=== PATIENT | female | born 1945 | race Caucasian/White ===

== ENCOUNTER 2020-02-01 09:26 | Outpatient (CLI) | payer OTHER, SELFPAY ==
--- NOTE | 2020-02-01 | ECG_ITS ---
Measurements Intervals [place] Rate: 72 P: 78 AL: 180 QRS: 29 QRSD: 100 T: 84 QT: 391 QTc: 429 Interpretive Statements SINUS RHYTHM DELAYED PRECORDIAL R/S TRANSITION BORDERLINE ST-T WAVE ABNORMALITY- LATERAL LEADS BORDERLINE ECG Electronically Signed On 02-01-2020 10:31:30 CDT by Rj Harvey D.O.
== END 2020-02-01 09:27 | disposition home or self-care (01) ==
PROVIDERS: PCP Internal Medicine
DX: I48.91 Unspecified atrial fibrillation (principal); R94.31 Abnormal electrocardiogram [ECG] [EKG]
CPT/HCPCS: 93005

== ENCOUNTER 2020-02-09 09:36 | Outpatient (CLI) | payer OTHER, SELFPAY ==
--- NOTE | 2020-02-09 | ECG_ITS ---
Measurements Intervals [place] Rate: 67 P: 90 AL: 175 QRS: 55 QRSD: 96 T: 81 QT: 396 QTc: 418 Interpretive Statements SINUS RHYTHM ATRIAL PREMATURE COMPLEX DELAYED PRECORDIAL R/S TRANSITION BORDERLINE ECG Electronically Signed On 02-09-2020 10:02:15 CDT by Rj Harvey D.O.
== END 2020-02-09 09:37 | disposition home or self-care (01) ==
PROVIDERS: PCP Internal Medicine
DX: I48.91 Unspecified atrial fibrillation (principal); R94.31 Abnormal electrocardiogram [ECG] [EKG]
CPT/HCPCS: 93005

== ENCOUNTER 2020-02-11 13:53 | Outpatient (CLI) | payer OTHER, SELFPAY ==
--- NOTE | 2020-02-11 | ECHO_ITS ---
Patient Info Name: Fallon Agarwal Age: 74 years : 1945 Gender: Female Ht: 68 in Wt: 180 lbs BSA: 2.00 m2 HR: 76 bpm BP: 138 / 76 mmHg Heart Rhythm: Sinus Rhythm Technical Quality: Good Exam Date: 02/11/2020 2:18 PM Exam Location: [facility] Patient Status: Outpatient Admit Date: 02/11/2020 Staff Ordering Physician: PHYSICIAN NOT ON STAFF, NONSTAFF Repairer Sash And Door: Roberta Tian RDCS Attending Provider: PHYSICIAN NOT ON STAFF, NONSTAFF Exam Type: CA echo doppler color flow Study Info Indications - afib Complete two-dimensional, color flow and Doppler transthoracic echocardiogram is performed. Summary 1. Normal global left ventricular function and size with an ejection fraction of 60-65%, grade 1 diastolic dysfunction, mild concentric left ventricular hypertrophy. 2. Left atrial chamber dimension is moderately enlarged. 3. There is no significant valve disease. 4. No pulmonary hypertension, estimated pulmonary arterial systolic pressure is 33 mmHg. 5. Normal sinus rhythm with PVCs. Left Ventricle Left ventricular chamber dimension is normal. Left ventricular systolic function is normal, estimated at 60-65%. There is mildly increased left ventricular wall thickness. Left ventricular septal wall motion is normal. The left ventricular diastolic function is grade I diastolic dysfunction. Right Ventricle Right ventricular chamber dimension is normal. Right ventricular systolic function is normal. Left Atria Left atrial chamber dimension is moderately enlarged. Right Atria Right atrial chamber dimension is normal. Aortic Valve The aortic valve is trileaflet. There is no aortic valve sclerosis. There is no aortic valve stenosis. There is trace aortic valve regurgitation. Pulmonic Valve The pulmonic valve is normal. There is no pulmonic valve stenosis. There is no pulmonic regurgitation. Mitral Valve The mitral valve has normal leaflets. There is no mitral valve stenosis. There is trace mitral valve regurgitation. Tricuspid Valve The tricuspid valve leaflets are normal. There is no significant tricuspid valve stenosis. There is no significant valve disease. No pulmonary hypertension, estimated pulmonary arterial systolic pressure is 33 mmHg. Pericardium/Pleural The pericardium appears normal. There is no pericardial effusion. Inferior Vena Cava Normal inferior vena cava with >50% collapse upon inspiration consistent with Empty right atrial pressure, 10 mmHg. Aorta The aortic root size at the sinus of Valsalva is normal. The prox ascending aorta size is normal. Left Ventricular Outflow Tract Name Value Normal LVOT 2D LVOT Diameter 2.0 cm LVOT Doppler LVOT Peak Gradient 7 mmHg LVOT Mean Gradient 4 mmHg LVOT VTI 21 cm LVOT VTI/AV VTI Ratio 0.7 LVOT Stroke Volume 64 ml LVOT CO 16.7 l/min LVOT CI 8.4 l/min/m2 Pulmonic Valv
== END 2020-02-11 13:54 | disposition home or self-care (01) ==
LOC: ANHCARD 13:54
PROVIDERS: PCP Internal Medicine
DX: I48.91 Unspecified atrial fibrillation (principal)
CPT/HCPCS: 93306

== ENCOUNTER 2020-03-01 15:00 | Outpatient (CLI) | payer OTHER, SELFPAY ==
--- NOTE | ~2020-03-01 | MM_ITS ---
EXAMINATION: MM screening [facility] HISTORY: Screening TECHNIQUE: Craniocaudal and mediolateral oblique 3-D tomosynthesis images were obtained and synthetic 2-D images were generated. CAD analysis was submitted and interpreted. COMPARISON: Comparison to multiple prior studies sequentially, with oldest reviewed study dated 12/22. BREAST PARENCHYMAL COMPOSITION: There are scattered areas of fibroglandular density. FINDINGS: There is no evidence of suspicious mass, calcification, or architectural distortion to sugg est malignancy in either breast. There has been no suspicious interval change. IMPRESSION: 1. No mammographic evidence of malignancy. 2. Recommend routine screening mammography in one year. BI-RADS Category 1: Negative Reviewed, dictated and finalized at location A.
== END 2020-03-01 15:01 | disposition home or self-care (01) ==
LOC: ANHIMG 15:01
PROVIDERS: PCP Internal Medicine; Visit Provider Nurse Practitioner
DX: Z12.31 Encounter for screening mammogram for malignant neoplasm of breast (principal)
CPT/HCPCS: 77063; 77067

== ENCOUNTER 2020-07-05 12:50 | Outpatient (NON) | payer OTHER, SELFPAY ==
[2020-07-05 23:32] LABS: SARS-CoV-2 RNA PCR Negative
== END 2020-07-05 12:51 ==
LOC: ANHCOVIDDT 12:51
PROVIDERS: PCP Internal Medicine; Visit Provider Nurse Practitioner
DX: J06.9 Acute upper respiratory infection, unspecified (principal); Z20.828 Contact with and (suspected) exposure to other viral communicable diseases
CPT/HCPCS: 87635; C9803; U0003

== ENCOUNTER 2020-07-25 13:40 | Outpatient (CLI) | payer OTHER, SELFPAY ==
--- NOTE | ~2020-07-25 | CT_ITS ---
EXAMINATION: CT sinus wo con DATE: 07/25/2020 14:01 INDICATION: Chronic sinusitis. Congestion. TECHNIQUE: Computed tomography (CT) of the paranasal sinuses was performed without contrast. Iterativ e reconstruction technique was employed. Exam dose: 293.24 mGy-cm total exam DLP. COMPARISON: 10/09/2012 CT sinuses FINDINGS: There is mild leftward bowing of the upper portion of the nasal septum and mild rightward b owing of the lower portion of the septum. Moderate prominence of the nasal turbinates. Mild intralamellar cell of right middle nasal turbinate. There is soft tissue thickening at the right maxillary ostium and infundibulum. The left infundibulum and maxillary ostium are patent. There is mild new comparison thickening of the maxillary sinuses, greater on the right. There is mode rate soft tissue thickening of both frontal sinuses. The ethmoid air cells and sphenoid sinuses are clear bilaterally. The mastoid air cells are normally developed and aerated bilaterally. Middle and inner ear apparatus appear unremarkable bilaterally. IMPRESSION: Partial opacification of right ostiomeatal unit Mild intralamellar cell of right middle nasal turbinate Moderate soft tissue thickening of the frontal sinuses and mildly compresses thickening of the maxill cecelia sinuses Reviewed, dictated and finalized at Location A. Reviewed, dictated and finalized at location A. COMMUNICATIONS MANAGER IMPRESSION: Partial opacification of right ostiomeatal unit Mild intralamellar cell of right middle nasal turbinate Moderate soft tissue thickening of the frontal sinuses and mildly compresses th ickening of the maxillary sinuses
== END 2020-07-25 13:41 | disposition home or self-care (01) ==
PROVIDERS: PCP Internal Medicine; Visit Provider Otolaryngology
DX: J32.9 Chronic sinusitis, unspecified (principal)
CPT/HCPCS: 70486

== ENCOUNTER → 2020-10-25 10:56 | Outpatient (REF) | payer OTHER, SELFPAY | LOC: ANHLAB 10:56 | PROVIDERS: PCP Internal Medicine; Visit Provider Nurse Practitioner | DX: R22.0 Localized swelling, mass and lump, head (principal) | CPT/HCPCS: 88304 ==

== ENCOUNTER 2021-01-26 13:58 | Emergency (ER) | payer OTHER, SELFPAY ==
--- NOTE | ~2021-01-26 | XR_ITS ---
EXAMINATION: XR foot RT min 3V DATE: 01/26/2021 14:35 INDICATION: Right foot pain TECHNIQUE: Dorsoplantar, lateral, and 2 oblique views of the right foot were obtained. COMPARISON: None. FINDINGS: Bone alignment is normal. There is no fracture. 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 There is plantar soft tissue swelling of the foot. No radiopaque foreign body is identified. IMPRESSION: 1. Soft tissue swelling without acute osseous abnormality. Reviewed, dictated and finalized at location B.
--- NOTE | 2021-01-26 14:19 | ED.LOWEXIN ---
HPI - Extremity Injury (Lower) General Chief Complaint: Extremity Injury, Lower Stated Complaint: rt foot injury Time Seen by Provider: 01/26/21 14:19 Source: patient Mode of arrival: ambulatory Limitations: no limitations History of Present Illness HPI Narrative: Fallon Agarwal is a 75 yo female with a PMH of HTN, afib, hypothyroid, [facility] on [place] that caused twisting of foot/ankle 1 week ago. Has iced foot and tried to pad calcaneus and still has pain with walking Related Data Home Medications Medication Instructions Recorded Confirmed flecainide 50 mg tablet 50 mg PO Q12H 03/10/20 01/26/21 Allergies Allergy/AdvReac Type Severity Reaction Status Date / Time fluticasone AdvReac Severe laryngitis Verified 01/26/21 14:19 [From Jeannette Fraser] salmeterol AdvReac Severe laryngitis Verified 01/26/21 14:19 [From Jeannette Fraser] Review of Systems Review of Systems: Narrative: CONSTITUTIONAL: Denies fever, chills, sweats. EYES: Denies visual changes, redness, discharge. ENT: Denies rhinorrhea, congestion, sore throat, otalgia. CARDIOVASCULAR: Denies chest pain, palpitations, edema. RESPIRATORY: Denies dyspnea, wheezing, cough GASTROINTESTINAL: Denies abdominal pain, nausea, vomiting, diarrhea. GENITOURINARY: Denies dysuria, hematuria, abnormal discharge SKIN: Denies rash or itching. NEUROLOGIC: Denies numbness, or focal weakness. PSYCHIATRIC: Denies anxiety or depression. R foot pain and swelling around heel and inside foor PMFSH Past Medical History Medical History (Updated 01/26/21 @ 14:55 by Lori Ferrer CNP) Bradycardia Chronic sinusitis Foot sprain Otitis media with effusion Seborrheic keratoses Tenosynovitis of thumb Upper respiratory infection Xerosis of skin Family History Family History Father Family history of respiratory disorder Family history of malignant neoplasm of urinary bladder Patient's father is Grandparent Carcinoma of colon Mother Patient's mother is Social History Social History Smoking packs per day: 1 Smoking cigarettes per day: 20.0 Years smoked: 20 Smoking pack-years: 20.00 Smoking status: Former smoker Tobacco type: cigarettes Second hand tobacco smoke exposure: No Smoking end date: 07/29/78 Alcohol intake: never Substance use: never Substance use type: does not use Comments At time of signature, I agree with nursing past medical, surgical, social and family history. There is no relevant family history pertinent to the presenting complaint. Exam Narrative: Exam Narrative: GENERAL: This is a well-nourished, well-developed patient, in mild distress. HEAD: normocephalic, atraumatic. EYES: Sclera clear/white. Vision is grossly intact. EARS: External ears normal, . Hearing grossly intact. NOSE: External nose normal without nasal discharge, nares without redness, no rhinorrhea. THROAT: Mucous membranes moist, NECK: Neck supple, CARDIOVASCULAR: Regular rate and rhythm without murmurs, gallops, or rubs. RESPIRATORY: Clear to auscultation. Breath sounds equal bilaterally. No wheezes, rales, or rhonchi. GASTROINTESTINAL: Abdomen soft, SKIN: warm, intact with no suspicious lesions or rash, good texture and turgor. NEURO: awake, alert, and oriented to person, place and time. There were no obvious focal neurologic abnormalities. Steady gait EXTREMITIES: Normal range of motion. On right she is able to wiggle toes has 2+ pedal pulse but has some soft tissue swelling on the lateral calcaneal area and pain in the medial midfoot BACK: Nontender without deformity Course Course Emergency Course: Patient came to [facility] to assess right foot after fall on a tree coming last week X-ray shows soft tissue swelling without acute osseous abnormality Placed in [place]omon wrap, instru
[2021-01-26 14:22] VITALS: BP 128/80; PULSE 81; RESP 16; TEMP 37.2; O2SAT 99
== END 2021-01-26 15:00 | disposition home or self-care (01) ==
PROVIDERS: Emergency Provider Nurse Practitioner; PCP Internal Medicine
DX: S93.691A Other sprain of right foot, initial encounter (principal); X50.9XXA Other and unspecified overexertion or strenuous movements or postures, initial encounter; I10 Essential (primary) hypertension; I48.91 Unspecified atrial fibrillation; E03.9 Hypothyroidism, unspecified
CPT/HCPCS: 73630; 99213; G0463

== ENCOUNTER 2021-01-27 14:01 | Outpatient (CLI) | payer OTHER, SELFPAY ==
--- NOTE | 2021-01-27 | ECHO_ITS ---
Patient Info Name: Fallon Agarwal Age: 75 years : 1945 Gender: Female Ht: 68 in Wt: 180 lbs BSA: 2.00 m2 HR: 67 bpm BP: 150 / 94 mmHg Technical Quality: Good Exam Date: 01/27/2021 2:51 PM Exam Location: [facility] Patient Status: Outpatient Admit Date: 01/27/2021 Staff Ordering Physician: BRIGITTE FELTON MD Senior Infrastructure Engineer: Carmen Ferrell RDCS Attending Provider: BRIGITTE FELTON MD Referring Physician: PURNIMA ARIZA; Exam Type: CA echo doppler color flow Study Info Indications I48.0 - Paroxysmal atrial fibrillation Complete two-dimensional, color flow and Doppler transthoracic echocardiogram is performed. Summary 1. Complete two-dimensional, color flow and Doppler transthoracic echocardiogram is performed. 2. Left ventricular chamber dimension is normal. 3. Left ventricular systolic function is normal, estimated at 60-65%. 4. The left ventricular diastolic function is grade II diastolic dysfunction. 5. E/e' 10 is mildly elevated. 6. Global longitudinal strain is normal at -21.9%. 7. Left atrial chamber dimension is mildly enlarged. 8. Right atrial chamber dimension is mildly enlarged. 9. There is mild mitral valve regurgitation. 10. There is mild tricuspid valve regurgitation. 11. No pulmonary hypertension, estimated pulmonary arterial systolic pressure is 24 mmHg. Left Ventricle E/e' 10 is mildly elevated. Global longitudinal strain is normal at -21.9%. Left ventricular chamber dimension is normal. Left ventricular systolic function is normal, estimated at 60-65%. The left ventricular diastolic function is grade II diastolic dysfunction. Right Ventricle Right ventricular systolic function is normal at 2.6 cm. Right ventricular chamber dimension is normal. Left Atria Left atrial chamber dimension is mildly enlarged. Right Atria Right atrial chamber dimension is mildly enlarged. Aortic Valve The aortic valve is trileaflet. There is no aortic valve stenosis. There is no aortic valve regurgitation. Pulmonic Valve There is no pulmonic regurgitation. Mitral Valve There is no mitral valve stenosis. There is mild mitral valve regurgitation. Tricuspid Valve There is mild tricuspid valve regurgitation. No pulmonary hypertension, estimated pulmonary arterial systolic pressure is 24 mmHg. Pericardium/Pleural There is no pericardial effusion. Inferior Vena Cava Normal inferior vena cava with >50% collapse upon inspiration consistent with normal right atrial pressure, 5 mmHg. Aorta The aortic root size at the sinus of Valsalva is normal. Left Ventricular Outflow Tract Name Value Normal LVOT 2D LVOT Diameter 1.9 cm LVOT Doppler LVOT Peak Gradient 4 mmHg LVOT Mean Gradient 2 mmHg LVOT VTI 20 cm LVOT VTI/AV VTI Ratio 1.2 LVOT Stroke Volume 59 ml LVOT CO 3.9 l/min LVOT CI 2.0 l/min/m2 Pulmonic Valve
== END 2021-01-27 14:02 | disposition home or self-care (01) ==
PROVIDERS: PCP Internal Medicine
DX: I48.91 Unspecified atrial fibrillation (principal)
CPT/HCPCS: 93306

== ENCOUNTER 2021-03-01 10:01 | Outpatient (CLI) | payer OTHER, SELFPAY ==
--- NOTE | ~2021-03-01 | DEXA_ITS ---
Bone Density Report Name: Fallon Agarwal Age: 75 Sex: Female Ethnicity: White Date of : 1945 Indication: osteopenia; height loss; inflammatory bowel disease; asthma or emphysema; hysterectomy; postmenopausal Referring Provider: Dariel Minor Study: Bone densitometry was performed. Exam Date: March 01, 2021 Accession number: [id number] Bone Density: Region BMD T-score Z-score Classification AP Spine (L1, L2, L3) 0.960 -0.5 2.0 Normal Femoral Neck (Left) 0.681 -1.5 0.7 Osteopenia Total Hip (Left) 0.750 -1.6 0.4 Osteopenia Total Hip Bilateral Avg 0.720 -1.8 0.2 Osteopenia Femoral Neck (Right) 0.716 -1.2 1.0 Osteopenia Total Hip (Right) 0.689 -2.1 -0.1 Osteopenia World Health Organization criteria for BMD impression classify patients as: Normal (T-score at or above -1.0), Osteopenia (T-score between -1.0 and -2.5), or Osteoporosis (T-score at or below -2.5). 10-year Fracture Risk(1): Major Osteoporotic Fracture 13% Hip Fracture 2.8% Reported Risk Factors: [place] (), Neck BMD=0.681, BMI=27.8 (1) FRAX(R) Version 3.08. Fracture probability calculated for an untreated patient. Fracture probability may be lower if the patient has received treatment. Previous Exams: Region Exam Age BMD T-score BMD Change BMD Change Date g/cm2 vs Baseline vs Previous AP Spine(L1, L2, L3) 03/01/2021 75 0.960 -0.5 -0.066(-6.4%)# -0.007(-0.7%) 01/23/2019 73 0.967 -0.5 -0.059(-5.7%)# 0.028(3.0%)* 01/10/2017 71 0.939 -0.7 -0.087(-8.5%)# -0.087(-8.5%)# 12/14/2011 66 1.026 0.1 Total Hip(Left) 03/01/2021 75 0.750 -1.6 -0.045(-5.7%)# -0.020(-2.6%) 01/23/2019 73 0.771 -1.4 -0.025(-3.1%)# 0.009(1.2%) 01/10/2017 71 0.762 -1.5 -0.034(-4.3%)# -0.034(-4.3%)# 12/14/2011 66 0.796 -1.2 Total Hip(Right) 03/01/2021 75 0.689 -2.1 -0.112(-14.0%) -0.037(-5.2%)* 01/23/2019 73 0.727 -1.8 -0.075(-9.3%)# -0.031(-4.1%)* 01/10/2017 71 0.758 -1.5 -0.043(-5.4%)# -0.043(-5.4%)# 12/14/2011 66 0.801 -1.2 *Denotes significance at 95% confidence level, LSC for AP Spine = 0.022 g/cm2, LSC for Total Hip = 0.027 g/cm2 Clinical Information Provided by Patient: Has used the following medications: Vitamin D Has the following medical conditions: Asthma or Emphysema, Inflammatory bowel diseases, Hysterectomy Patient maximum height was 69 Menopause Age: 38 Does not regularly consume dairy products Onset of menses at age 11 Number of children 2
== END 2021-03-01 10:02 | disposition home or self-care (01) ==
LOC: ANHIMG 10:03
PROVIDERS: PCP Internal Medicine; Visit Provider Internal Medicine
DX: M81.0 Age-related osteoporosis without current pathological fracture (principal); M85.852 Other specified disorders of bone density and structure, left thigh; M85.851 Other specified disorders of bone density and structure, right thigh
CPT/HCPCS: 77080

== ENCOUNTER 2021-03-07 10:46 | Outpatient (CLI) | payer OTHER, SELFPAY ==
--- NOTE | ~2021-03-07 | MM_ITS ---
EXAMINATION: MM screening [facility] HISTORY: Screening TECHNIQUE: Craniocaudal and mediolateral oblique 3-D tomosynthesis images were obtained and synthetic 2-D images were generated. CAD analysis was submitted and interpreted. COMPARISON: Comparison to multiple prior studies sequentially, with oldest reviewed study dated 08/2014. BREAST PARENCHYMAL COMPOSITION: There are scattered areas of fibroglandular density. FINDINGS: There is no evidence of suspicious mass, calcification, or architectural distortion to sugg est malignancy in either breast. There has been no suspicious interval change. IMPRESSION: 1. No mammographic evidence of malignancy. 2. Recommend routine screening mammography in one year. BI-RADS Category 1: Negative Reviewed, dictated and finalized at location A.
== END 2021-03-07 10:47 | disposition home or self-care (01) ==
PROVIDERS: PCP Internal Medicine; Visit Provider Nurse Practitioner
DX: Z12.31 Encounter for screening mammogram for malignant neoplasm of breast (principal)
CPT/HCPCS: 77063; 77067

== ENCOUNTER → 2021-03-08 09:33 | Outpatient (CLI) | payer OTHER, SELFPAY ==
--- NOTE | ~2021-03-08 | XR_ITS ---
EXAMINATION: XR chest 2V DATE: 03/08/2021 09:45 INDICATION: Cough. TECHNIQUE: Frontal and lateral views of the chest were obtained. COMPARISON: Chest 2 views 01/02/2017 FINDINGS: The chest demonstrates clear lungs without pneumonia, pleural effusion, or pneumothorax. Th e heart size is normal. IMPRESSION: 1. No acute cardiopulmonary disease. Reviewed, dictated and finalized at location A.
== END ==
PROVIDERS: PCP Internal Medicine; Visit Provider Nurse Practitioner
DX: R05 Cough (principal)
CPT/HCPCS: 71046

== ENCOUNTER 2021-04-19 09:19 | Outpatient (CLI) | payer OTHER, SELFPAY ==
--- NOTE | 2021-04-19 16:09 | WPDPFTINT ---
PFT Procedure Performed PFT Procedure Performed Plethysmography (Lung Vol) Diffusing Cap (DLCO) Flow Vol Loop Spirometry w/o Bronchodil PFT Interpretation This is a pulmonary function test with spirometry, plethysmography and diffusing capacity. The test was performed and results interpreted in accordance with the 2019 and 2005 ATS/ERS Task Force guidelines respectively using the Global Lung Function Initiative-2012 reference equations. Patient demonstrated good effort and cooperation. Reproducibility criteria were met. The quality of the spirometry maneuver was Grade A. Findings: Spirometry: The contour the inspiratory and expiratory flow tracing are normal. The FVC is 3.32 L, 114% predicted. The FEV1 is 2.40 L, 109% predicted. The FVC V1: FVC ratio 72%. Plethysmography: The total lung capacity is 4.92 L, 90% predicted. The functional residual capacity is 2.38 L, 75% predicted. The residual volume is 1.60 L, 65% predicted. Diffusing capacity: The absolute diffusion capacity is 14.3, 68% predicted. The diffusing capacity corrected for alveolar volume is 2.81, 69% predicted. Impression: The spirometry is normal without evidence of an obstructive abnormality. The Total lung capacity is normal with a decreased residual volume. This is an abnormal but nonspecific lung volume pattern. The absolute diffusing capacity is mildly decreased and normalizes when corrected for alveolar volume. There are no prior studies for comparison
== END 2021-04-19 09:20 | disposition home or self-care (01) ==
PROVIDERS: PCP Internal Medicine; Visit Provider Nurse Practitioner
DX: R53.83 Other fatigue (principal)
CPT/HCPCS: 94375; 94726; 94729

== ENCOUNTER → 2022-01-08 13:39 | Outpatient (CLI) | payer OTHER, SELFPAY ==
--- NOTE | ~2022-01-08 | US_ITS ---
EXAMINATION: US thyroid DATE: 01/08/2022 13:58 INDICATION: Nontoxic single thyroid nodule. TECHNIQUE: Multiple ultrasound images of the thyroid were obtained. COMPARISON: Ultrasound 07/03/2016, 07/12/16 FINDINGS: The right thyroid lobe measures 4.5 x 1.4 x 1.2 cm. The left thyroid lobe measures 3.1 x 1.9 x 0.9 c m. The thyroid demonstrates heterogeneous echogenicity. Vascularity is normal. The left thyroid lobe , there is an 8 mm solid, hypoechoic, wider than tall nodule with smooth margin without echogenic foc i (TI-RADS TR4). In the right thyroid lobe, there is a 1.8 cm solid, hypoechoic, wider than tall nodu le with ill-defined margin without echogenic foci (TR4), stable from 07/12/2016 when biopsy was benig n. In the right thyroid lobe, there is a 1.5 cm predominantly solid, isoechoic, wider than tall nodul e with ill-defined margin without echogenic foci (TR3), stable from 07/02/16. IMPRESSION: 1. Multinodular goiter, likely not clinically significant. No follow-up is needed. Reviewed, dictated and finalized at location B. IMPRESSION: 1. Multinodular goiter, likely not clinically significant. No follow-up is need ed.
== END ==
PROVIDERS: PCP Internal Medicine; Visit Provider Nurse Practitioner
DX: E04.2 Nontoxic multinodular goiter (principal)
CPT/HCPCS: 76536

== ENCOUNTER 2022-03-09 09:54 | Outpatient (CLI) | payer OTHER, SELFPAY ==
--- NOTE | ~2022-03-09 | MM_ITS ---
EXAMINATION: MM screening [facility] HISTORY: Screening mammogram TECHNIQUE: Craniocaudal and mediolateral oblique 3-D tomosynthesis images were obtained and synthetic 2-D images were generated. CAD analysis was submitted and interpreted. COMPARISON: 03/07/2021, 03/01/2020, 01/15/2019 BREAST PARENCHYMAL COMPOSITION: The breasts are almost entirely fatty. FINDINGS: There is no suspicious mass, calcification, or architectural distortion to suggest malignan cy in either breast. There has been no suspicious interval change. IMPRESSION: 1. No mammographic evidence of malignancy. 2. Recommend routine screening mammography in one year. BI-RADS Category 1: Negative Reviewed, dictated and finalized at location A.
== END 2022-03-09 09:55 | disposition home or self-care (01) ==
PROVIDERS: PCP Internal Medicine; Visit Provider Nurse Practitioner
DX: Z12.31 Encounter for screening mammogram for malignant neoplasm of breast (principal)
CPT/HCPCS: 77063; 77067

== ENCOUNTER 2022-03-14 13:16 | Outpatient (RCR) | payer OTHER, SELFPAY ==
[2022-03-14] MEDS: diphenhydrAMINE HCl CAP 25 MG CAPSULE PO (14:44)
[2022-03-14] MEDS: ACETAMINOPHEN 325 MG TABLET 650 MG PO (14:44)
[2022-03-14] MEDS: FAMOTIDINE 20 MG TABLET PO (14:45)
[2022-03-14 14:54] VITALS: BP 102/67; PULSE 77; RESP 18; TEMP 36.8; O2SAT 95
[2022-03-14] MEDS: BEBTELOVIMAB 175 MG/2 ML VIAL IV PUSH (15:03)
[2022-03-14 15:53] VITALS: BP 136/86; PULSE 78; RESP 18; O2SAT 96
== END 2022-03-14 16:00 ==
LOC: AMCINF 13:16
PROVIDERS: PCP Internal Medicine; Referring Provider Internal Medicine; Visit Provider Internal Medicine Hematology & Oncology
DX: U07.1 COVID-19 (principal); I12.9 Hypertensive chronic kidney disease with stage 1 through stage 4 chronic kidney disease, or unspecified chronic kidney disease; I25.10 Atherosclerotic heart disease of native coronary artery without angina pectoris; N18.9 Chronic kidney disease, unspecified
CPT/HCPCS: A9270; M0222; Q0222

== ENCOUNTER → 2022-05-18 10:25 | Outpatient (CLI) | payer OTHER, SELFPAY ==
--- NOTE | ~2022-05-18 | CT_ITS ---
EXAMINATION: CT sinus wo con DATE: 05/18/2022 10:40 INDICATION: Sinusitis TECHNIQUE: Computed tomography (CT) of the paranasal sinuses was performed without intravenous contra st. The dose-length product was 282.66 mGy-cm. Automated exposure control and iterative reconstructio n technique were employed. COMPARISON: CT dated 07/25/2020 FINDINGS: There is moderate mucosal thickening of the maxillary, ethmoid, sphenoid and frontal sinuse s. There is mucoperiosteal reaction of the maxillary sinuses. Mastoids are pneumatized. Mastoids are pneumatized. IMPRESSION: 1. Progression of moderate chronic pansinusitis. Reviewed, dictated and finalized at location A.
== END ==
PROVIDERS: PCP Internal Medicine; Visit Provider Otolaryngology
DX: J32.9 Chronic sinusitis, unspecified (principal)
CPT/HCPCS: 70486

== ENCOUNTER 2022-06-06 13:13 | Emergency (ER) | payer OTHER, SELFPAY ==
[2022-06-06 13:25] VITALS: BP 131/62; PULSE 80; RESP 16; TEMP 37.2; O2SAT 98
--- NOTE | 2022-06-06 13:28 | ED.GENADULT ---
HPI - General Adult General Chief complaint: Wound/Laceration Stated complaint: INFECTED THUMB Time Seen by Provider: 06/06/22 13:28 Source: patient Mode of arrival: ambulatory Limitations: no limitations History of Present Illness HPI narrative: 77-year-old female presents with redness, swelling and pain to right thumb. States symptoms started yesterday. Is concerned for infection. Does have acrylic nails. Was able to remove the nail [place] to see nail bed. History of nail fungal infection but states symptoms are not similar. All systems reviewed and negative except as noted above. Related Data Home Medications Medication Instructions Recorded Confirmed flecainide 50 mg tablet 50 mg PO Q12H 03/10/20 06/06/22 calcium carbonate 500 mg/5 mL 250 mg PO BID 12/19/21 06/06/22 calcium (1,250 mg/5 mL) oral suspension cholecalciferol (vitamin D3) 25 25 mcg PO DAILY 12/19/21 06/06/22 mcg (1,000 unit) capsule Allergies Allergy/AdvReac Type Severity Reaction Status Date / Time salmeterol AdvReac Severe laryngitis Verified 06/06/22 13:24 [From Jeannette Fraser] Review of Systems Review of Systems: CONSTITUTIONAL: Denies fever, chills, or sweats. EYES: Denies visual changes, redness, or discharge. ENT: Denies rhinorrhea, congestion, sore throat, or otalgia. CARDIOVASCULAR: Denies chest pain, palpitations, or edema. RESPIRATORY: Denies cough or dyspnea. GASTROINTESTINAL: Denies abdominal pain, nausea, vomiting, or diarrhea. GENITOURINARY: Denies dysuria or hematuria. SKIN: Denies rash or itching. Reports redness, swelling, tenderness to right thumb at cuticle. MUSCULOSKELETAL: Denies back pain, joint pain, or myalgia. NEUROLOGIC: Denies headache, numbness, or weakness. PSYCHIATRIC: Denies anxiety or depression. All other systems reviewed are negative, except as documented in HPI. [facility] Past Medical History Medical History Asthma Bradycardia Chronic sinusitis COVID-19 Crohn disease Foot sprain Otitis media with effusion Seborrheic keratoses Tenosynovitis of thumb Thyroid disease Upper respiratory infection Xerosis of skin Surgical History Surgical History S/P hysterectomy Family History Family History Father Family history of respiratory disorder Family history of malignant neoplasm of urinary bladder Patient's father is Bladder cancer Grandparent Carcinoma of colon Cerebrovascular accident Bladder cancer Mother Patient's mother is Hypertension Cerebrovascular accident Social History Social History Smoking packs per day: 1 Smoking cigarettes per day: 20.0 Years smoked: 20 Smoking pack-years: 20.00 Smoking status: Former smoker Tobacco type: cigarettes Second hand tobacco smoke exposure: No Smoking end date: 07/29/78 Alcohol intake: current Alcohol use details: occasional wine Substance use: never Substance use type: does not use Comments At time of signature, agree with nursing past medical, surgical, social and family history. There is no relevant family history pertinent to the presenting complaint. Exam Narrative: GENERAL: This is a well-nourished, well-developed patient, in no apparent distress. HEAD: normocephalic, atraumatic. EYES: PERRL. Sclera clear/white. Vision is grossly intact. EARS: External ears normal NOSE: External nose normal NECK: Neck supple, non-tender without lymphadenopathy, masses or thyromegaly. CARDIOVASCULAR: Regular rate and rhythm without murmurs, gallops, or rubs. RESPIRATORY: Clear to auscultation. Breath sounds equal bilaterally. No wheezes, rales, or rhonchi. SKIN: warm, Dry, intact with no suspicious lesions or rash, good texture and turgor. mild erythema to cuticle of
== END 2022-06-06 13:38 | disposition home or self-care (01) ==
PROVIDERS: Emergency Provider Nurse Practitioner Family; PCP Internal Medicine
DX: L03.011 Cellulitis of right finger (principal); Z87.891 Personal history of nicotine dependence; J45.909 Unspecified asthma, uncomplicated; Z86.16 Personal history of COVID-19; K50.90 Crohn's disease, unspecified, without complications; E07.9 Disorder of thyroid, unspecified
CPT/HCPCS: 99213; G0463

== ENCOUNTER 2022-08-09 10:24 | Emergency (ER) | payer OTHER, SELFPAY ==
--- NOTE | ~2022-08-09 | XR_ITS ---
EXAMINATION: XR shoulder LT min 2V DATE: 08/09/2022 10:50 INDICATION: Left shoulder pain. TECHNIQUE: 4 views of left shoulder were obtained. COMPARISON: None. FINDINGS: Bone alignment is normal. No fracture. There is mild osteoarthritis of glenohumeral joint a nd severe osteoarthritis of acromioclavicular joint. IMPRESSION: 1. Polyarticular osteoarthritis. Reviewed, dictated and finalized at location A. E INSTALLER
--- NOTE | 2022-08-09 10:29 | ED.UPPEXIN ---
HPI - Extremity Injury (Upper) General Chief Complaint: Extremity Injury, Upper Stated Complaint: lt shoulder injury Time Seen by Provider: 08/09/22 11:08 Source: patient and RN notes reviewed Mode of arrival: ambulatory Limitations: no limitations History of Present Illness HPI narrative: 77-year-old female presents with concern for left shoulder pain. Reports before she was pulling a barrel of limbs across her yd with her left arm, with subsequent left arm and shoulder pain. She reports the pain is in the joint and radiates down the arm. Reports the pain worsens with certain positions such as reaching behind her back to put her bra on. She reports it is tender to touch. She reports she cannot lie on it at nighttime. Reports she sleeps in a recliner sometimes because of the pain. She denies chest pain, shortness of breath, nausea, diaphoresis. Pain is reproducible MD complaint: injury to: left and shoulder Related Data Home Medications Medication Instructions Recorded Confirmed flecainide 50 mg tablet 50 mg PO Q12H 03/10/20 06/06/22 calcium carbonate 500 mg/5 mL 250 mg PO BID 12/19/21 06/06/22 calcium (1,250 mg/5 mL) oral suspension cholecalciferol (vitamin D3) 25 25 mcg PO DAILY 12/19/21 06/06/22 mcg (1,000 unit) capsule Allergies Allergy/AdvReac Type Severity Reaction Status Date / Time salmeterol AdvReac Severe laryngitis Verified 06/06/22 13:24 [From Jeannette Fraser] Review of Systems Review of Systems: CONSTITUTIONAL: Denies malaise, chills, sweats, or fever. SKIN: Denies rash or itching, open skin, laceration, abrasion, redness, warmth, swelling. MUSCULOSKELETAL: Reports left shoulder pain NEUROLOGIC: Denies numbness, weakness All systems reviewed & are unremarkable except as noted in HPI and below PMFSH Past Medical History Medical History Asthma Bradycardia Chronic sinusitis COVID-19 Crohn disease Foot sprain Otitis media with effusion Seborrheic keratoses Tenosynovitis of thumb Thyroid disease Upper respiratory infection Xerosis of skin Surgical History Surgical History S/P hysterectomy Family History Family History Father Family history of respiratory disorder Family history of malignant neoplasm of urinary bladder Patient's father is Bladder cancer Grandparent Carcinoma of colon Cerebrovascular accident Bladder cancer Mother Patient's mother is Hypertension Cerebrovascular accident Social History Social History Smoking packs per day: 1 Smoking cigarettes per day: 20.0 Years smoked: 20 Smoking pack-years: 20.00 Smoking status: Former smoker Tobacco type: cigarettes Second hand tobacco smoke exposure: No Smoking end date: 07/29/78 Alcohol intake: current Alcohol use details: occasional wine Substance use: never Substance use type: does not use Comments At time of signature, agree with nursing past medical, surgical, social and family history. There is no relevant family history pertinent to the presenting complaint Exam Narrative: GENERAL: Well-appearing, well-nourished, and in no acute distress. HEAD: Normocephalic, atraumatic. EYES: PERRLA, conjunctivae clear NECK: Supple. CHEST: Speaks in full sentences. No respiratory distress. HEART: Regular rate and rhythm. Normal and equal peripheral pulses. EXTREMITIES: Left upper extremity has grossly normal strength and sensation, range of motion limited due to pain. No edema or ecchymosis. 5/5 strength with shoulder abduction, adduction. Normal sensation with sensitivity to light touch and pain. Shoulder joint tenderness. No open wounds, no skin tenting, no devitalized tissue or atrophy, no trophic changes, no obvious deformit
[2022-08-09 10:43] VITALS: BP 141/89; PULSE 80; RESP 16; TEMP 36.9; O2SAT 100
== END 2022-08-09 11:23 | disposition home or self-care (01) ==
PROVIDERS: Emergency Provider Nurse Practitioner; PCP Internal Medicine
DX: M25.512 Pain in left shoulder (principal); T14.90XA Injury, unspecified, initial encounter; X50.0XXA Overexertion from strenuous movement or load, initial encounter; J45.909 Unspecified asthma, uncomplicated; K50.90 Crohn's disease, unspecified, without complications; E07.9 Disorder of thyroid, unspecified; Z87.891 Personal history of nicotine dependence
CPT/HCPCS: 73030; 99213; G0463

== ENCOUNTER 2023-02-25 10:39 | Outpatient (CLI) | payer OTHER, SELFPAY ==
[2023-02-25 19:24] LABS: Basophils Absolute Auto 0.1 K/mm3 (0.0-0.1); Basophils Percent Auto 0.8 % (0.2-1.2); Eosinophils Absolute Auto 0.2 K/mm3 (0-0.3); Eosinophils Percent Auto 1.9 % (0-4.4); Hematocrit 42.6 % (37.0-47.0); Hemoglobin 13.3 g/dL (12.0-15.0); Immature Granulocyte Absolute 0.05 K/mm3 (0.00-0.031); Immature Granulocyte Percent A 0.6 % (0-0.5); Lymphocytes Absolute Auto 1.77 K/mm3 (0.9-3.2); Lymphocytes Percent Auto 21.3 % (18.3-44.2); Mean Corpuscular HGB Conc 31.2 g/dl (32-36); Mean Corpuscular Hemoglobin 27.4 pg (26-34); Mean Corpuscular Volume 87.8 fl (80-100); Mean Platelet Volume 9.4 fl (7.4-10.4); Monocytes Absolute Auto 0.7 K/mm3 (0.1-0.6); Monocytes Percent Auto 8.9 % (2.6-8.5); Neutrophils Absolute Auto 5.5 K/mm3 (1.3-6.7); Neutrophils Percent Auto 66.5 % (45.5-73.1); Platelet Count Result 336 k/mm3 (150-375); Red Blood Count 4.85 M/mm3 (4.2-5.4); Red Cell Distribution Width 14.6 % (11.5-14.5); White Blood Count 8.3 K/mm3 (4.5-10.0)
[2023-02-25 19:28] LABS: Alanine Aminotransferase 18 U/L (6-35); Alkaline Phosphatase 67 U/L (38-126); Anion Gap 5 mmol/L (8-16); Aspartate Amino Transferase 38 U/L (14-36); Bilirubin,Total 0.5 mg/dL (0.2-1.3); Blood Urea Nitrogen 24 mg/dL (7-17); Calcium 9.7 mg/dL (8.4-10.2); Carbon Dioxide 28 mmol/L (22-30); Chloride 102 mmol/L (98-107); Estimated Glomerular Filt Rate 53; Glucose 77 mg/dL (65-110); Potassium 4.3 mmol/L (3.4-5.0); Sodium 135 mmol/L (137-145)
== END 2023-02-25 10:40 | disposition home or self-care (01) ==
LOC: ANHGOSHLAB 10:40
PROVIDERS: PCP Internal Medicine; Visit Provider Clinical Nurse Specialist
DX: N18.30 Chronic kidney disease, stage 3 unspecified (principal); E03.9 Hypothyroidism, unspecified; E78.5 Hyperlipidemia, unspecified
CPT/HCPCS: 36415; 80053; 84443; 85025

== ENCOUNTER → 2023-05-24 10:54 | Outpatient (CLI) | payer OTHER, SELFPAY ==
--- NOTE | ~2023-05-24 | DEXA_ITS ---
Bone Density Report Name: ARGENIS KOEHLER Age: 78 Sex: Female Ethnicity: White Date of : 1945 Indication: postmenopausal; screening for osteoporosis; height loss; history of glucocorticoids; asthma or emphysema; hysterectomy; Referring Provider: Sherie Colón Study: Bone densitometry was performed. Exam Date: May 24, 2023 Accession number: [id number] Bone Density: Region BMD T-score Z-score Classification AP Spine (L1-L4) 0.956 -0.8 1.9 Normal Femoral Neck (Left) 0.687 -1.5 0.8 Osteopenia Total Hip (Left) 0.680 -2.2 -0.1 Osteopenia Femoral Neck (Right) 0.699 -1.4 1.0 Osteopenia Total Hip (Right) 0.643 -2.5 -0.4 Osteoporosis Total Hip Mean 0.662 -2.4 -0.3 Osteopenia World Health Organization criteria for BMD impression classify patients as: Normal (T-score at or above -1.0), Osteopenia (T-score between -1.0 and -2.5), or Osteoporosis (T-score at or below -2.5). 10-year Fracture Risk: FRAX not reported because: Some T-score for Spine Total or Hip Total or Femoral Neck at or below -2.5 Clinical Information Provided by Patient: Has taken Glucocorticoids Has used the following medications: Vitamin D Has the following medical conditions: Asthma or Emphysema, Hysterectomy Patient maximum height was 69 Menopause Age: 37 Onset of menses at age 13 Number of children 2 Impression: The patient has osteoporosis, based on the Right Total Hip T-score. The patient has risk factors, including: history of glucocorticoid therapy. Discussion: INCREASED RISK OF FRACTURE. BONE DENSITY IS UNDESIRABLY LOW AT ONE OR MORE SKELETAL SITES, CONSISTENT WITH POSTMENOPAUSAL OSTEOPOROSIS. This patient's lowest T-score meets the World Health Organization's (WHO) criteria for osteoporosis at one or more sites (T-score -2.5 or below). In untreated patients, the risk of osteoporotic fracture increases approximately two-fold for each 1.0 SD decrease in T-score. Low bone density is not the only risk factor for fracture; also consider factors such as patient's age, frailty or poor health, risk of falling, risk of injury, previous osteoporotic fracture, family history of osteoporosis, cigarette smoking, low body weight, etc. Not everyone with low bone mineral density has osteoporosis; osteomalacia and other metabolic bone disorders should also be considered. Patients who have osteoporosis should be evaluated for specific diseases and conditions (secondary causes) that may cause or contribute to bone loss. The [place] Association of Clinical Endocrinologists (AACE) and National Osteoporosis Foundation (NOF) recommend pharmacologic intervention for all postmenopausal women whose T-score is in this range. The patient should follow a healthful lifestyle (good nutrition with adequate calcium and vitamin D, and appropriate weight-bearing ex
== END ==
PROVIDERS: PCP Nurse Practitioner; Visit Provider Nurse Practitioner
DX: M81.0 Age-related osteoporosis without current pathological fracture (principal); Z78.0 Asymptomatic menopausal state
CPT/HCPCS: 77080

== ENCOUNTER → 2023-06-06 14:02 | Outpatient (CLI) | payer OTHER, SELFPAY ==
--- NOTE | ~2023-06-06 | XR_ITS ---
EXAMINATION: XR hip RT min 2V DATE: 06/06/2023 14:24 INDICATION: Right hip pain TECHNIQUE: Two views of right hip were obtained. COMPARISON: 06/28/2016 FINDINGS: Bone alignment is normal. There is no fracture. There is mild osteoarthritis of the hip. Th e soft tissues are unremarkable. IMPRESSION: 1. No acute osseous abnormality. Reviewed, dictated and finalized at location L. RY SUPERVISOR
--- NOTE | ~2023-06-06 | XR_ITS ---
EXAMINATION: XR shoulder LT min 2V INDICATION: Left shoulder pain TECHNIQUE: Four views of the left shoulder are submitted. COMPARISON: 08/09/2022 FINDINGS: Normal alignment. No fracture. There is severe osteoarthritis of the acromioclavicular join t. There is moderate osteoarthritis of the glenohumeral joint. Soft tissues are unremarkable. IMPRESSION: 1. Osteoarthritis without acute osseous abnormality. Reviewed, dictated and finalized at location L. RD WASTE HANDLER
== END ==
PROVIDERS: PCP Internal Medicine; Visit Provider Clinical Nurse Specialist
DX: M25.551 Pain in right hip (principal); M19.012 Primary osteoarthritis, left shoulder
CPT/HCPCS: 73030; 73502

== ENCOUNTER 2023-06-21 11:19 | Outpatient (CLI) | payer OTHER, SELFPAY ==
[2023-06-21 18:26] LABS: Anion Gap 9 mmol/L (8-16); Blood Urea Nitrogen 22 mg/dL (7-17); Calcium 9.7 mg/dL (8.4-10.2); Carbon Dioxide 26 mmol/L (22-30); Chloride 103 mmol/L (98-107); Estimated Glomerular Filt Rate 60; Glucose 70 mg/dL (65-110); Potassium 3.9 mmol/L (3.4-5.0); Sodium 138 mmol/L (137-145)
[2023-06-21 18:38] LABS: Vitamin D 25 Hydroxy 35.9 ng/mL
== END 2023-06-21 11:20 | disposition home or self-care (01) ==
LOC: ANHGOSHLAB 11:22
PROVIDERS: PCP Internal Medicine; Visit Provider Clinical Nurse Specialist
DX: R94.4 Abnormal results of kidney function studies (principal); E55.9 Vitamin D deficiency, unspecified
CPT/HCPCS: 36415; 80048; 82306

== ENCOUNTER 2023-08-08 10:59 | Outpatient (RCR) | payer OTHER, SELFPAY ==
[2023-08-08 13:40] LABS: Albumin Level 4.2 g/dL (3.5-5.1); Calcium 10.2 mg/dL (8.4-10.2)
== END 2023-08-09 11:28 | disposition other institution (70) ==
LOC: AMCINF 10:59
PROVIDERS: PCP Internal Medicine; Referring Provider Clinical Nurse Specialist; Visit Provider Internal Medicine Hematology & Oncology
DX: M81.0 Age-related osteoporosis without current pathological fracture (principal); Z88.8 Allergy status to other drugs, medicaments and biological substances; Z78.0 Asymptomatic menopausal state
CPT/HCPCS: 36415; 82040; 82310

== ENCOUNTER 2023-10-10 12:50 | Outpatient (CLI) | payer OTHER, SELFPAY ==
--- NOTE | ~2023-10-10 | MM_ITS ---
EXAMINATION: MM screening salome BI w lynn HISTORY: Screening mammogram TECHNIQUE: Craniocaudal and mediolateral oblique 3-D tomosynthesis images were obtained and synthetic 2-D images were generated. CAD analysis was submitted and interpreted. COMPARISON: 03/09/2022, bilateral screening mammogram examinations BREAST PARENCHYMAL COMPOSITION: The breasts are almost entirely fatty. FINDINGS: There is no evidence of suspicious mass, calcification, or architectural distortion to sugg est malignancy in either breast. There has been no suspicious interval change. IMPRESSION: 1. No mammographic evidence of malignancy. 2. Recommend routine screening mammography in one year. BI-RADS Category 1: Negative Reviewed, dictated and finalized at location A.
== END 2023-10-10 12:51 ==
PROVIDERS: PCP Internal Medicine; Visit Provider Internal Medicine
DX: Z12.31 Encounter for screening mammogram for malignant neoplasm of breast (principal)
CPT/HCPCS: 77063; 77067

== ENCOUNTER 2024-01-21 10:10 | Outpatient (CLI) | payer OTHER, SELFPAY ==
[2024-01-21 12:25] LABS: Basophils Absolute Auto 0.1 K/mm3 (0.0-0.1); Basophils Percent Auto 0.7 % (0.2-1.2); Eosinophils Absolute Auto 0.2 K/mm3 (0-0.3); Eosinophils Percent Auto 2.7 % (0-4.4); Hematocrit 41.9 % (37.0-47.0); Hemoglobin 13.2 g/dL (12.0-15.0); Immature Granulocyte Absolute 0.04 K/mm3 (0.00-0.031); Immature Granulocyte Percent A 0.5 % (0-0.5); Lymphocytes Absolute Auto 1.31 K/mm3 (0.9-3.2); Lymphocytes Percent Auto 17.9 % (18.3-44.2); Mean Corpuscular HGB Conc 31.5 g/dl (32-36); Mean Corpuscular Hemoglobin 27.7 pg (26-34); Mean Platelet Volume 9.6 fl (7.4-10.4); Monocytes Absolute Auto 0.8 K/mm3 (0.1-0.6); Monocytes Percent Auto 10.3 % (2.6-8.5); Neutrophils Percent Auto 67.9 % (45.5-73.1); Platelet Count Result 322 k/mm3 (150-375); Red Blood Count 4.76 M/mm3 (4.2-5.4); Red Cell Distribution Width 14.9 % (11.5-14.5); White Blood Count 7.3 K/mm3 (4.5-10.0)
[2024-01-21 12:50] LABS: Alanine Aminotransferase 17 U/L (6-35); Albumin Level 3.9 g/dL (3.5-5.1); Alkaline Phosphatase 52 U/L (38-126); Anion Gap 9 mmol/L (4-12); Aspartate Amino Transferase 23 U/L (14-36); Bilirubin,Total 0.4 mg/dL (0.2-1.3); Blood Urea Nitrogen 21 mg/dL (7-17); Calcium 9.9 mg/dL (8.4-10.2); Carbon Dioxide 26 mmol/L (22-30); Chloride 105 mmol/L (98-107); Cholesterol 172 mg/dL (0-200); Estimated Glomerular Filt Rate 53; Glucose 84 mg/dL (65-110); HDL Direct 76 mg/dL; Potassium 4.3 mmol/L (3.4-5.0); Sodium 140 mmol/L (137-145); Triglycerides 86 mg/dL (<150)
[2024-01-21 13:01] LABS: LDL Cholesterol Direct 88 mg/dL
[2024-01-21 13:07] LABS: Vitamin D 25 Hydroxy 29.6 ng/mL
[2024-01-21 13:21] LABS: Immunoglobulin G 1144 mg/dL (700-1600); Immunoglobulin M 121 mg/dL (40-230)
[2024-01-21 17:07] LABS: Immunoglobulin A 351 mg/dL (70-400)
[2024-01-22 16:49] LABS: Immunoglobulin E 16 kU/L (<OR=114)
[2024-01-24 08:18] LABS: Reference Lab Test Result 0.39
== END 2024-01-21 10:11 | disposition home or self-care (01) ==
PROVIDERS: PCP Internal Medicine
DX: E03.9 Hypothyroidism, unspecified (principal); J32.4 Chronic pansinusitis; E55.9 Vitamin D deficiency, unspecified; R94.4 Abnormal results of kidney function studies; J45.909 Unspecified asthma, uncomplicated; M81.0 Age-related osteoporosis without current pathological fracture; I10 Essential (primary) hypertension; I48.0 Paroxysmal atrial fibrillation; E78.00 Pure hypercholesterolemia, unspecified
CPT/HCPCS: 36415; 80053; 80061; 82306; 82784; 84443; 85025; 86684

== ENCOUNTER 2024-05-13 13:29 | Emergency (ER) | payer OTHER, SELFPAY ==
[2024-05-13 13:44] VITALS: BP 167/99; PULSE 82; RESP 16; TEMP 36.4; O2SAT 99
[2024-05-13 13:46] VITALS: BP 165/99
--- NOTE | 2024-05-13 14:31 | ED.DIZZY ---
HPI - Dizziness General Chief Complaint: Dizziness Stated Complaint: dizziness Time Seen by Provider: 05/13/24 13:58 Source: patient, RN notes reviewed and old records reviewed Mode of arrival: ambulatory Limitations: no limitations History of Present Illness HPI Narrative: 78 year old female who presents to [facility] with complaints of dizziness since Saturday which has not improved. Patient reports history of hypertension and takes medication daily with pressure 167/99 left , right 160/116 upon arrival to clinic. Patient reports that she has terrible headache today and feels like her head is going to explode. Patient sees cardiology at [facility] for paroxysmal a fib and is on daily flecainide, takes no blood thinners, Patient reports that she just seen her collision technician in past 2 weeks and she just completed Amoxicillin either or Saturday for sinus infection. Patient reports that dizziness is worse with changing positions and especially worse when lying in bed.Orthostatics completed and unremarkable. MD elicited complaint: dizziness and other (headache) Pertinent past history: other (sinusitis, paroxysmal afib, hypertension) Onset (ago): day(s) (5) Severity: moderate Exacerbating factors: change in body position and position/lying down Related Data Home Medications Medication Instructions Recorded Confirmed flecainide 50 mg tablet 50 mg PO Q12H 03/10/20 05/13/24 azelastine 137 mcg (0.1 %) nasal 137 mcg intranasal Q12H 08/28/22 04/09/24 spray budesonide-formoterol HFA 160 2 puff inhalation BID 03/05/24 05/13/24 mcg-4.5 mcg/actuation aerosol inhaler Allergies Allergy/AdvReac Type Severity Reaction Status Date / Time salmeterol AdvReac Severe laryngitis Verified 05/13/24 14:01 [From Jeannette Fraser] Review of Systems Review of Systems: CONSTITUTIONAL: Denies fever, chills, or sweats. EYES: Denies visual changes, redness, or discharge. ENT: Denies rhinorrhea, congestion, sore throat, or otalgia. CARDIOVASCULAR: Denies chest pain, palpitations, or edema. RESPIRATORY: Denies cough or dyspnea. GASTROINTESTINAL: Denies abdominal pain, nausea, vomiting, or diarrhea. GENITOURINARY: Denies dysuria or hematuria. SKIN: Denies rash or itching. MUSCULOSKELETAL: Denies back pain, joint pain, or myalgia. NEUROLOGIC: Reports headache, no numbness, or weakness.reports dizziness PSYCHIATRIC: Reports history of anxiety or depression. All systems reviewed & are unremarkable except as noted in HPI and below PMFSH Past Medical History Medical History (Updated 05/15/24 @ 10:55 by Sabina Shaffer NP) Asthma Bradycardia Chronic sinusitis Cough COVID-19 COVID-19 Crohn disease Degenerative arthritis of left shoulder region Essential (primary) hypertension Foot sprain Otitis media with effusion Paroxysmal atrial fibrillation Rhinitis Seborrheic keratoses Tendonitis of left rotator cuff Tenosynovitis of thumb Thyroid disease Upper respiratory infection Xerosis of skin Surgical History Surgical History (Updated 05/15/24 @ 10:38 by Sabina Shaffer NP) H/O inguinal hernia repair repair of hernia at ileostomy site History of intestinal surgery ileostomy History of tonsillectomy Hx of appendectomy Hx of sinus surgery S/P hysterectomy Family History Family History Father Family history of respiratory disorder Family history of malignant neoplasm of urinary bladder Patient's father is Bladder cancer Grandparent Carcinoma of colon Cerebrovascular accident Bladder cancer Mother Patient's mother is Hypertension Cerebrovascular accident Social History Social History Smoking packs per day: 1 Smoking cigarettes per day: 20.0 Years smoked: 20 Smoking pack-years: 20.00 Smoking status: Former smoker Tobacco type: cigarettes Second hand
--- NOTE | 2024-05-13 14:40 | ECG_ITS ---
Test Date: 2024-05-13 13:45:52 Measurements Intervals [place] Rate: 67 P: 79 MS: 176 QRS: -56 QRSD: 147 T: 85 QT: 419 QTc: 443 Interpretive Statements SINUS RHYTHM WITH SINUS ARRHYTHMIA MARKED LEFT AXIS DEVIATION [QRS AXIS < -30] LEFT BUNDLE BRANCH BLOCK [120+ ms QRS DURATION, 80+ ms Q/S IN V1/V2, 85+ ms R IN I/aVL/V5/V6] No previous ECG available for comparison Electronically Signed On 05-13-2024 14:58:30 CDT by Jj Jules M.D.
[2024-05-13 14:54] VITALS: BP 170/119; BP 177/107; PULSE 75; PULSE 79
[2024-05-13 14:55] VITALS: BP 160/116; PULSE 87
== END 2024-05-13 15:09 | disposition short-term general hospital (02) ==
PROVIDERS: Emergency Provider Registered Nurse; PCP Internal Medicine
DX: R42 Dizziness and giddiness (principal); I10 Essential (primary) hypertension; R51.9 Headache, unspecified; I44.7 Left bundle-branch block, unspecified; Z87.891 Personal history of nicotine dependence; K50.90 Crohn's disease, unspecified, without complications; I48.0 Paroxysmal atrial fibrillation; J45.909 Unspecified asthma, uncomplicated; M19.012 Primary osteoarthritis, left shoulder; Z86.16 Personal history of COVID-19
CPT/HCPCS: 93005; 99213; G0463

== ENCOUNTER 2024-05-13 15:33 | Emergency (ER) | payer OTHER, SELFPAY ==
[2024-05-13] VITALS (19 sets, daily range): BP systolic 143–155; BP diastolic 97–114; PULSE 76–94; RESP 12–27; TEMP 36.7; O2SAT 95–100
--- NOTE | ~2024-05-13 | CT_ITS ---
CT brain wo con Ordering provider: Cliff Loredo APRN History: 78 years Female with . dizzines . Comparison: May 18, 2022 Technique: CT of the head without contrast. Radiation reduction technique utilized.The dose-length product was 605.33 mGy-cm. FINDINGS: BRAIN PARENCHYMA AND CSF SPACES: No midline shift, mass effect or hemorrhage. The brain parenchyma and CSF spaces are otherwise norm al. VISUALIZED PARANASAL SINUSES: Bilateral frontal sinusitis. MASTOIDS: Well aerated. BONES: The bones appear intact. SOFT TISSUES: Visualized nasopharynx is normal. Superficial soft tissues are normal. IMPRESSION: No acute intracranial findings. Reviewed, dictated and finalized at location A.
--- NOTE | ~2024-05-13 | XR_ITS ---
XR chest 2V Ordering provider: Cliff Loredo History: 78 years Female with . dizziness, HTN . Comparison: March 08, 2021 FINDINGS: MEDIASTINUM: The cardiac silhouette is not enlarged. Prominent kristofer more on the right side. LUNGS: No infiltrates, effusions or pneumothorax. Emphysematous changes of the lungs. OTHER: No free air under the diaphragm. Degenerative changes of the spine. IMPRESSION: No acute cardiopulmonary pathology. Reviewed, dictated and finalized at location A.
--- NOTE | 2024-05-13 16:04 | ECG_ITS ---
Test Date: 2024-05-13 16:08:20 Measurements Intervals [place] Rate: 82 P: 81 IA: 148 QRS: -56 QRSD: 143 T: 100 QT: 393 QTc: 461 Interpretive Statements SINUS RHYTHM WITH OCCASIONAL SUPRAVENTRICULAR PREMATURE COMPLEXES MARKED LEFT AXIS DEVIATION [QRS AXIS < -30] LEFT BUNDLE BRANCH BLOCK [120+ ms QRS DURATION, 80+ ms Q/S IN V1/V2, 85+ ms R IN I/aVL/V5/V6] Compared to ECG 05/13/2024 13:45:52 NO SIGNIFICANT CHANGES Electronically Signed On 05-14-2024 10:07:51 CDT by Jj Jules M.D.
--- NOTE | 2024-05-13 16:08 | PC.NURSE ---
c/o sudden onset of indigestion pain.
--- NOTE | 2024-05-13 16:25 | ED.GENADULT ---
HPI - General Adult General Chief complaint: Recheck/Abnormal Lab/Rx <Cliff HEMANTH LoredoN - Last Filed: 05/13/24 16:27> Stated complaint: bbb and HTN <Cliff Loredo APRN - Last Filed: 05/13/24 16:27> Time Seen by Provider: 05/13/24 18:59 <Cliff Loredo APRN - Last Filed: 05/13/24 16:27> 78-year-old female presents from [facility] after patient had dizziness x1 week. Patient had EKG performed at urgent care which showed a new onset of left bundle jonnie block. Patient has a history of AFib and states she sees a pool cleaner at [facility]. Patient denies any other symptoms GENERAL: Well-appearing, well-nourished, and in no acute distress. HEAD: Normocephalic, atraumatic. EYES: PERRLA and EOMI. ENT: Nares clear, no rhinorrhea or epistaxis. Mucous membranes moist. NECK: Supple. CHEST: Clear to auscultation. No respiratory distress. HEART: Regular rate and rhythm. No murmur heard. Normal peripheral pulses. ABDOMEN: Soft, nontender, nondistended, normal active bowel sounds. EXTREMITIES: Normal range of motion. No edema. SKIN: Warm, dry, no rash. NEURO: No focal deficits. Alert and oriented x3. PSYCH: Normal mood and affect. <Cliff OLYA Loredo - Last Filed: 05/13/24 16:27> 78-year-old female presents from [facility] after patient had dizziness x1 week. Patient had EKG performed at urgent care which showed a new onset of left bundle jonnie block. Patient has a history of AFib and states she sees a pool cleaner at [facility]. Patient denies any other symptoms GENERAL: Well-appearing, well-nourished, and in no acute distress. HEAD: Normocephalic, atraumatic. EYES: PERRLA and EOMI. ENT: Nares clear, no rhinorrhea or epistaxis. Mucous membranes moist. NECK: Supple. CHEST: Clear to auscultation. No respiratory distress. HEART: Regular rate and rhythm. No murmur heard. Normal peripheral pulses. ABDOMEN: Soft, nontender, nondistended, normal active bowel sounds. EXTREMITIES: Normal range of motion. No edema. SKIN: Warm, dry, no rash. NEURO: No focal deficits. Alert and oriented x3. PSYCH: Normal mood and affect. Agree with triage assessment. Patient states that the dizziness is a head spinning sensation and admits that it is triggered by head movement. Patient does have known sinus disease and saw Dr. Jones in the past who recommended sinus surgery given her extensive sinus disease, however, patient refuses surgery. <Yulissa Parrish MD - Last Filed: 05/13/24 23:08> Related Data Home medications: Home Medications Medication Instructions Recorded Confirmed flecainide 50 mg tablet 50 mg PO Q12H 03/10/20 05/13/24 azelastine 137 mcg (0.1 %) nasal 137 mcg intranasal Q12H 08/28/22 04/09/24 spray budesonide-formoterol HFA 160 2 puff inhalation BID 03/05/24 05/13/24 mcg-4.5 mcg/actuation aerosol inhaler <Cliff Loredo APRN - Last Filed: 05/13/24 16:27> Allergies/adverse reactions: Allergies Allergy/AdvReac Type Severity Reaction Status Date / Time salmeterol AdvReac Severe laryngitis Verified 05/13/24 14:01 [From Jeannette Fraser] <Cliff Loredo APRN - Last Filed: 05/13/24 16:27> Review of Systems Review of Systems: All systems are reviewed and are negative unless stated otherwise in the HPI. <Yulissa Parrish MD - Last Filed: 05/13/24 23:08> PMFSH Past Medical History Medical History: Medical History Asthma Bradycardia Chronic sinusitis Cough COVID-19 COVID-19 Crohn disease Degenerative arthritis of left shoulder region Foot sprain Otitis media with effusion Rhinitis Seborrheic keratoses Tendonitis of left rotator cuff Tenosynovitis of thumb Thyroid disease Upper respiratory infection Xerosis of skin <Cliff Loredo APRN - Last Filed: 05/13/24 16:27> Surgical History Surgical History: Surgical History (Reviewed 05/13/24 @ 19:34 by Allen
[2024-05-13 16:35] LABS: Basophils Absolute Auto 0.1 K/mm3 (0.0-0.1); Basophils Percent Auto 0.9 % (0.2-1.2); Eosinophils Absolute Auto 0.2 K/mm3 (0-0.3); Eosinophils Percent Auto 1.9 % (0-4.4); Hematocrit 44.1 % (37.0-47.0); Hemoglobin 14.6 g/dL (12.0-15.0); Immature Granulocyte Absolute 0.03 K/mm3 (0.00-0.031); Immature Granulocyte Percent A 0.3 % (0-0.5); Lymphocytes Absolute Auto 2.41 K/mm3 (0.9-3.2); Lymphocytes Percent Auto 25.4 % (18.3-44.2); Mean Corpuscular HGB Conc 33.1 g/dl (32-36); Mean Corpuscular Hemoglobin 28.4 pg (26-34); Mean Corpuscular Volume 85.8 fl (80-100); Monocytes Absolute Auto 0.8 K/mm3 (0.1-0.6); Neutrophils Percent Auto 63.5 % (45.5-73.1); Platelet Count Result 309 k/mm3 (150-375); Red Blood Count 5.14 M/mm3 (4.2-5.4); Red Cell Distribution Width 13.8 % (11.5-14.5); White Blood Count 9.5 K/mm3 (4.5-10.0)
[2024-05-13 16:44] LABS: INR 1.1; Prothrombin Time 14.4 Seconds (11.1-14.7)
[2024-05-13 16:45] LABS: Partial Thromboplastin Time 24.4 Seconds (22.3-36.8)
[2024-05-13 16:48] LABS: Alanine Aminotransferase 15 U/L (6-35); Albumin Level 4.5 g/dL (3.5-5.1); Alkaline Phosphatase 69 U/L (38-126); Anion Gap 9 mmol/L (4-12); Aspartate Amino Transferase 27 U/L (14-36); Bilirubin,Total 0.4 mg/dL (0.2-1.3); Blood Urea Nitrogen 21 mg/dL (7-17); Calcium 10.5 mg/dL (8.4-10.2); Carbon Dioxide 25 mmol/L (22-30); Chloride 105 mmol/L (98-107); Estimated CRCL calculation 44 ml/min; Estimated Glomerular Filt Rate 60; Glucose 90 mg/dL (65-110); Potassium 3.6 mmol/L (3.4-5.0); Sodium 139 mmol/L (137-145)
[2024-05-13 16:57] LABS: NT Pro B Type Natriuretic Pept 539 pg/mL (19.9-100)
[2024-05-13 17:00] LABS: Troponin I < 0.012 ng/mL (0.000-0.034)
== END 2024-05-13 20:28 | disposition home or self-care (01) ==
PROVIDERS: Nurse Practitioner Family; Emergency Provider Emergency Medicine; PCP Internal Medicine
DX: H81.10 Benign paroxysmal vertigo, unspecified ear (principal); I48.91 Unspecified atrial fibrillation; J32.9 Chronic sinusitis, unspecified; K50.90 Crohn's disease, unspecified, without complications; E07.9 Disorder of thyroid, unspecified; Z86.16 Personal history of COVID-19; Z90.710 Acquired absence of both cervix and uterus; Z87.891 Personal history of nicotine dependence; Z79.899 Other long term (current) drug therapy; I44.7 Left bundle-branch block, unspecified
CPT/HCPCS: 36415; 70450; 71046; 80053; 83735; 83880; 84443; 84484; 85025; 85610; 85730; 93005; 99284

== ENCOUNTER 2024-06-15 10:08 | Outpatient (CLI) | payer OTHER, SELFPAY ==
--- NOTE | ~2024-06-15 | CT_ITS ---
EXAMINATION: CT abdomen pelvis wo con DATE: 06/15/2024 10:23 INDICATION: Parastomal hernia without obstruction. TECHNIQUE: Computed tomography (CT) of the abdomen and pelvis was performed without intravenous contr ast. Automated exposure control and iterative reconstruction technique were employed. The dose-length product was 677.78 mGy-cm. COMPARISON: CT abdomen and pelvis 05/06/14 FINDINGS: The visualized portions of the lung bases and inferior mild atelectasis. There is mild bron chiectasis bilaterally. No pleural effusion. There is normal. No pericardial effusion. The liver, gal lbladder, and spleen are normal. There is a calcification in the pancreas, consistent with chronic pa ncreatitis. The adrenal glands and left kidney are normal. There are 3.5 cm the right kidney. There i s a 3 mm stone in right kidney. There are changes of colectomy. There is an end ileostomy in left abd omen. There are no pathologically enlarged lymph nodes. There is no free intraperitoneal fluid. There is severe thoracic and lumbar spondylosis. Thoracolumbar levoscoliosis and lumbar dextroscoliosis ar e noted. IMPRESSION: 1. No parastomal hernia. Reviewed, dictated and finalized at location A. [employer] IMPRESSION: 1. No parastomal hernia.
== END 2024-06-15 10:09 | disposition home or self-care (01) ==
LOC: MICIMG 10:10
PROVIDERS: PCP Internal Medicine; Visit Provider Surgery
DX: K43.5 Parastomal hernia without obstruction or gangrene (principal)
CPT/HCPCS: 74176

== ENCOUNTER 2024-09-15 10:56 | Outpatient (NON) | payer OTHER, SELFPAY ==
--- OUTSIDE RECORDS SUMMARY | 2024-09-15 11:09 | XMS_ITS | Patient Health Record ---
Author Organization [facility] Address [address] [place] [address] Care Team Providers Care Tow Picker Name Role Phone Brad Larkin Primary Care Provider Unavailab le Angelita Bello Unavailable [phone] Gita Vines Unavailable Unavailable [facility], Provider Unavailable Unavailab le Allergies Allergen (clinical drug ingredient) Drug/Non Drug Allergy documented on EMR Reaction Allergy Type Onset Date Status cefdinir Cefdinir rash Drug Allergy Active Results Component Value Reference Range Notes Spirometry Reviewed date: Interpretation:Normal Performing Lab: Notes/Report: Normal SpiroPreBronchodilator_FVC 2.98 SpiroPostBronchodilator_FEF25_75 0 SpiroPreBronchodilator_FEF25_75 2.71 SpiroPreBronchodilator_FEV1 2.47 SpiroPrecentPredictionPost_FEF25_75 0 SpiroPrecentPredictionPost_FEV1 0 SpiroPrecentPredictionPost_FEV1_OVER_FVC 0 SpiroPrecentPredictionPost_FVC 0 SpiroPrecentPredictionPre_FEF25_75 167.3 SpiroPrecentPredictionPre_FEV1 112.3 SpiroPrecentPredictionPre_FEV1_OVER_FVC 115.3 SpiroPrecentPredictionPre_FVC 98 SpiroPredicted_FEF25_75 1.62 SpiroPreBronchodilator_FEV1_OVER_FVC 83.03 SpiroPreBronchodilator_PEF 3.57 SpiroPostBronchodilator_FVC 0 SpiroPostBronchodilator_FEV1 0 SpiroPostBronchodilator_FEV1_OVER_FVC 0 SpiroPostBronchodilator_PEF 0 SpiroPredicted_FVC 3.04 SpiroPredicted_FEV1 2.2 SpiroPredicted_FEV1_OVER_FVC 72.04 SpiroPredicted_PEF 5.6 Reason For Referral Referring Provider First Name Brad Referring Provider Last Name Chaya Referring Provider Speciality Internal M edicine Referred Organization [facility] Referred Provider Angelita Bello Referred Address [address],[place], [place],[address], Referral Priority Routine Medications Medication SIG (Take, Route, Frequency, Duration) Notes Start Date End Date Status ALBUTEROL (EQV-PROVENTIL HFA) 90 mcg/inh 2 puff(s) inhaled Q4-6 hours, PRN and per the asthma action plan for 30 day(s) Active FLUTICASONE NASAL 50 mcg/inh 2 spray(s) in each nostril Qday for 30 day(s) Not-Taking Doxycycline Hyclate 100 MG 1 cap(s) orally 2 times a day for 10 day(s) 06/28/2022 Not-Taking NASAL WASHES N/A as directed intranasally as needed for 30 Active Fluticasone Propionate 50 MCG/ACT 2 spray(s) in each nostril Qday for 30 day(s) Active Azelastine HCl 137 MCG/SPRAY 2 puffs (1 spray in each nostril) Nasally Twice a day for 30 day(s) 09/08/2024 Active Montelukast Sodium 10 MG 1 tab(s) orally once a day for 30 day(s) Active dilTIAZem HCl ER 120 MG 1 cap(s) orally every 12 hours for 30 day(s) Active Synthroid 112 MCG 1 tab(s) orally once a day for 30 day(s) Active Xarelto 2.5 MG 1 tablet with food Orally Twice a day Active Azelastine HCl 137 MCG/SPRAY 2 spray(s) intranasally 2 times a day for 30 day(s) Not-Taking Amoxicillin-Pot Clavulanate 875-125 MG 1 tab(s) orally every 12 hours for 10 days 11/06/2023 Active Probiotic 1-250 BILLION-MG as directed Orally Active Levocetirizine Dihydrochloride 5 MG 1 tab(s) orally once a day (in the evening) for 30 day(s) Not-Taking Budesonide-Formotero l Fumarate 160-4.5 MCG/ACT Inhalation for 30 Days Active Flecainide Acetate 50 MG as directed Orally Active Clarithromycin 500 MG 1 tab(s) orally every 12 hours for 10 day(s) 06/27/2022 Not-Taking Folbee Plus CZ VITAMIN B COMPLEX WITH C, FOLIC ACID AND ZINC 1 TAB(S) ORALLY ONCE A DAY 3x a week *Please review and pick correct strength-formula tion from SoundFit options. If intended option is not shown, discontinue and re-order from Quick Search* Active AZELASTINE HYDROCHLORIDE NASAL 137 mcg/inh 2 spray(s) intranasally 2 times a day for 30 day(s) Not-Taking Trelegy Ellipta 200 mcg-62.5 mcg-25 mcg/inh 1 puff(s) inhaled once a day for 30 days Not-Taking EPINEPHRINE AUTO-INJECTOR 0.3 mg as directed intramuscularly once for 1 day Not-Taking Vitamin D3 *Please review and pick correct strength-formula tion from SoundFit options. If intended option is not shown, discontinue and re-order from Quick Search* Not-Taking ALPRAZolam 0.25 MG 1 tab(s) orally every 8 hours Not-Taking Budesonide-Formotero l Fumarate 160-4.5 MCG/ACT 2 puffs Inhalation Twice a day for 90 days Active Ipratropium [place] 0.03 % 2 sprays in each nostril Nasally Twice a day for 30 days 09/08/2024 Active ZyrTEC Allergy 10 MG 1 tablet Orally Onc e a day Active Nystatin 685535 UNIT/ML 4 mL orally 4 times a day for 10 day(s) swish and spit Not-Taking Trelegy Ellipta 100/62.5/25 MCG 1 INHALATION PO QDAY for 30 DAY(S) *Please review and pick correct strength-formula tion from SoundFit options. If intended option is not shown, discontinue and re-order from Quick Search* Not-Taking Immunizations Vaccine Route Administration Date Status Comme nts Fluad Unknown 05/01/2021 Administered COVID-19 (Moderna) Unknown 09/06/2020 Administered COVID-19 (Moderna) Unknown 10/04/2020 Administered COVID-19 (Moderna) Unknown 06/13/2021 Administered Social History Tobacco Use: Social History Observation Description Date Details (start date - stop date) Former Smoker NA - NA Smoking Smart Form: Question Answer Notes Are you a: former smoker How long it has been since you last smoked? > 10 years Tobacco Control (Standard) Question Answer Notes Tobacco use: Former smoker Problems Problem Type SNOMED Code ICD Code Onset Dates Problem Status W/U Status Risk Notes Problem Chronic allergic conjunctivitis (41679723) Other chronic allergic conjunctivitis (H10.45) Active confirmed Problem Allergic rhinitis caused by pollen (disorder) (63982989) Allergic rhinitis due to pollen (J30.1) Active confirmed Problem Allergic rhinitis caused by animal hair and dander (957273672033322) Allergic rhinitis due to animal (cat) (dog) hair and dander (J30.81) Active confirmed Problem Allergic rhinitis (00520075) Other allergic rhinitis (J30.89) Active confirmed Problem Chronic pansinusitis (32593049) Chronic pansinusitis (J32.4) Active confirmed Problem Uncomplicated moderate persistent asthma (181311675) Moderate persistent asthma, uncomplicated (J45.40) Active confirmed Problem Dermatitis (802566214) Dermatitis, unspecified (L30.9) Active confirmed Problem Allergic rhinitis caused by pollen (disorder) (78925038) Allergic rhinitis due to pollen (J30.1) Active confirmed Problem Allergic rhinitis caused by animal hair and dander (756296122920506) Allergic rhinitis due to animal (cat) (dog) hair and dander (J30.81) Active confirmed Problem Allergic rhinitis (75362151) Other allergic rhinitis (J30.89) Active confirmed Problem Chronic allergic conjunctivitis (53080473) Other chronic allergic conjunctivitis (H10.45) Active confirmed Problem Allergy status t o other antibiotic agents (Z88.1) Active confirmed Vital Signs Blood pressure diastolic 80 mm Hg 09/08/2024 Oximetry 98 % 09/08/2024 Height 67 in 09/08/2024 Blood pressure systolic 150 mm Hg 09/08/2024 Weight 166 lbs 09/08/2024 BMI 26 kg/m2 09/08/2024 Encounters Encounter Location Date Provider Diagnosis [facility] [address] [place] [phone] 01/11/2024 Provider [facility] Moderate persistent asthma, uncomplicated J45.40 and Allergic rhinitis due to pollen J30.1 [facility] [address] [place] [phone] 09/19/2023 Angelita Bello Allergic rhinitis du e to pollen J30.1 ; Other allergic rhinitis J30.89 ; Allergic rhinitis due to animal (cat) (dog) hair and dander J30.81 and Other chronic allergic conjunctivitis H10.45 [facility] [address] [place] [phone] 10/17/2023 Angelita Bello Allergic rhinitis du e to pollen J30.1 ; Other allergic rhinitis J30.89 ; Allergic rhinitis due to animal (cat) (dog) hair and dander J30.81 and Other chronic allergic conjunctivitis H10.45 [facility] [address] [place] [phone] 11/06/2023 Angelita Bello Moderate persistent asthma, uncomplicated J45.40 ; Chronic pansinusitis J32.4 ; Allergy status to other antibiotic agents Z88.1 ; Allergic rhinitis due to pollen J30.1 ; Allergic rhinitis due to animal (cat) (dog) hair and dander J30.81 ; Other allergic rhinitis J30.89 and Other chronic allergic conjunctivitis H10.45 [facility] [address] [place] [phone] 11/27/2023 Angelita Bello Allergic rhinitis du e to pollen J30.1 ; Other allergic rhinitis J30.89 ; Allergic rhinitis due to animal (cat) (dog) hair and dander J30.81 and Other chronic allergic conjunctivitis H10.45 [facility] [address] [place] [phone] 12/03/2023 Angelita Bello Allergic rhinitis du e to pollen J30.1 ; Other allergic rhinitis J30.89 ; Allergic rhinitis due to animal (cat) (dog) hair and dander J30.81 and Other chronic allergic conjunctivitis H10.45 [facility] [address] [place] [phone] 12/10/2023 Angelita Bello Allergic rhinitis du e to pollen J30.1 ; Other allergic rhinitis J30.89 ; Allergic rhinitis due to animal (cat) (dog) hair and dander J30.81 and Other chronic allergic conjunctivitis H10.45 [facility] [address] [place] [phone] 01/15/2024 Angelita Bello Moderate persistent asthma, uncomplicated J45.40 ; Chronic pansinusitis J32.4 ; Allergy status to other antibiotic agents Z88.1 ; Allergic rhinitis due to pollen J30.1 ; Allergic rhinitis due to animal (cat) (dog) hair and dander J30.81 ; Other allergic rhinitis J30.89 and Other chronic allergic conjunctivitis H10.45 [facility] [address] [place] [phone] 02/18/2024 Angelita Bello Moderate persistent asthma, uncomplicated J45.40 ; Chronic pansinusitis J32.4 ; Allergy status to other antibiotic agents Z88.1 ; Allergic rhinitis due to pollen J30.1 ; Allergic rhinitis due to animal (cat) (dog) hair and dander J30.81 ; Other allergic rhinitis J30.89 and Other chronic allergic conjunctivitis H10.45 [facility] [address] [place] [phone] 04/28/2024 Angelita Bello Moderate persistent asthma, uncomplicated J45.40 ; Chronic pansinusitis J32.4 ; Allergy status to other antibiotic agents Z88.1 ; Allergic rhinitis due to pollen J30.1 ; Allergic rhinitis due to animal (cat) (dog) hair and dander J30.81 ; Other allergic rhinitis J30.89 and Other chronic allergic conjunctivitis H10.45 [facility] [address] [place] [phone] 09/08/2024 Angelita Bello Moderate persistent asthma, uncomplicated J45.40 ; Chronic pansinusitis J32.4 ; Allergy status to other antibiotic agents Z88.1 ; Allergic rhinitis due to pollen J30.1 ; Allergic rhinitis due to animal (cat) (dog) hair and dander J30.81 ; Other allergic rhinitis J30.89 and Other chronic allergic conjunctivitis H10.45 [facility] [address] [place] [phone] 11/04/2023 Angelita Eugenia [address] [phone] 01/15/2024 Angelita Eugenia [address] [phone] 01/23/2024 Angelita Eugeina [address] [phone] 02/18/2024 Angelita Eugenia [address] [phone] 04/06/2024 Angelita Eugenia Allergic rhinitis du e to pollen J30.[address] [phone] 04/29/2024 Angelita Eugenia Moderate persistent asthma, uncomplicated J45.[address] [address] 08/11/2024 Angelita Eugenia Moderate persistent asthma, uncomplicated J45.[address] [address] 09/09/2024 Angelita Eugenia [address] [phone] 03/09/2024 Angelita Eugenia Allergic rhinitis du e to pollen J30.1 Assessments Encounter Date Diagnosis (ICD Code) Assessment Notes Treatment Notes Treatment Clinical Notes Section Notes 09/19/2023 Allergic rhinitis due to pollen (ICD-10 - J30.1) 10/17/2023 Allergic rhinitis due to pollen (ICD-10 - J30.1) 11/06/2023 Chronic pansinusitis (ICD-10 - J32.4) CT sinus 05-18-22 showed moderate mucosal thickening of the maxillary, ethmoid, sphenoid and frontal sinuses. Sinus surgery was performed . Start antibiotics due to recent nasal symptoms. 11/06/2023 Moderate persistent asthma, uncomplicated (ICD-10 - J45.40) Persistent asthma which appears under good control with Trelegy. Spirometry at last check is normal. ACT 22. Continue Trelegy and prn albuterol 11/27/2023 Allergic rhinitis due to pollen (ICD-10 - J30.1) 12/03/2023 Allergic rhinitis due to pollen (ICD-10 - J30.1) 12/10/2023 Allergic rhinitis due to pollen (ICD-10 - J30.1) 01/11/2024 Moderate persistent asthma, uncomplicated (ICD-10 - J45.40) 01/15/2024 Chronic pansinusitis (ICD-10 - J32.4) CT sinus 05-18-22 showed moderate mucosal thickening of the maxillary, ethmoid, sphenoid and frontal sinuses. Sinus surgery was performed . Start antibiotics due to current nasal symptoms. Immunodeficiency evaluation ordered. She reports receiving Pneumovax in 2022. 01/15/2024 Moderate persistent asthma, uncomplicated (ICD-10 - J45.40) Persistent asthma which appears under good control with Trelegy. Spirometry at last check is normal. ACT 21. Continue Trelegy and prn albuterol 02/18/2024 Chronic pansinusitis (ICD-10 - J32.4) CT sinus 05-18-22 showed moderate mucosal thickening of the maxillary, ethmoid, sphenoid and frontal sinuses. Sinus surgery was performed . She received Zpack -2023 and Amoxicillin . We discussed a longer course of antibiotics but at this time she would like to wait. 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 Rest of labs are pending and request sent to [facility]. 02/18/2024 Moderate persistent asthma, uncomplicated (ICD-10 - J45.40) Persistent asthma which appears under good control with Trelegy. Spirometry today is normal. Due to recurrent issues with thrush, switch to Symbicort and continue prn albuterol. 03/09/2024 Allergic rhinitis due to pollen (ICD-10 - J30.1) 04/06/2024 Allergic rhinitis due to pollen (ICD-10 - J30.1) 04/28/2024 Chronic pansinusitis (ICD-10 - J32.4) CT sinus 05-18-22 showed moderate mucosal thickening of the maxillary, ethmoid, sphenoid and frontal sinuses. Sinus surgery was performed . 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 Normal tetanus and HIB. S. Pneumo +13.23 serotypes. She is going to receive Pneumovax at [facility]. Start Zpack for current symptoms. 04/28/2024 Moderate persistent asthma, uncomplicated (ICD-10 - J45.40) Persistent asthma which appears under good control with Symbicort. Spirometry at last check is normal. Due to recurrent issues with thrush, switched to Symbicort and continue prn albuterol. 04/29/2024 Moderate persistent asthma, uncomplicated (ICD-10 - J45.40) 08/11/2024 Moderate persistent asthma, uncomplicated (ICD-10 - J45.40) 09/08/2024 Chronic pansinusitis (ICD-10 - J32.4) CT sinus 05-18-22 showed moderate mucosal thickening of the maxillary, ethmoid, sphenoid and frontal sinuses. Sinus surgery was performed . 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 Normal tetanus and HIB. S. Pneumo +13.23 serotypes. She received Prevnar and plan to recheck titers today. Start Augmetin for current nasal symptoms. 09/08/2024 Moderate persistent asthma, uncomplicated (ICD-10 - J45.40) Persistent asthma which appears under good control with Symbicort. Spirometry at last check is normal. Due to recurrent issues with thrush, switched to Symbicort and continue prn albuterol. Spirometry held today due to sinusitis 09/08/2024 Allergy status to other antibiotic agents (ICD-10 - Z88.1) History of taking cefdinir and developing a rash. Recommend continued avoidance for now. Tolerates amoxicillin 04/28/2024 Allergy status to other antibiotic agents (ICD-10 - Z88.1) History of taking cefdinir and developing a rash. Recommend continued avoidance for now. Tolerates amoxicillin 01/15/2024 Allergy status to other antibiotic agents (ICD-10 - Z88.1) History of taking cefdinir and developing a rash. Recommend continued avoidance for now. Tolerates amoxicillin 02/18/2024 Allergy status to other antibiotic agents (ICD-10 - Z88.1) History of taking cefdinir and developing a rash. Recommend continued avoidance for now. Tolerates amoxicillin 12/10/2023 Other allergic rhinitis (ICD-10 - J30.89) 12/03/2023 Other allergic rhinitis (ICD-10 - J30.89) 11/27/2023 Other allergic rhinitis (ICD-10 - J30.89) 11/06/2023 Allergy status to other antibiotic agents (ICD-10 - Z88.1) History of taking cefdinir and developing a rash. Recommend continued avoidance for now. Tolerates amoxicillin 10/17/2023 Other allergic rhinitis (ICD-10 - J30.89) 09/19/2023 Other allergic rhinitis (ICD-10 - J30.89) 10/17/2023 Allergic rhinitis due to animal (cat) (dog) hair and dander (ICD-10 - J30.81) 09/19/2023 Allergic rhinitis due to animal (cat) (dog) hair and dander (ICD-10 - J30.81) 11/06/2023 Allergic rhinitis due to pollen (ICD-10 - J30.1) Fallon clearly suffers from atopic disease based upon our skin testing. She is tolerating SCIT without large local or systemic symptoms. She was instructed to carry her epinephrine autoinjector for 2 hours after leaving the office. Restart above medications as needed for spring season 11/27/2023 Allergic rhinitis due to animal (cat) (dog) hair and dander (ICD-10 - J30.81) 12/03/2023 Allergic rhinitis due to animal (cat) (dog) hair and dander (ICD-10 - J30.81) 12/10/2023 Allergic rhinitis due to animal (cat) (dog) hair and dander (ICD-10 - J30.81) 01/11/2024 Allergic rhinitis due to pollen (ICD-10 - J30.1) 01/15/2024 Allergic rhinitis due to pollen (ICD-10 - J30.1) Fallon clearly suffers from atopic disease based upon our skin testing. She is tolerating SCIT without large local or systemic symptoms. She was instructed to carry her epinephrine autoinjector for 2 hours after leaving the office. Restart above medications as needed for spring season 02/18/2024 Allergic rhinitis due to pollen (ICD-10 - J30.1) aFllon clearly suffers from atopic disease based upon our skin testing. She is tolerating SCIT without large local or systemic symptoms. She was instructed to carry her epinephrine autoinjector for 2 hours after leaving the office. Increase SCIT to q2 weeks during peak seasons. 04/28/2024 Allergic rhinitis due to pollen (ICD-10 - J30.1) Fallon clearly suffers from atopic disease based upon our skin testing. No improvement with immunotherapy and has discontinued. 09/08/2024 Allergic rhinitis due to pollen (ICD-10 - J30.1) Fallon clearly suffers from atopic disease based upon our skin testing. No improvement with immunotherapy and has discontinued. 09/08/2024 Allergic rhinitis due to animal (cat) (dog) hair and dander (ICD-10 - J30.81) 04/28/2024 Allergic rhinitis due to animal (cat) (dog) hair and dander (ICD-10 - J30.81) 02/18/2024 Allergic rhinitis due to animal (cat) (dog) hair and dander (ICD-10 - J30.81) Follow allergen avoidance, meds and continue SCIT as an adjunctive treatment to current regimen 01/15/2024 Allergic rhinitis due to animal (cat) (dog) hair and dander (ICD-10 - J30.81) Follow allergen avoidance, meds and continue SCIT as an adjunctive treatment to current regimen 12/10/2023 Other chronic allergic conjunctivitis (ICD-10 - H10.45) 12/03/2023 Other chronic allergic conjunctivitis (ICD-10 - H10.45) 11/27/2023 Other chronic allergic conjunctivitis (ICD-10 - H10.45) 11/06/2023 Allergic rhinitis due to animal (cat) (dog) hair and dander (ICD-10 - J30.81) Follow allergen avoidance, meds and continue SCIT as an adjunctive treatment to current regimen 09/19/2023 Other chronic allergic conjunctivitis (ICD-10 - H10.45) 10/17/2023 Other chronic allergic conjunctivitis (ICD-10 - H10.45) 11/06/2023 Other allergic rhinitis (ICD-10 - J30.89) 01/15/2024 Other allergic rhinitis (ICD-10 - J30.89) 02/18/2024 Other allergic rhinitis (ICD-10 - J30.89) 04/28/2024 Other allergic rhinitis (ICD-10 - J30.89) 09/08/2024 Other allergic rhinitis (ICD-10 - J30.89) 09/08/2024 Other chronic allergic conjunctivitis (ICD-10 - H10.45) Given ocular signs and symptoms I encouraged allergy avoidance measures and meds as above. If symptoms persist, consider adding additional medications including intraocular antihistamine/mast cell stabilizer, PRN 04/28/2024 Other chronic allergic conjunctivitis (ICD-10 - H10.45) Given ocular signs and symptoms I encouraged allergy avoidance measures and meds as above. If symptoms persist, consider adding additional medications including intraocular antihistamine/mast cell stabilizer, PRN 02/18/2024 Other chronic allergic conjunctivitis (ICD-10 - H10.45) Given ocular signs and symptoms I encouraged allergy avoidance measures and meds as above. If symptoms persist, consider adding additional medications including intraocular antihistamine/mast cell stabilizer, PRN 01/15/2024 Other chronic allergic conjunctivitis (ICD-10 - H10.45) Given ocular signs and symptoms I encouraged allergy avoidance measures and meds as above. If symptoms persist, consider adding additional medications including intraocular antihistamine/mast cell stabilizer, PRN 11/06/2023 Other chronic allergic conjunctivitis (ICD-10 - H10.45) Given ocular signs and symptoms I encouraged allergy avoidance measures and meds as above. If symptoms persist, consider adding additional medications including intraocular antihistamine/mast cell stabilizer, PRN 11/06/2023 Other 01/15/2024 Other 02/18/2024 Other 04/28/2024 Other 09/08/2024 Other Plan Of Treatment Pending Test Test Name Order Date Spirometry 09/08/2024 STREPTOCOCCUS PNEUMONIAE IGG AB (23 SERO TYPES) 09/08/2024 TETANUS ANTITOXOID ANTIBODY (EIA) 2023 CBC (INCLUDES DIFF/PLT) 01/15/2024 HAEMOPHILUS INFLUENZAE B ANTIBODY, IGG 0 01/15/2024 IMMUNOGLOBULINS A/E/G/M,SERUM 01/15/2024 S. PNEUMONIAE IGG AB, 23 SEROTYPES, S Next Appt Details Provider Name:Angelita leary, 01/19/2025 10:00:00 AM, [address] [facility], [address], [place], [address], Insurance Providers Payer Name Payer Address Payer Phone Subscriber Number Group Number Insured Name Patient Relationship to Insured Coverage Start Date Coverage End Date [employer] [address] [address] [place] [phone] [id number] Fallon Agarwal Self - patient is the insured 4 Medical (General) History Medical History History ICD Code Atrial Fibrillation Moderate persistent asthma, uncomplicate d J45.40 Ulcerative Colitis Surgical History Surgery Date(Month/Year) Hysterectomy 1983 Sinus Surgery 2022 iliostomy for ulcerative colitis 1997
--- OUTSIDE RECORDS SUMMARY | 2024-09-15 11:09 | XMS_ITS | Clinical Summary ---
Author Organization [facility] Address [address] [place] [address] Care Team Providers Care Assistant Health Educator Name Role Phone Unavailable Primary Care Provider Unavailabl e Social History Tobacco Use Types Packs/Day Years Used Date Smoking Tobacco: Never Assessed Comments Unknown Sex and Gender Information Value Date Recorded Sex Assigned at Not on file Legal Sex Female 11:24 AM CDT Gender Identity Not on file Sexual Orientation Not on file Plan of Treatment Health Maintenance Due Date Last Done Comments DTaP, Tdap and Td Vaccines ( 1 - Tdap) 1962 Zoster Vaccines (1 of 2) 1993 Annual Medicare Wellness Visit 2008 Dexa Scan (General) 2008 Pneumococcal Vaccine: 65+ Ye ars (1 of 1 - PCV) 2008 RSV Immunization or 60+ Years (1 - 1-dose 75+ series) 2018 COVID-19 Vaccine ( - 2023-2 5 season) 2024 Influenza Adult (#1) 2024 Meningococcal B Vaccine Aged Out No l onger eligible based on patient's age to complete this topic Meningococcal Vaccine Aged Out No tiffanie cliff eligible based on patient's age to complete this topic RSV Immunizations Under 20 Months Aged Out No longer eligible based on patient's age to complete this topic Insurance [employer]
== END 2024-09-15 10:57 | disposition home or self-care (01) ==
LOC: ANHGOSHLAB 10:57
PROVIDERS: Visit Provider Clinical Nurse Specialist
DX: R39.15 Urgency of urination (principal)
CPT/HCPCS: 87086

== ENCOUNTER 2024-09-15 11:33 | Outpatient (CLI) | payer OTHER, SELFPAY ==
--- OUTSIDE RECORDS SUMMARY | 2024-09-15 11:36 | XMS_ITS | Referral Summary ---
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; LBBB (left bundle branch block) from Last 3 Months Allergies No known active allergies Medications montelukast (SINGULAIR) 10 mg tablet take 1 tablet by oral route every day in the evening 0 0 4 Active Additional Information Patient taking differently:10 mgoral Nightly, Reported on 05/08/2024 dilTIAZem XR (dilTIAZem CD) 240 mg 24 hr capsule take 1 capsule (240MG) by oral route every day 0 2 Active Additional Information Patient taking differently: 180 mg oral Nightly, Patient takes 180 mg daily, Informant: Self, Reported on 09/06/2022 levothyroxine (SYNTHROID, LEVOTHROID) 137 mcg tablet Take 112 mcg by mouth daily Patient take 112 mcg daily Active calcium acetate (PHOSLO) 667 mg tablet Take 3 tablets (2,001 mg total) by mouth daily Active flecainide (TAMBOCOR) 50 mg tablet TAKE 1 TABLET BY MOUTH TWICE A DAY 180 tablet 3 4 Active cholecalciferol (VITAMIN D-3) 50,000 unit capsule TAKE 1 CAPSULE BY MOUTH WEEKLY 4 Active escitalopram (LEXAPRO) 10 mg tablet Take 1 tablet (10 mg total) by mouth daily 4 Active rivaroxaban (XARELTO) 20 mg tabletIndication s:atrial fibrillation Take 1 tablet (20 mg total) by mouth daily with dinner 30 tablet 11 4 05/18/20 25 Active Active Problems Problem Noted Date Diagnosed Date 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 We will continue the patient on the same dose and schedule. As long as the patient continues on this medication, an ECG should be performed at least every 6 months to monitor for toxicity. Dizziness and giddiness 02/01/2020 Ventricular ectopy 09/28/2019 Assessment & Plan (09/04/2024 11:21 AM USED CAR MANAGER): Symptomatic ventricular ectopy, suppressed with flecainide. 12-lead ECG today does not demonstrate any changes that would prohibit continued use of flecainide. We will continue the patient on the same dose and schedule. As long as the patient continues on this medication, an ECG should be performed at least every 6 months to monitor for toxicity. Assessment & Plan (09/06/2023 1:55 PM USED CAR MANAGER): Presently doing well with low-dose flecainide. 12-lead ECG today does not demonstrate any changes that would prohibit continued use of flecainide. We will continue the patient on the same dose and schedule. As long as the patient continues on this medication, an ECG should be performed at least every 6 months to monitor for toxicity. Assessment & Plan (09/19/2022 2:47 PM USED CAR MANAGER): Minimally symptomatic, well-suppressed with flecainide. 12-lead ECG today does not demonstrate any changes that would prohibit continued use of flecainide. We will continue the patient on the same dose and schedule. As long as the patient continues on this medication, an ECG should be performed at least every 6 months to monitor for toxicity. Assessment & Plan (09/08/2021 4:00 PM USED CAR MANAGER): Symptomatic ventricular ectopy, doing well flecainide. 12-lead ECG today does not demonstrate any changes that would prohibit continued use of flecainide. We will continue the patient on the same dose and schedule. As long as the patient continues on this medication, an ECG should be performed at least every 6 months to monitor for toxicity. Assessment & Plan (09/09/2020 2:01 PM USED CAR MANAGER): Symptomatic ventricular ectopy, suppressed by ongoing low-dose flecainide therapy. The patient would like to continue on this medication. Assessment & Plan (03/12/2020 12:13 PM CDT): Symptomatic ventricular ectopy, idiopathic. The patient has experienced a satisfactory response to low-dose flecainide therapy. She would like to continue on this medication. 12-lead ECG today does not demonstrate any changes that would prohibit continued use of flecainide. We will continue the patient on the same dose and schedule. As long as the patient continues on this medication, an ECG should be performed at least every 6 months to monitor for toxicity. Assessment & Plan (02/01/2020 5:01 PM CDT): The patient has frequent ventricular ectopy, with her recent ECG showing periods of bigeminy and trigeminy. This would account for her finding a slow heart rate at times. We discussed options for management. The patient would like to attempt suppression with pharmacologic therapy before considering ablation, though she knows both of these are an option. She should be a low risk for initiation of flecainide as an outpatient. I recommended that the initiate therapy with low dose flecainide (50 mg twice daily). After 2- 3 doses, we will obtain an ECG, in order to ensure that the patient is tolerating this medication without excessive QRS widening. If the medication is tolerated, we will likely advance the dose (to a target of 100 mg) and repeat an ECG again after several doses. If this is unsuccessful in reducing the patient's symptoms, catheter ablation will be considered. Assessment & Plan (09/28/2019 12:50 PM USED CAR MANAGER): Outflow tract ventricular ectopy is completely asymptomatic. No additional therapy is necessary. The patient will follow-up with me in 6 months for an office visit and twelve- lead ECG. 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 Liver function tests and thyroid function tests should be performed at least every 6 months, an assessment of pulmonary function will be needed yearly. We will obtain baseline labs. Anticoagulation management encounter 07/14/2017 Assessment & Plan (09/19/2022 2:47 PM USED CAR MANAGER): She is off anticoagulation per personal preference. Assessment & Plan (12/10/2017 4:16 PM CDT): The patient wishes to discontinue anticoagulation. I recommended that she wear an event recorder for a week. This did not demonstrate the presence of subclinical atrial arrhythmia, she can stop rivaroxaban. The patient will follow-up with me in 6 months for an office visit and twelve- lead ECG. Assessment & Plan (10/24/2017 1:53 PM CDT): I recommended that the patient remain anticoagulated through at least 3-6 months post ablation. Assessment & Plan (07/14/2017 12:34 PM USED CAR MANAGER): The patient has a [id number] score of 3 (annualized risk of stroke 3.2 %). I have therefore recommended that she remain anticoagulated. The patient will follow-up with me in 6 months for an office visit and twelve- lead ECG. LBBB (left bundle branch block) 01/11/2017 Assessment & Plan (09/04/2024 11:22 AM USED CAR MANAGER): Chronic left bundle branch block, not associated with syncope or other symptoms compatible with bradycardia. No symptoms of congestive heart failure. Assessment & Plan (09/19/2022 2:47 PM USED CAR MANAGER): Asymptomatic left bundle branch block, of overall indeterminate clinical significance. No LV dysfunction or symptoms of bradycardia. Her left bundle branch block preceded initiation of flecainide, and has not changed in response to this medication. Assessment & Plan (09/08/2021 4:01 PM USED CAR MANAGER): Left bundle branch block, without associated bradycardia. We will continue to follow clinically. The patient will follow-up with me in 12 months for an office visit and twelve- lead ECG. Assessment & Plan (09/09/2020 2:02 PM USED CAR MANAGER): Of indeterminate clinical significance. There has been no change in her QRS duration since initiation of flecainide. The patient will follow-up with me in 12 months for an office visit and twelve- lead ECG. Assessment & Plan (03/12/2020 12:14 PM CDT): Chronic left bundle branch block, with indeterminate clinical significance. Her complex today is actually narrow or than a previous ECGs have demonstrated. Assessment & Plan (02/01/2020 5:02 PM CDT): Her longstanding left bundle branch block is of indeterminate clinical significance. On recent ECGs, it measures 130-140 msec. Assessment & Plan (09/28/2019 12:45 PM USED CAR MANAGER): The patient reported an episode of near-syncope. Given her long history of left bundle branch block, I asked the patient to wear an event recorder to exclude the possibility of intermittent complete heart block. She states that she was intolerant of monitoring in the past, but does not wish to consider an implanted loop recorder. Given no additional options, we will continue to manage expectantly. This was truly her 1st complaint of near-syncope, and it is possible that it was non- arrhythmogenic. However, if the patient does experience additional symptoms, we would be compelled to investigate further. I will plan on seeing her back in 6 months. Assessment & Plan (09/14/2018 10:44 AM USED CAR MANAGER): She has longstanding left bundle branch block of indeterminate clinical significance. We will continue to follow her with serial ECGs. The patient knows to report any symptoms compatible with progressive bradycardia. The patient will follow-up with me in 12 months for an office visit and twelve- lead ECG. Assessment & Plan (03/11/2018 2:31 PM CDT): Asymptomatic and of unknown clinical significance. Assessment & Plan (12/10/2017 4:21 PM CDT): This is of unknown clinical significance and is stable. The patient has normal LV function. Assessment & Plan (10/24/2017 1:54 PM CDT): The clinical significance of this resting ECG finding is indeterminate. The patient has normal LV function. The patient will follow-up with me in 2 months for an office visit and twelve- lead ECG. Assessment & Plan (07/14/2017 12:35 PM USED CAR MANAGER): The patient has left bundle branch block pattern is asymptomatic and not associated with LV dysfunction. Assessment & Plan (06/10/2017 7:11 PM USED CAR MANAGER): Chronic. Previously assessed and found to be nonischemic. Assessment & Plan (01/11/2017 1:55 PM CDT): Longstanding and previously not related to ischemia. Precordial pain 01/11/2017 Assessment & Plan (01/11/2017 1:53 PM CDT): Chest burning associated with rapid atrial fibrillation. She has not had this before. She does have risk factors for coronary artery disease. I have recommended a pharmacologic stress test to evaluate this (she has a chronic LBBB). Hernia of anterior abdominal wall 06/09/2014 Paroxysmal atrial fibrillation (CMS/HCC) 012 Overview (11/03/2016): Atrial fibrillation Assessment & Plan (09/04/2024 11:21 AM USED CAR MANAGER): The patient is 7 years status post ablation for atrial fibrillation, doing well. Maintaining sinus rhythm with flecainide, though this medication was initiated for ventricular ectopy, not recurrent atrial arrhythmia. No changes to management today The patient has a [id number] score of 4. I have therefore recommended continued anticoagulation for thromboprophylaxis. The patient will follow-up with me in 12 months for an office visit and twelve- lead ECG. Assessment & Plan (09/06/2023 1:56 PM USED CAR MANAGER): The patient is 6 years status post ablation for atrial fibrillation, doing well. Maintaining sinus rhythm. No changes to management at present. She is on flecainide for ventricular ectopy, and has experienced recurrence of atrial fibrillation specifically. The patient has a [id number] score of 4. She is off anticoagulation per personal preference. The patient will follow-up with me in 12 months for an office visit and twelve- lead ECG. Assessment & Plan (09/19/2022 2:46 PM USED CAR MANAGER): Five years status post catheter ablation without recurrence. We will continue to monitor and follow closely, and manage new / recurrent arrhythmia expectantly. Assessment & Plan (09/08/2021 4:01 PM USED CAR MANAGER): Paroxysmal atrial fibrillation, 4 years status post catheter ablation. She has not experienced recurrence. Assessment & Plan (09/09/2020 2:02 PM USED CAR MANAGER): Highly symptomatic paroxysmal atrial fibrillation, presently 3 years post ablation. She has not experienced recurrence. Assessment & Plan (03/12/2020 12:14 PM CDT): No recurrence of atrial fibrillation since her ablation. We will continue to follow for recurrence. She is off anticoagulation per her personal preference. The patient will follow-up with me in 6 months for an office visit and twelve- lead ECG. Assessment & Plan (02/01/2020 5:01 PM CDT): The patient has not experienced symptomatic atrial fibrillation since her ablation in August 2017. Assessment & Plan (09/28/2019 12:50 PM USED CAR MANAGER): No recurrence since her ablation in August 2017. We will continue to monitor and follow closely, and manage new / recurrent arrhythmia expectantly. She is off anticoagulation per personal preference. If she experiences recurrence, we will reinitiate. Assessment & Plan (09/14/2018 10:43 AM USED CAR MANAGER): The patient continues to do well 1 year post ablation for paroxysmal atrial fibrillation. She has not experienced recurrent atrial arrhythmia. She is off anticoagulation per her personal preference. We will continue close follow-up for arrhythmia and treat recurrent / new arrhythmia expectantly. Assessment & Plan (03/11/2018 2:28 PM CDT): The patient is 6 months status post ablation for paroxysmal atrial fibrillation. She continues to do well without evidence of recurrence. We will continue to monitor and follow closely, and manage new / recurrent arrhythmia expectantly. She has discontinued anticoagulation per her personal preference. The patient will follow-up with me in 6 months for an office visit and twelve- lead ECG. Assessment & Plan (12/10/2017 4:15 PM CDT): The the patient is 3 months status post ablation for paroxysmal atrial fibrillation. She is doing well and is maintaining sinus rhythm without the use of sotalol. We will continue to monitor and follow closely, and manage new / recurrent arrhythmia expectantly. Assessment & Plan (10/24/2017 1:23 PM CDT): The patient is 6 weeks status post ablation for paroxysmal atrial fibrillation. She is doing well and maintaining sinus rhythm. I recommended that she decrease her sotalol to 60 mg twice a day, then discontinue this medication altogether in 1 month. We will continue to monitor and follow closely, and manage new / recurrent arrhythmia expectantly. Assessment & Plan (07/14/2017 12:33 PM USED CAR MANAGER): The patient has highly symptomatic paroxysmal atrial fibrillation. This has recurred despite use of sotalol. We discussed options for management, including radiofrequency catheter ablation as well as escalation of antiarrhythmic drug therapy (to amiodarone). The patient would like to start amiodarone, with eventual plans to undergo ablation at a later date. We will start the patient had a dose of 400 mg daily for 1 month, then decrease to 200 mg daily. We did discuss the prospect of ablation extensively. We discussed the rationale for atrial fibrillation ablation, including the steps involved in ablation. I detailed the risks of the procedure, including vascular injury/hematoma, myocardial injury/perforation, stroke, myocardial infarction, pulmonary vein stenosis, thermal esophageal injury, and . I estimated a 70-80% chance of freedom from long- term atrial arrhythmia, and the patient understands that occasionally a second procedure is necessary. The patient has indicated that she would like to consider ablation in about 6 months. Assessment & Plan (06/10/2017 7:10 PM USED CAR MANAGER): Increasingly frequent episodes of irregular heart rhythm associated with chest burning which does not occur when her heart rhythm is regular. I think the last few episodes, for which she has not gone to the emergency room, were from atrial fibrillation. This is occurring despite sotalol 120 mg b.i.d., which should not be advanced further because of her resting bradycardia. I have recommended EP consultation for guidance regarding alternative anti rhythmic therapy versus possible ablation. Continue sotalol at current dosage for now, as well as Xarelto. Assessment & Plan (01/11/2017 1:55 PM CDT): First episode in several years, terminated with additional IV Cardizem (she is already on oral Cardizem). She has not historically been anticoagulated, although her current score is 3, and she should be anticoagulated. We discussed anticoagulation options, including warfarin and NOACs, her preference being for the latter. I wrote out the names and dosages of the NOAC options for her to check her insurance coverage for these and let me know which she prefers. For now, in the absence of any further episodes of atrial fibrillation will continue sotalol as prescribed, but if episodes recur, will need to consider increasing her dosage. Essential hypertension 04/29/2012 Overview (11/03/2016): Hypertension Assessment & Plan (09/19/2022 2:48 PM USED CAR MANAGER): I gave her a prescription for low-dose amlodipine, and asked her to follow her blood pressure serially. 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 Assessment & Plan (06/10/2017 7:10 PM USED CAR MANAGER): Blood pressure is adequately controlled on current regimen. No change was made. Assessment & Plan (01/11/2017 1:55 PM CDT): Blood pressure is adequately controlled on current regimen. No change was made. Social History Tobacco Use Types Packs/Day Years Used Date Smoking Tobacco: Former Smokeless Tobacco: Never Tobacco Cessation:Counseling Given: Not Answered Alcohol Use Standard Drinks/Week Comments No 0 (1 standard drink = 0.6 oz pur e alcohol) Comments Unknown Sex and Gender Information Value Date Recorded Sex Assigned at Not on file Legal Sex Female 10:11 AM USED CAR MANAGER Gender Identity Female 01/27/2020 11:31 AM CDT Sexual Orientation Straight 01/27/2020 11 :31 AM CDT Last Filed Vital Signs Vital Sign Reading Time Taken Comments Blood Pressure 130/82 09/04/2024 11:01 AM USED CAR MANAGER Pulse 61 09/04/2024 11:01 AM USED CAR MANAGER Temperature 36.3 C (97.4 F) 09/10/2017 8:24 AM USED CAR MANAGER Respiratory Rate 18 09/06/2022 11:44 AM USED CAR MANAGER Oxygen Saturation 98% 09/06/2023 11:01 AM USED CAR MANAGER Inhaled Oxygen Concentration - - Weight 73.5 kg (162 lb) 09/04/2024 11:01 AM USED CAR MANAGER Height 170.2 cm (5' 7 ) 09/04/2024 11:01 AM USED CAR MANAGER Body Mass Index 25.37 09/04/2024 11:01 AM USED CAR MANAGER Plan of Treatment Not on file Procedures Procedure Name Priority Date/Time Associated Diagnosis Comments ECG 12-LEAD Routine 09/04/2024 11:00 AM USED CAR MANAGER Cardiac arrhythmia, unspecified cardiac arrhythmia type from Last 3 Months Results * ECG 12 lead (09/04/2024 11:00 AM USED CAR MANAGER) us Júnior Dupree MD ECG ORDERABLES Final R esult from Last 3 Months Insurance [facility] Advance Directives For more information, please contact: [phone] * Full Code (Latest Code Status on File) Date Activated Date Inactivated Comments 09/09/2017 5:14 PM 09/10/2017 1:09 PM Care Teams Bar Captain Relationship Specialty Start Date End Date Brad Larkin DO PCP - General Internal Medicine 09/06/22
--- OUTSIDE RECORDS SUMMARY | 2024-09-15 11:36 | XMS_ITS | Clinical Summary ---
Author Organization [facility] Address [address] [place] [address] Care Team Providers Care Enrollment Specialist Name Role Phone Unavailable Primary Care Provider [...]
--- OUTSIDE RECORDS SUMMARY | 2024-09-15 11:36 | XMS_ITS | Clinical Summary ---
Author Organization [facility] Address [address] [place] [address] Care Team Providers Care Kerfer Machine Operator Name Role Phone Brad Larkin DO Primary Care Provider [phone]- [phone] Allergies No known active allergies Medications montelukast [...] (IOL) (Dr. Everett) Release updated glasses Rx watermelon inspector current use of antiarrhythmic drug Assessment & Plan (09/09/2020 2:01 PM CARPENTRY SPECIALIST): 12-lead ECG today does not demonstrate any changes that would prohibit continued use of flecainide. We will continue the patient on the same dose and schedule. As long as the patient continues on this medication, an ECG should be performed at least every 6 months to monitor for toxicity. Dizziness and giddiness 02/01/2020 Ventricular ectopy 09/28/2019 Assessment & Plan (09/04/2024 11:21 AM CARPENTRY SPECIALIST): Symptomatic ventricular ectopy, suppressed with flecainide. 12-lead ECG today does not demonstrate any changes that would prohibit continued use of flecainide. We will continue the patient on the same dose and schedule. As long as the patient continues on this medication, an ECG should be performed at least every 6 months to monitor for toxicity. Assessment & Plan (09/06/2023 1:55 PM CARPENTRY SPECIALIST): Presently doing well with low-dose flecainide. 12-lead ECG today does not demonstrate any changes that would prohibit continued use of flecainide. We will continue the patient on the same dose and schedule. As long as the patient continues on this medication, an ECG should be performed at least every 6 months to monitor for toxicity. Assessment & Plan (09/19/2022 2:47 PM CARPENTRY SPECIALIST): Minimally symptomatic, well-suppressed with flecainide. 12-lead ECG today does not demonstrate any changes that would prohibit continued use of flecainide. We will continue the patient on the same dose and schedule. As long as the patient continues on this medication, an ECG should be performed at least every 6 months to monitor for toxicity. Assessment & Plan (09/08/2021 4:00 PM CARPENTRY SPECIALIST): Symptomatic ventricular ectopy, doing well flecainide. 12-lead ECG today does not demonstrate any changes that would prohibit continued use of flecainide. We will continue the patient on the same dose and schedule. As long as the patient continues on this medication, an ECG should be performed at least every 6 months to monitor for toxicity. Assessment & Plan (09/09/2020 2:01 PM CARPENTRY SPECIALIST): Symptomatic ventricular ectopy, suppressed by ongoing low-dose [...] considered. Assessment & Plan (09/28/2019 12:50 PM CARPENTRY SPECIALIST): Outflow tract ventricular ectopy is completely asymptomatic. No additional therapy is necessary. The patient will follow-up with me in 6 months for an office visit and twelve- lead ECG. 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 Liver function tests and thyroid function tests should be performed at least every 6 months, an assessment of pulmonary function will be needed yearly. We will obtain baseline labs. Anticoagulation management encounter 07/14/2017 Assessment & Plan (09/19/2022 2:47 PM CARPENTRY SPECIALIST): She is off anticoagulation per personal preference. [...] ablation. Assessment & Plan (07/14/2017 12:34 PM CARPENTRY SPECIALIST): The patient has a [id number] score of 3 (annualized risk of stroke 3.2 %). I have therefore recommended that she remain anticoagulated. The patient will follow-up with me in 6 months for an office visit and twelve- lead ECG. LBBB (left bundle branch block) 01/11/2017 Assessment & Plan (09/04/2024 11:22 AM CARPENTRY SPECIALIST): Chronic left bundle branch block, not associated with syncope or other symptoms compatible with bradycardia. No symptoms of congestive heart failure. Assessment & Plan (09/19/2022 2:47 PM CARPENTRY SPECIALIST): Asymptomatic left bundle branch block, of overall indeterminate clinical significance. No LV dysfunction or symptoms of bradycardia. Her left bundle branch block preceded initiation of flecainide, and has not changed in response to this medication. Assessment & Plan (09/08/2021 4:01 PM CARPENTRY SPECIALIST): Left bundle branch block, without associated bradycardia. We will continue to follow clinically. The patient will follow-up with me in 12 months for an office visit and twelve- lead ECG. Assessment & Plan (09/09/2020 2:02 PM CARPENTRY SPECIALIST): Of indeterminate clinical significance. There has been [...] msec. Assessment & Plan (09/28/2019 12:45 PM CARPENTRY SPECIALIST): The patient reported an episode of near-syncope. [...] months. Assessment & Plan (09/14/2018 10:44 AM CARPENTRY SPECIALIST): She has longstanding left bundle branch block [...] ECG. Assessment & Plan (07/14/2017 12:35 PM CARPENTRY SPECIALIST): The patient has left bundle branch block pattern is asymptomatic and not associated with LV dysfunction. Assessment & Plan (06/10/2017 7:11 PM CARPENTRY SPECIALIST): Chronic. Previously assessed and found to be [...] fibrillation Assessment & Plan (09/04/2024 11:21 AM CARPENTRY SPECIALIST): The patient is 7 years status post ablation for atrial fibrillation, doing well. Maintaining sinus rhythm with flecainide, though this medication was initiated for ventricular ectopy, not recurrent atrial arrhythmia. No changes to management today The patient has a [id number] score of 4. I have therefore recommended continued anticoagulation for thromboprophylaxis. The patient will follow-up with me in 12 months for an office visit and twelve- lead ECG. Assessment & Plan (09/06/2023 1:56 PM CARPENTRY SPECIALIST): The patient is 6 years status post ablation for atrial fibrillation, doing well. Maintaining sinus rhythm. No changes to management at present. She is on flecainide for ventricular ectopy, and has experienced recurrence of atrial fibrillation specifically. The patient has a [id number] score of 4. She is off anticoagulation per personal preference. The patient will follow-up with me in 12 months for an office visit and twelve- lead ECG. Assessment & Plan (09/19/2022 2:46 PM CARPENTRY SPECIALIST): Five years status post catheter ablation without recurrence. We will continue to monitor and follow closely, and manage new / recurrent arrhythmia expectantly. Assessment & Plan (09/08/2021 4:01 PM CARPENTRY SPECIALIST): Paroxysmal atrial fibrillation, 4 years status post catheter ablation. She has not experienced recurrence. Assessment & Plan (09/09/2020 2:02 PM CARPENTRY SPECIALIST): Highly symptomatic paroxysmal atrial fibrillation, presently 3 [...] 2017. Assessment & Plan (09/28/2019 12:50 PM CARPENTRY SPECIALIST): No recurrence since her ablation in August 2017. We will continue to monitor and follow closely, and manage new / recurrent arrhythmia expectantly. She is off anticoagulation per personal preference. If she experiences recurrence, we will reinitiate. Assessment & Plan (09/14/2018 10:43 AM CARPENTRY SPECIALIST): The patient continues to do well 1 [...] expectantly. Assessment & Plan (07/14/2017 12:33 PM CARPENTRY SPECIALIST): The patient has highly symptomatic paroxysmal atrial [...] months. Assessment & Plan (06/10/2017 7:10 PM CARPENTRY SPECIALIST): Increasingly frequent episodes of irregular heart rhythm [...] Hypertension Assessment & Plan (09/19/2022 2:48 PM CARPENTRY SPECIALIST): I gave her a prescription for low-dose amlodipine, and asked her to follow her blood pressure serially. She will follow-up with her oil and gas exploration technician. Assessment & Plan (06/10/2017 7:10 PM CARPENTRY SPECIALIST): Blood pressure is adequately controlled on current regimen. No change was made. Assessment & Plan (01/11/2017 1:55 PM CDT): Blood pressure is adequately controlled on current regimen. No change was made. Encounters Date Type Department Care Team Description 09/04/2024 10:45 AM CARPENTRY SPECIALIST [facility] [address] [place] [id number] Júnior Dupree MD Cardiac arrhythmia, unspecified cardiac arrhythmia type (Primary Dx); Paroxysmal atrial fibrillation (CMS/HCC) (HCC); Ventricular ectopy; watermelon inspector current use of antiarrhythmic drug; LBBB (left bundle branch block) from Last 3 Months Surgical History Surgery Date Site/Laterality Comments HYSTERECTOMY 07/29/1982 - 07/28/1983 Hysterectomy HYSTERECTOMY 07/29/1982 - 07/28/1983 Hysterectomy OTHER SURGICAL HISTORY 07/29/1997 - 07/28/1998 Ileostomy for ulcerative colitis OTHER SURGICAL HISTORY Stoma Relocation CARDIAC CATHETERIZATION Medical History Medical History Date Comments Ulcerative colitis (HCC) Ulcerat nikko Colitis Hypertension Hypertension Asthma Arrhythmia Thyroid disease Atrial fibrillation (CMS/HCC) (HCC) Family History Medical History Relation Name Comments Hypertension Mother 2 Hypertension; Relation Name Status Comments Mother 1 Alive Mother 2 Social History Tobacco Use Types Packs/Day Years Used Date Smoking Tobacco: Former Smokeless Tobacco: Never Tobacco Cessation:Counseling Given: Not Answered Alcohol Use Standard Drinks/Week Comments No 0 (1 standard drink = 0.6 oz pur e alcohol) Comments Unknown Sex and Gender Information Value Date Recorded Sex Assigned at Not on file Legal Sex Female 10:11 AM CARPENTRY SPECIALIST Gender Identity Female 01/27/2020 11:31 AM CDT Sexual Orientation Straight 01/27/2020 11 :31 AM CDT Obstetrics History Last Filed Vital Signs Vital Sign Reading Time Taken Comments Blood Pressure 130/82 09/04/2024 11:01 AM CARPENTRY SPECIALIST Pulse 61 09/04/2024 11:01 AM CARPENTRY SPECIALIST Temperature 36.3 C (97.4 F) 09/10/2017 8:24 AM CARPENTRY SPECIALIST Respiratory Rate 18 09/06/2022 11:44 AM CARPENTRY SPECIALIST Oxygen Saturation 98% 09/06/2023 11:01 AM CARPENTRY SPECIALIST Inhaled Oxygen Concentration - - Weight 73.5 kg (162 lb) 09/04/2024 11:01 AM CARPENTRY SPECIALIST Height 170.2 cm (5' 7 ) 09/04/2024 11:01 AM CARPENTRY SPECIALIST Body Mass Index 25.37 09/04/2024 11:01 AM CARPENTRY SPECIALIST Plan of Treatment Health Maintenance Due Date Last Done Comments Depression Screening 1943 Fall Risk Assessment 1945 Osteoporosis Screening-Bone Density Scan 1943 DTaP/Tdap/Td Vaccine (1 - Tdap) 1954 Hepatitis B Screening 1961 Zoster Vaccine (1 of 2) 1993 Well Visit 65+ 2008 Pneumococcal vaccine 65+ (2 of 2 - PPSV23) 03/18/2017 03/18/2016 Influenza Vaccine (#1) 2024 9, 05/05/2018, 06/14/2017, Additional history exists Procedures Procedure Name Priority Date/Time Associated Diagnosis Comments ECG 12-LEAD Routine 09/04/2024 11:00 AM CARPENTRY SPECIALIST Cardiac arrhythmia, unspecified cardiac arrhythmia type from Last 3 Months Results * ECG 12 lead (09/04/2024 11:00 AM CARPENTRY SPECIALIST) us Júnior Dupree MD ECG ORDERABLES Final R esult from Last 3 Months Insurance [facility] Advance Directives For more information, please contact: [phone] * Full Code (Latest Code Status on File) Date Activated Date Inactivated Comments 09/09/2017 5:14 PM 09/10/2017 1:09 PM Care Teams Kerfer Machine Operator Relationship Specialty Start Date End Date Brad Larkin DO PCP - General Internal Medicine 09/06/22
[2024-09-15 16:59] LABS: Anion Gap 10 mmol/L (4-12); Blood Urea Nitrogen 20 mg/dL (7-17); Carbon Dioxide 25 mmol/L (22-30); Chloride 105 mmol/L (98-107); Estimated Glomerular Filt Rate > 60; Glucose 92 mg/dL (65-110); Potassium 4.3 mmol/L (3.4-5.0); Sodium 140 mmol/L (137-145)
== END 2024-09-15 11:34 | disposition home or self-care (01) ==
LOC: ANHGOSHLAB 11:34
PROVIDERS: PCP Internal Medicine; Visit Provider Clinical Nurse Specialist
DX: E83.52 Hypercalcemia (principal)
CPT/HCPCS: 36415; 80048

== ENCOUNTER 2024-12-17 13:45 | Outpatient (CLI) | payer OTHER, SELFPAY ==
--- NOTE | ~2024-12-17 | MM_ITS ---
EXAMINATION: MM screening [facility] HISTORY: Screening TECHNIQUE: Craniocaudal and mediolateral oblique 3-D tomosynthesis images were obtained and synthetic 2-D images were generated. CAD analysis was submitted and interpreted. COMPARISON: Comparison to multiple prior studies sequentially, with oldest reviewed study dated 01/23. BREAST PARENCHYMAL COMPOSITION: Not dense: There are scattered areas of fibroglandular density. FINDINGS: There is no evidence of suspicious mass, calcification, or architectural distortion to sugg est malignancy in either breast. There has been no suspicious interval change. IMPRESSION: 1. No mammographic evidence of malignancy. 2. Recommend routine screening mammography in one year. BI-RADS Category 1: Negative Reviewed, dictated and finalized at location B.
== END 2024-12-17 13:46 | disposition home or self-care (01) ==
LOC: MICIMG 13:47
PROVIDERS: PCP Internal Medicine; Visit Provider Internal Medicine
DX: Z12.31 Encounter for screening mammogram for malignant neoplasm of breast (principal)
CPT/HCPCS: 77063; 77067

== ENCOUNTER 2025-02-01 11:50 | Outpatient (CLI) | payer OTHER, SELFPAY ==
--- OUTSIDE RECORDS SUMMARY | 2025-02-01 11:52 | XMS_ITS | Referral Summary ---
Author Organization [facility] Address [address] [place] [address] Care Team Providers Care Pig Casting Machine Operator Name Role Phone Brad Larkin DO Primary Care Provider [phone]- [phone] Allergies No known active allergies Medications montelukast (SINGULAIR) 10 mg tablet take 1 tablet by oral route every day in the evening 0 0 11/18/19 14 Active Additional Information Patient taking differently:10 mgoral Nightly, Reported on 05/08/2024 dilTIAZem XR (dilTIAZem CD) 240 mg 24 hr capsule take 1 capsule (240MG) by oral route every day 0 03/19/20 12 Active Additional Information Patient taking differently: 180 mg oral Nightly, Patient takes 180 mg daily, Informant: Self, Reported on 09/06/2022 levothyroxine (SYNTHROID, LEVOTHROID) 137 mcg tablet Take 112 mcg by mouth daily Patient take 112 mcg daily Active calcium acetate (PHOSLO) 667 mg tablet Take 3 tablets (2,001 mg total) by mouth daily Active cholecalciferol (VITAMIN D-3) 50,000 unit capsule TAKE 1 CAPSULE BY MOUTH WEEKLY 03/05/20 24 Active escitalopram (LEXAPRO) 10 mg tablet Take 1 tablet (10 mg total) by mouth daily 03/04/20 24 Active rivaroxaban (XARELTO) 20 mg tabletIndicatio ns:atrial fibrillation Take 1 tablet (20 mg total) by mouth daily with dinner 30 tablet 11 05/18/20 24 025 Active flecainide (TAMBOCOR) 50 mg tablet TAKE 1 TABLET BY MOUTH TWICE A DAY 180 tablet 3 01/16/20 25 Active flecainide (TAMBOCOR) 50 mg tablet TAKE 1 TABLET BY MOUTH TWICE A DAY 180 tablet 3 01/31/20 24 025 Discontinued Active Problems Problem Noted Date Diagnosed Date 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 Everett) Release updated glasses Rx terminal operations manager current use of antiarrhythmic drug Assessment & Plan (09/09/2020 2:01 PM PUPPET MASTER): 12-lead ECG today does not demonstrate any changes that would prohibit continued use of flecainide. We will continue the patient on the same dose and schedule. As long as the patient continues on this medication, an ECG should be performed at least every 6 months to monitor for toxicity. Dizziness and giddiness 02/01/2020 Ventricular ectopy 09/28/2019 Assessment & Plan (09/04/2024 11:21 AM PUPPET MASTER): Symptomatic ventricular ectopy, suppressed with flecainide. 12-lead ECG today does not demonstrate any changes that would prohibit continued use of flecainide. We will continue the patient on the same dose and schedule. As long as the patient continues on this medication, an ECG should be performed at least every 6 months to monitor for toxicity. Assessment & Plan (09/06/2023 1:55 PM PUPPET MASTER): Presently doing well with low-dose flecainide. 12-lead ECG today does not demonstrate any changes that would prohibit continued use of flecainide. We will continue the patient on the same dose and schedule. As long as the patient continues on this medication, an ECG should be performed at least every 6 months to monitor for toxicity. Assessment & Plan (09/19/2022 2:47 PM PUPPET MASTER): Minimally symptomatic, well-suppressed with flecainide. 12-lead ECG today does not demonstrate any changes that would prohibit continued use of flecainide. We will continue the patient on the same dose and schedule. As long as the patient continues on this medication, an ECG should be performed at least every 6 months to monitor for toxicity. Assessment & Plan (09/08/2021 4:00 PM PUPPET MASTER): Symptomatic ventricular ectopy, doing well flecainide. 12-lead ECG today does not demonstrate any changes that would prohibit continued use of flecainide. We will continue the patient on the same dose and schedule. As long as the patient continues on this medication, an ECG should be performed at least every 6 months to monitor for toxicity. Assessment & Plan (09/09/2020 2:01 PM PUPPET MASTER): Symptomatic ventricular ectopy, suppressed by ongoing low-dose [...] considered. Assessment & Plan (09/28/2019 12:50 PM PUPPET MASTER): Outflow tract ventricular ectopy is completely asymptomatic. No additional therapy is necessary. The patient will follow-up with me in 6 months for an office visit and twelve- lead ECG. S/P ablation of atrial fibrillation 10/24/2017 At risk for amiodarone toxicity with terminal operations manager u se 07/14/2017 Assessment & Plan (07/14/2017 12:34 PM PUPPET MASTER): As long as the patient continues on this medication, an ECG should be performed at least every 6 months to monitor for toxicity. Liver function tests and thyroid function tests should be performed at least every 6 months, an assessment of pulmonary function will be needed yearly. We will obtain baseline labs. Anticoagulation management encounter 07/14/2017 Assessment & Plan (09/19/2022 2:47 PM PUPPET MASTER): She is off anticoagulation per personal preference. [...] ablation. Assessment & Plan (07/14/2017 12:34 PM PUPPET MASTER): The patient has a [id number] score of 3 (annualized risk of stroke 3.2 %). I have therefore recommended that she remain anticoagulated. The patient will follow-up with me in 6 months for an office visit and twelve- lead ECG. LBBB (left bundle branch block) 01/11/2017 Assessment & Plan (09/04/2024 11:22 AM PUPPET MASTER): Chronic left bundle branch block, not associated with syncope or other symptoms compatible with bradycardia. No symptoms of congestive heart failure. Assessment & Plan (09/19/2022 2:47 PM PUPPET MASTER): Asymptomatic left bundle branch block, of overall indeterminate clinical significance. No LV dysfunction or symptoms of bradycardia. Her left bundle branch block preceded initiation of flecainide, and has not changed in response to this medication. Assessment & Plan (09/08/2021 4:01 PM PUPPET MASTER): Left bundle branch block, without associated bradycardia. We will continue to follow clinically. The patient will follow-up with me in 12 months for an office visit and twelve- lead ECG. Assessment & Plan (09/09/2020 2:02 PM PUPPET MASTER): Of indeterminate clinical significance. There has been [...] msec. Assessment & Plan (09/28/2019 12:45 PM PUPPET MASTER): The patient reported an episode of near-syncope. [...] months. Assessment & Plan (09/14/2018 10:44 AM PUPPET MASTER): She has longstanding left bundle branch block [...] ECG. Assessment & Plan (07/14/2017 12:35 PM PUPPET MASTER): The patient has left bundle branch block pattern is asymptomatic and not associated with LV dysfunction. Assessment & Plan (06/10/2017 7:11 PM PUPPET MASTER): Chronic. Previously assessed and found to be [...] anterior abdominal wall 06/09/2014 Paroxysmal atrial fibrillation 04/29/2012 Overview (11/03/2016): Atrial fibrillation Assessment & Plan (09/04/2024 11:21 AM PUPPET MASTER): The patient is 7 years status post ablation for atrial fibrillation, doing well. Maintaining sinus rhythm with flecainide, though this medication was initiated for ventricular ectopy, not recurrent atrial arrhythmia. No changes to management today The patient has a [id number] score of 4. I have therefore recommended continued anticoagulation for thromboprophylaxis. The patient will follow-up with me in 12 months for an office visit and twelve- lead ECG. Assessment & Plan (09/06/2023 1:56 PM PUPPET MASTER): The patient is 6 years status post ablation for atrial fibrillation, doing well. Maintaining sinus rhythm. No changes to management at present. She is on flecainide for ventricular ectopy, and has experienced recurrence of atrial fibrillation specifically. The patient has a [id number] score of 4. She is off anticoagulation per personal preference. The patient will follow-up with me in 12 months for an office visit and twelve- lead ECG. Assessment & Plan (09/19/2022 2:46 PM PUPPET MASTER): Five years status post catheter ablation without recurrence. We will continue to monitor and follow closely, and manage new / recurrent arrhythmia expectantly. Assessment & Plan (09/08/2021 4:01 PM PUPPET MASTER): Paroxysmal atrial fibrillation, 4 years status post catheter ablation. She has not experienced recurrence. Assessment & Plan (09/09/2020 2:02 PM PUPPET MASTER): Highly symptomatic paroxysmal atrial fibrillation, presently 3 [...] 2017. Assessment & Plan (09/28/2019 12:50 PM PUPPET MASTER): No recurrence since her ablation in August 2017. We will continue to monitor and follow closely, and manage new / recurrent arrhythmia expectantly. She is off anticoagulation per personal preference. If she experiences recurrence, we will reinitiate. Assessment & Plan (09/14/2018 10:43 AM PUPPET MASTER): The patient continues to do well 1 [...] expectantly. Assessment & Plan (07/14/2017 12:33 PM PUPPET MASTER): The patient has highly symptomatic paroxysmal atrial [...] months. Assessment & Plan (06/10/2017 7:10 PM PUPPET MASTER): Increasingly frequent episodes of irregular heart rhythm [...] Hypertension Assessment & Plan (09/19/2022 2:48 PM PUPPET MASTER): I gave her a prescription for low-dose amlodipine, and asked her to follow her blood pressure serially. She will follow-up with her animal killer. Assessment & Plan (06/10/2017 7:10 PM PUPPET MASTER): Blood pressure is adequately controlled on current [...] on file Legal Sex Female 10:11 AM PUPPET MASTER Gender Identity Female 01/27/2020 11:31 AM CDT Sexual Orientation Straight 01/27/2020 11 :31 AM CDT Last Filed Vital Signs Vital Sign Reading Time Taken Comments Blood Pressure 130/82 09/04/2024 11:01 AM PUPPET MASTER Pulse 61 09/04/2024 11:01 AM PUPPET MASTER Temperature 36.3 C (97.4 F) 09/10/2017 8:24 AM PUPPET MASTER Respiratory Rate 18 09/06/2022 11:44 AM PUPPET MASTER Oxygen Saturation 98% 09/06/2023 11:01 AM PUPPET MASTER Inhaled Oxygen Concentration - - Weight 73.5 kg (162 lb) 09/04/2024 11:01 AM PUPPET MASTER Height 170.2 cm (5' 7) 09/04/2024 11:01 AM PUPPET MASTER Body Mass Index 25.37 09/04/2024 11:01 AM PUPPET MASTER Plan of Treatment Not on file Insurance Advance Directives For more information, please contact: [phone] * Full Code (Latest Code Status on File) Date Activated Date Inactivated Comments 09/09/2017 5:14 PM 09/10/2017 1:09 PM Care Teams Pig Casting Machine Operator Relationship Specialty Start Date End Date Brad Larkin DO PCP - General Internal Medicine 09/06/22
--- OUTSIDE RECORDS SUMMARY | 2025-02-01 11:52 | XMS_ITS | Clinical Summary ---
Author Organization [facility] Address [address] [place] [address] Care Team Providers Care Equipment Maintenance Tech Name Role Phone Brad Larkin DO Primary Care Provider [phone] Allergies No known active allergies Medications montelukast [...] (IOL) (Dr. 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 We will continue the patient on the same dose and schedule. As long as the patient continues on this medication, an ECG should be performed at least every 6 months to monitor for toxicity. Dizziness and giddiness 02/01/2020 Ventricular ectopy 09/28/2019 Assessment & Plan (09/04/2024 11:21 AM BARREL HANDLER): Symptomatic ventricular ectopy, suppressed with flecainide. 12-lead ECG today does not demonstrate any changes that would prohibit continued use of flecainide. We will continue the patient on the same dose and schedule. As long as the patient continues on this medication, an ECG should be performed at least every 6 months to monitor for toxicity. Assessment & Plan (09/06/2023 1:55 PM BARREL HANDLER): Presently doing well with low-dose flecainide. 12-lead ECG today does not demonstrate any changes that would prohibit continued use of flecainide. We will continue the patient on the same dose and schedule. As long as the patient continues on this medication, an ECG should be performed at least every 6 months to monitor for toxicity. Assessment & Plan (09/19/2022 2:47 PM BARREL HANDLER): Minimally symptomatic, well-suppressed with flecainide. 12-lead ECG today does not demonstrate any changes that would prohibit continued use of flecainide. We will continue the patient on the same dose and schedule. As long as the patient continues on this medication, an ECG should be performed at least every 6 months to monitor for toxicity. Assessment & Plan (09/08/2021 4:00 PM BARREL HANDLER): Symptomatic ventricular ectopy, doing well flecainide. 12-lead ECG today does not demonstrate any changes that would prohibit continued use of flecainide. We will continue the patient on the same dose and schedule. As long as the patient continues on this medication, an ECG should be performed at least every 6 months to monitor for toxicity. Assessment & Plan (09/09/2020 2:01 PM BARREL HANDLER): Symptomatic ventricular ectopy, suppressed by ongoing low-dose [...] considered. Assessment & Plan (09/28/2019 12:50 PM BARREL HANDLER): Outflow tract ventricular ectopy is completely asymptomatic. No additional therapy is necessary. The patient will follow-up with me in 6 months for an office visit and twelve- lead ECG. S/P ablation of atrial fibrillation 10/24/2017 At risk for amiodarone toxicity with termite exterminator u se 07/14/2017 Assessment & Plan (07/14/2017 12:34 PM BARREL HANDLER): As long as the patient continues on this medication, an ECG should be performed at least every 6 months to monitor for toxicity. Liver function tests and thyroid function tests should be performed at least every 6 months, an assessment of pulmonary function will be needed yearly. We will obtain baseline labs. Anticoagulation management encounter 07/14/2017 Assessment & Plan (09/19/2022 2:47 PM BARREL HANDLER): She is off anticoagulation per personal preference. [...] ablation. Assessment & Plan (07/14/2017 12:34 PM BARREL HANDLER): The patient has a [id number] score of 3 (annualized risk of stroke 3.2 %). I have therefore recommended that she remain anticoagulated. The patient will follow-up with me in 6 months for an office visit and twelve- lead ECG. LBBB (left bundle branch block) 01/11/2017 Assessment & Plan (09/04/2024 11:22 AM BARREL HANDLER): Chronic left bundle branch block, not associated with syncope or other symptoms compatible with bradycardia. No symptoms of congestive heart failure. Assessment & Plan (09/19/2022 2:47 PM BARREL HANDLER): Asymptomatic left bundle branch block, of overall indeterminate clinical significance. No LV dysfunction or symptoms of bradycardia. Her left bundle branch block preceded initiation of flecainide, and has not changed in response to this medication. Assessment & Plan (09/08/2021 4:01 PM BARREL HANDLER): Left bundle branch block, without associated bradycardia. We will continue to follow clinically. The patient will follow-up with me in 12 months for an office visit and twelve- lead ECG. Assessment & Plan (09/09/2020 2:02 PM BARREL HANDLER): Of indeterminate clinical significance. There has been [...] msec. Assessment & Plan (09/28/2019 12:45 PM BARREL HANDLER): The patient reported an episode of near-syncope. [...] months. Assessment & Plan (09/14/2018 10:44 AM BARREL HANDLER): She has longstanding left bundle branch block [...] ECG. Assessment & Plan (07/14/2017 12:35 PM BARREL HANDLER): The patient has left bundle branch block pattern is asymptomatic and not associated with LV dysfunction. Assessment & Plan (06/10/2017 7:11 PM BARREL HANDLER): Chronic. Previously assessed and found to be [...] fibrillation Assessment & Plan (09/04/2024 11:21 AM BARREL HANDLER): The patient is 7 years status post ablation for atrial fibrillation, doing well. Maintaining sinus rhythm with flecainide, though this medication was initiated for ventricular ectopy, not recurrent atrial arrhythmia. No changes to management today The patient has a [id number]-COYo score of 4. I have therefore recommended continued anticoagulation for thromboprophylaxis. The patient will follow-up with me in 12 months for an office visit and twelve- lead ECG. Assessment & Plan (09/06/2023 1:56 PM BARREL HANDLER): The patient is 6 years status post ablation for atrial fibrillation, doing well. Maintaining sinus rhythm. No changes to management at present. She is on flecainide for ventricular ectopy, and has experienced recurrence of atrial fibrillation specifically. The patient has a UHB1VQ9-YKSe score of 4. She is off anticoagulation per personal preference. The patient will follow-up with me in 12 months for an office visit and twelve- lead ECG. Assessment & Plan (09/19/2022 2:46 PM BARREL HANDLER): Five years status post catheter ablation without recurrence. We will continue to monitor and follow closely, and manage new / recurrent arrhythmia expectantly. Assessment & Plan (09/08/2021 4:01 PM BARREL HANDLER): Paroxysmal atrial fibrillation, 4 years status post catheter ablation. She has not experienced recurrence. Assessment & Plan (09/09/2020 2:02 PM BARREL HANDLER): Highly symptomatic paroxysmal atrial fibrillation, presently 3 [...] 2017. Assessment & Plan (09/28/2019 12:50 PM BARREL HANDLER): No recurrence since her ablation in August 2017. We will continue to monitor and follow closely, and manage new / recurrent arrhythmia expectantly. She is off anticoagulation per personal preference. If she experiences recurrence, we will reinitiate. Assessment & Plan (09/14/2018 10:43 AM BARREL HANDLER): The patient continues to do well 1 [...] expectantly. Assessment & Plan (07/14/2017 12:33 PM BARREL HANDLER): The patient has highly symptomatic paroxysmal atrial [...] months. Assessment & Plan (06/10/2017 7:10 PM BARREL HANDLER): Increasingly frequent episodes of irregular heart rhythm [...] Hypertension Assessment & Plan (09/19/2022 2:48 PM BARREL HANDLER): I gave her a prescription for low-dose amlodipine, and asked her to follow her blood pressure serially. She will follow-up with her movement therapist. Assessment & Plan (06/10/2017 7:10 PM BARREL HANDLER): Blood pressure is adequately controlled on current regimen. No change was made. Assessment & Plan (01/11/2017 1:55 PM CDT): Blood pressure is adequately controlled on current regimen. No change was made. Surgical History Surgery Date Site/Laterality Comments HYSTERECTOMY 07/29/1982 - 07/28/1983 Hysterectomy HYSTERECTOMY 07/29/1982 - 07/28/1983 Hysterectomy OTHER SURGICAL HISTORY 07/29/1997 - 07/28/1998 Ileostomy for ulcerative colitis OTHER SURGICAL HISTORY Stoma Relocation CARDIAC CATHETERIZATION Medical History Medical History Date Comments Ulcerative colitis (HCC) Ulcerat nikko Colitis Hypertension Hypertension Asthma Arrhythmia Thyroid disease Atrial fibrillation (HCC) Family History Medical History Relation Name [...] on file Legal Sex Female 10:11 AM BARREL HANDLER Gender Identity Female 01/27/2020 11:31 AM CDT Sexual Orientation Straight 01/27/2020 11 :31 AM CDT Obstetrics History Last Filed Vital Signs Vital Sign Reading Time Taken Comments Blood Pressure 130/82 09/04/2024 11:01 AM BARREL HANDLER Pulse 61 09/04/2024 11:01 AM BARREL HANDLER Temperature 36.3 C (97.4 F) 09/10/2017 8:24 AM BARREL HANDLER Respiratory Rate 18 09/06/2022 11:44 AM BARREL HANDLER Oxygen Saturation 98% 09/06/2023 11:01 AM BARREL HANDLER Inhaled Oxygen Concentration - - Weight 73.5 kg (162 lb) 09/04/2024 11:01 AM BARREL HANDLER Height 170.2 cm (5' 7) 09/04/2024 11:01 AM BARREL HANDLER Body Mass Index 25.37 09/04/2024 11:01 AM BARREL HANDLER Plan of Treatment Health Maintenance Due Date Last Done Comments Depression Screening 1943 Fall Risk Assessment 1943 Osteoporosis Screening-Bone Density Scan 1943 DTaP/Tdap/Td Vaccine (1 - Tdap) 1954 Hepatitis B Screening 1961 Zoster Vaccine (1 of 2) 1993 Well Visit 65+ 2008 Pneumococcal vaccine 65+ (2 of 2 - PPSV23) 03/18/2017 03/18/2016 Influenza Vaccine (#1) 2025 9, 05/05/2018, 06/14/2017, Additional history exists Insurance [facility] Advance Directives For more information, please contact: [phone] * Full Code (Latest Code Status on File) Date Activated Date Inactivated Comments 09/09/2017 5:14 PM 09/10/2017 1:09 PM Care Teams Equipment Maintenance Tech Relationship Specialty Start Date End Date Brad Larkin DO PCP - General Internal Medicine 09/06/22
[2025-02-01 13:25] LABS: Hematocrit 41.9 % (37.0-47.0); Hemoglobin 13.2 g/dL (12.0-15.0); Immature Granulocyte Percent A 0.2 % (0-0.5); Lymphocytes Absolute Auto 1.84 K/mm3 (0.9-3.2); Mean Corpuscular HGB Conc 31.5 g/dl (32-36); Mean Corpuscular Hemoglobin 27.7 pg (26-34); Mean Corpuscular Volume 87.8 fl (80-100); Nucleated Red Blood Cells Absolute Auto 0.000 K/mm3 (0.0-0.012); Nucleated Red Blood Cells Perc 0.0 % (0.0-0.2); Platelet Count Result 291 k/mm3 (150-375); Red Blood Count 4.77 M/mm3 (4.2-5.4); White Blood Count 8.3 K/mm3 (4.5-10.0)
[2025-02-01 13:40] LABS: Alanine Aminotransferase 17 U/L (6-35); Albumin Level 4.2 g/dL (3.5-5.1); Alkaline Phosphatase 51 U/L (38-126); Anion Gap 7 mmol/L (4-12); Aspartate Amino Transferase 40 U/L (14-36); Bilirubin,Total 0.5 mg/dL (0.2-1.3); Blood Urea Nitrogen 18 mg/dL (7-17); Calcium 10.2 mg/dL (8.4-10.2); Carbon Dioxide 28 mmol/L (22-30); Chloride 105 mmol/L (98-107); Cholesterol 200 mg/dL (0-200); Estimated Glomerular Filt Rate 53; Glucose 91 mg/dL (65-110); HDL Direct 65 mg/dL; Potassium 3.8 mmol/L (3.4-5.0); Sodium 140 mmol/L (137-145); Total Protein 8.0 g/dL (6.3-8.2); Triglycerides 113 mg/dL (<150)
[2025-02-01 14:03] LABS: Free T4 Free Thyroxine 1.27 ng/dL (0.78-2.19)
[2025-02-01 14:15] LABS: Thyroid Stimulating Hormone 5.160 uIU/mL (0.465-4.680)
[2025-02-01 14:35] LABS: Vitamin B12 913.0 pg/mL (239-931)
== END 2025-02-01 11:51 | disposition home or self-care (01) ==
PROVIDERS: PCP Internal Medicine; Visit Provider Clinical Nurse Specialist
DX: R41.3 Other amnesia (principal); I48.0 Paroxysmal atrial fibrillation; E78.00 Pure hypercholesterolemia, unspecified; Z79.01 Long term (current) use of anticoagulants; E03.9 Hypothyroidism, unspecified; E55.9 Vitamin D deficiency, unspecified; K51.90 Ulcerative colitis, unspecified, without complications; F41.9 Anxiety disorder, unspecified; I12.9 Hypertensive chronic kidney disease with stage 1 through stage 4 chronic kidney disease, or unspecified chronic kidney disease; N18.31 Chronic kidney disease, stage 3a
CPT/HCPCS: 36415; 80053; 80061; 82306; 82607; 84439; 84443; 85025

== ENCOUNTER 2025-03-01 11:44 | Outpatient (CLI) | payer OTHER, SELFPAY ==
--- OUTSIDE RECORDS SUMMARY | 2025-03-01 12:02 | XMS_ITS | Patient Health Record ---
Author Organization [facility] [employer] [place] ([address]) Address [address] [place] [address] Care Team Providers Care Provider Network Manager Name Role Phone Brad Larkin Primary Care Provider Unavailab Angelita Crowley Unavailable [phone] Gita Vines Unavailable Unavailable Allergies Allergen (clinical drug ingredient) Drug/Non Drug Allergy documented on EMR Reaction Allergy Type Onset Date Status cefdinir Cefdinir rash Drug Allergy Active Results Component Value Reference Range Notes Spirometry Reviewed date: Interpretation:Normal Performing Lab: Notes/Report: Normal SpiroPreBronchodilator_FVC 3.09 SpiroPostBronchodilator_FEF25_75 0 SpiroPreBronchodilator_FEF25_75 2.35 SpiroPreBronchodilator_FEV1 2.45 SpiroPrecentPredictionPost_FEF25_75 0 SpiroPrecentPredictionPost_FEV1 0 SpiroPrecentPredictionPost_FEV1_OVER_FVC 0 SpiroPrecentPredictionPost_FVC 0 SpiroPrecentPredictionPre_FEF25_75 148.7 SpiroPrecentPredictionPre_FEV1 112.4 SpiroPrecentPredictionPre_FEV1_OVER_FVC 110.4 SpiroPrecentPredictionPre_FVC 102.3 SpiroPredicted_FEF25_75 1.58 SpiroPreBronchodilator_FEV1_OVER_FVC 79.29 SpiroPreBronchodilator_PEF 5.94 SpiroPostBronchodilator_FVC 0 SpiroPostBronchodilator_FEV1 0 SpiroPostBronchodilator_FEV1_OVER_FVC 0 SpiroPostBronchodilator_PEF 0 SpiroPredicted_FVC 3.02 SpiroPredicted_FEV1 2.18 SpiroPredicted_FEV1_OVER_FVC 71.79 SpiroPredicted_PEF 5.58 Reason For Referral Referring Provider First Name Brad Referring Provider Last Name Chaya Referring Provider Speciality Internal M edicine Referred Organization [facility] Referred Provider Angelita Bello Referred Address [address],[place], [place],[address],[place] Referred Provider Specialty Allergy/Immu nology Referral Priority Routine Medications Medication SIG (Take, Route, Frequency, Duration) Notes Start Date End Date Status dilTIAZem HCl ER 120 MG 1 cap(s) orally every 12 hours; Duration: 30 day(s) Active Fluticasone Propionate 50 MCG/ACT 2 spray(s) in each nostril Qday; Duration: 30 day(s) Not-Taking Synthroid 112 MCG 1 tab(s) orally once a day; Duration: 30 day(s) Active Montelukast Sodium 10 MG 1 tab(s) orally once a day; Duration: 30 day(s) Active Probiotic 1-250 BILLION-MG as directed Orally Active Amoxicillin-Pot Clavulanate 875-125 MG 1 tab(s) orally every 12 hours; Duration: 10 days Active ZyrTEC Allergy 10 MG 1 tablet Orally Once a day Active Flecainide Acetate 50 MG as directed Orally Active Budesonide-Formote rol Fumarate 160-4.5 MCG/ACT 2 puffs Inhalation Twice a day; Duration: 90 days Active Xarelto 2.5 MG 1 tablet with food Orally Twice a day Active NASAL WASHES N/A as directed intranasally as needed; Duration: 30 Active Folbee Plus CZ VITAMIN B COMPLEX WITH C, FOLIC ACID AND ZINC 1 TAB(S) ORALLY ONCE A DAY 3x a week *Please review and pick correct strength-formulat ion from Connotate options. If intended option is not shown, discontinue and re-order from Quick Search* Active ALBUTEROL (EQV-PROVENTIL HFA) 90 mcg/inh 2 puff(s) inhaled Q4-6 hours, PRN and per the asthma action plan; Duration: 30 day(s) Active Budesonide-Formote rol Fumarate 160-4.5 MCG/ACT Inhalation; Duration: 30 Days Active Azelastine HCl 137 MCG/SPRAY 2 puffs (1 spray in each nostril) Nasally Twice a day; Duration: 30 day(s) 09/08/2024 Not-Taking Immunizations Vaccine Route Administration Date Status Comme nts COVID-19 (Moderna) Unknown 09/06/2020 Administered COVID-19 (Moderna) Unknown 10/04/2020 Administered COVID-19 (Moderna) Unknown 06/13/2021 Administered Fluad Unknown 05/01/2021 Administered Social History Tobacco Use: Social History Observation Description Date Details (start date - stop date) Former Smoker NA - NA Sex Assigned At : Social History Observation Description Sex Assigned At Female Smoking Smart Form: Question Answer Notes Are you a: former smoker How long it has been since you last smoked? > 10 years Tobacco Control (Standard) Question Answer Notes Tobacco use: Former smoker Problems Problem Type SNOMED Code ICD Code Onset Dates Problem Status W/U Status Risk Notes Problem Chronic allergic conjunctivitis (02481043) Other chronic allergic conjunctivitis (H10.45) Active confirmed Problem Allergic rhinitis caused by pollen (disorder) (01091491) Allergic rhinitis due to pollen (J30.1) Active confirmed Problem Allergic rhinitis caused by animal hair and dander (491117323741017) Allergic rhinitis due to animal (cat) (dog) hair and dander (J30.81) Active confirmed Problem Allergic rhinitis (74813040) Other allergic rhinitis (J30.89) Active confirmed Problem Chronic pansinusitis (56017571) Chronic pansinusitis (J32.4) Active confirmed Problem Uncomplicated moderate persistent asthma (164288330) Moderate persistent asthma, uncomplicated (J45.40) Active confirmed Problem Dermatitis (655348109) Dermatitis, unspecified (L30.9) Active confirmed Problem Allergic rhinitis caused by pollen (disorder) (97052498) Allergic rhinitis due to pollen (J30.1) Active confirmed Problem Allergic rhinitis caused by animal hair and dander (045335779612570) Allergic rhinitis due to animal (cat) (dog) hair and dander (J30.81) Active confirmed Problem Allergic rhinitis (35847852) Other allergic rhinitis (J30.89) Active confirmed Problem Chronic allergic conjunctivitis (20176550) Other chronic allergic conjunctivitis (H10.45) Active confirmed Problem Allergy status t o other antibiotic agents (Z88.1) Active confirmed Vital Signs Blood pressure diastolic 69 mm Hg 01/19/2025 Oximetry 99 % 01/19/2025 Height 67 in 01/19/2025 Blood pressure systolic 123 mm Hg 01/19/2025 Weight 161.6 lbs 01/19/2025 BMI 25.31 kg/m2 01/19/2025 Encounters Encounter Location Date Provider Diagnosis [facility] [address] [place] [phone] 04/28/2024 Angelita Bello Moderate persistent asthma, uncomplicated J45.40 ; Chronic pansinusitis J32.4 ; Allergy status to other antibiotic agents Z88.1 ; Allergic rhinitis due to pollen J30.1 ; Allergic rhinitis due to animal (cat) (dog) hair and dander J30.81 ; Other allergic rhinitis J30.89 and Other chronic allergic conjunctivitis H10.45 [facility] [address] [place] [address] 01/19/2025 Angelita Bello Moderate persistent asthma, uncomplicated J45.40 ; Chronic pansinusitis J32.4 ; Allergy status to other antibiotic agents Z88.1 ; Allergic rhinitis due to pollen J30.1 ; Allergic rhinitis due to animal (cat) (dog) hair and dander J30.81 ; Other allergic rhinitis J30.89 and Other chronic allergic conjunctivitis H10.45 [facility] [address] [place] [phone] 09/08/2024 Angelita Bello Moderate persistent asthma, uncomplicated J45.40 ; Chronic pansinusitis J32.4 ; Allergy status to other antibiotic agents Z88.1 ; Allergic rhinitis due to pollen J30.1 ; Allergic rhinitis due to animal (cat) (dog) hair and dander J30.81 ; Other allergic rhinitis J30.89 and Other chronic allergic conjunctivitis H10.[address] [address] 03/09/2024 Angelita Bello Allergic rhinitis du e to pollen J30.[address] [address] 09/09/2024 Angelita Bello [facility] [address] [place] [address] 08/11/2024 Angelita Bello Moderate persistent asthma, uncomplicated J45.40 [facility] [address] [place] [address] [address] [place] [address] 04/29/2024 Angelita Bello Moderate persistent asthma, uncomplicated J45.40 [facility] [address] [place] [phone] 04/06/2024 Angelita Bello Allergic rhinitis du e to pollen J30.1 Assessments Encounter Date Diagnosis (ICD Code) Assessment Notes Treatment Notes Treatment Clinical Notes Section Notes 03/09/2024 Allergic rhinitis due to pollen (ICD-10 [...] She is going to receive Pneumovax at [facility]. Start [facility] for current symptoms. 04/28/2024 Moderate persistent asthma, [...] albuterol. Spirometry held today due to sinusitis 01/19/2025 Chronic pansinusitis (ICD-10 - J32.4) CT sinus 05-18-22 showed moderate mucosal thickening of the maxillary, ethmoid, sphenoid and frontal sinuses. Sinus surgery was performed . 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 Normal tetanus and HIB. S. Pneumo +13.23 serotypes. She received Prevnar . Insurance would not cover post titers. 01/19/2025 Moderate persistent asthma, uncomplicated (ICD-10 - J45.40) Persistent asthma which appears under good control with Symbicort. Spirometry today is normal. Due to recurrent issues with thrush, switched to Symbicort and continue prn albuterol. 09/08/2024 Allergy status to other antibiotic agents (ICD-10 - Z88.1) History of taking cefdinir and developing a rash. Recommend continued avoidance for now. Tolerates amoxicillin 01/19/2025 Allergy status to other antibiotic agents (ICD-10 - Z88.1) History of taking cefdinir and developing a rash. Recommend continued avoidance for now. Tolerates amoxicillin 04/28/2024 Allergy status to other antibiotic agents (ICD-10 - Z88.1) History of taking cefdinir and developing a rash. Recommend continued avoidance for now. Tolerates amoxicillin 04/28/2024 Allergic rhinitis due to pollen (ICD-10 - J30.1) Fallon clearly suffers from atopic disease based upon our skin testing. No improvement with immunotherapy and has discontinued. 01/19/2025 Allergic rhinitis due to pollen (ICD-10 - [...] (dog) hair and dander (ICD-10 - J30.81) 01/19/2025 Allergic rhinitis due to animal (cat) (dog) hair and dander (ICD-10 - J30.81) 04/28/2024 Allergic rhinitis due to animal (cat) (dog) hair and dander (ICD-10 - J30.81) 04/28/2024 Other allergic rhinitis (ICD-10 - J30.89) 09/08/2024 Other allergic rhinitis (ICD-10 - J30.89) 01/19/2025 Other allergic rhinitis (ICD-10 - J30.89) 01/19/2025 Other chronic allergic conjunctivitis (ICD-10 - H10.45) Given ocular signs and symptoms I encouraged allergy avoidance measures and meds as above. If symptoms persist, consider adding additional medications including intraocular antihistamine/mast cell stabilizer, PRN 09/08/2024 Other chronic allergic conjunctivitis (ICD-10 - [...] intraocular antihistamine/mast cell stabilizer, PRN 04/28/2024 Other 09/08/2024 Other 01/19/2025 Other Plan Of Treatment Pending Test Test Name Order Date Spirometry 09/08/2024 STREPTOCOCCUS PNEUMONIAE IGG AB (23 SERO TYPES) 09/08/2024 TETANUS ANTITOXOID ANTIBODY (EIA) 2023 CBC (INCLUDES DIFF/PLT) 01/15/2024 HAEMOPHILUS INFLUENZAE B ANTIBODY, IGG 0 01/15/2024 IMMUNOGLOBULINS A/E/G/M,SERUM 01/15/2024 S. PNEUMONIAE IGG AB, 23 SEROTYPES, S Next Appt Details Provider Name:Angelita leary, 07/13/2025 10:00:00 AM, [address] [facility], [address], [place], [address], Insurance Providers Payer Name Payer Address Payer Phone Subscriber Number Group Number Insured Name Patient Relationship to Insured Coverage Start Date Coverage End Date [employer] [address] [address] [place] [phone] [id number] Fallon Agarwal Self - patient is the insured 4 Medical (General) History Medical History History ICD Code Atrial Fibrillation Moderate persistent asthma, uncomplicate d J45.40 Ulcerative Colitis Surgical History Surgery Date(Month/Year) Hysterectomy 1983 Sinus Surgery 2022 iliostomy for ulcerative colitis 1997
--- OUTSIDE RECORDS SUMMARY | 2025-03-01 12:02 | XMS_ITS | Clinical Summary ---
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 Everett) Release updated glasses Rx engineering lab technician current use of antiarrhythmic drug Assessment & Plan (09/09/2020 2:01 PM AUTOMATIC QUILLING MACHINE OPERATOR): 12-lead ECG today does not demonstrate any changes that would prohibit continued use of flecainide. We will continue the patient on the same dose and schedule. As long as the patient continues on this medication, an ECG should be performed at least every 6 months to monitor for toxicity. 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 12-lead ECG today does not demonstrate any changes that would prohibit continued use of flecainide. We will continue the patient on the same dose and schedule. As long as the patient continues on this medication, an ECG should be performed at least every 6 months to monitor for toxicity. Assessment & Plan (09/06/2023 1:55 PM AUTOMATIC QUILLING MACHINE OPERATOR): Presently doing well with low-dose flecainide. 12-lead ECG today does not demonstrate any changes that would prohibit continued use of flecainide. We will continue the patient on the same dose and schedule. As long as the patient continues on this medication, an ECG should be performed at least every 6 months to monitor for toxicity. Assessment & Plan (09/19/2022 2:47 PM AUTOMATIC QUILLING MACHINE OPERATOR): Minimally symptomatic, well-suppressed with flecainide. 12-lead ECG today does not demonstrate any changes that would prohibit continued use of flecainide. We will continue the patient on the same dose and schedule. As long as the patient continues on this medication, an ECG should be performed at least every 6 months to monitor for toxicity. Assessment & Plan (09/08/2021 4:00 PM AUTOMATIC QUILLING MACHINE OPERATOR): Symptomatic ventricular ectopy, doing well flecainide. 12-lead ECG today does not demonstrate any changes that would prohibit continued use of flecainide. We will continue the patient on the same dose and schedule. As long as the patient continues on this medication, an ECG should be performed at least every 6 months to monitor for toxicity. Assessment & Plan (09/09/2020 2:01 PM AUTOMATIC QUILLING MACHINE OPERATOR): Symptomatic ventricular ectopy, suppressed by ongoing low-dose [...] considered. Assessment & Plan (09/28/2019 12:50 PM AUTOMATIC QUILLING MACHINE OPERATOR): Outflow tract ventricular ectopy is completely asymptomatic. No additional therapy is necessary. The patient will follow-up with me in 6 months for an office visit and twelve- lead ECG. S/P ablation of atrial fibrillation 10/24/2017 At risk for amiodarone toxicity with chili powder mixer u se 07/14/2017 Assessment & Plan (07/14/2017 12:34 PM AUTOMATIC QUILLING MACHINE OPERATOR): As long as the patient continues on this medication, an ECG should be performed at least every 6 months to monitor for toxicity. Liver function tests and thyroid function tests should be performed at least every 6 months, an assessment of pulmonary function will be needed yearly. We will obtain baseline labs. Anticoagulation management encounter 07/14/2017 Assessment & Plan (09/19/2022 2:47 PM AUTOMATIC QUILLING MACHINE OPERATOR): She is off anticoagulation per personal preference. [...] ablation. Assessment & Plan (07/14/2017 12:34 PM AUTOMATIC QUILLING MACHINE OPERATOR): The patient has a [id number] score of 3 (annualized risk of stroke 3.2 %). I have therefore recommended that she remain anticoagulated. The patient will follow-up with me in 6 months for an office visit and twelve- lead ECG. LBBB (left bundle branch block) 01/11/2017 Assessment & Plan (09/04/2024 11:22 AM AUTOMATIC QUILLING MACHINE OPERATOR): Chronic left bundle branch block, not associated with syncope or other symptoms compatible with bradycardia. No symptoms of congestive heart failure. Assessment & Plan (09/19/2022 2:47 PM AUTOMATIC QUILLING MACHINE OPERATOR): Asymptomatic left bundle branch block, of overall indeterminate clinical significance. No LV dysfunction or symptoms of bradycardia. Her left bundle branch block preceded initiation of flecainide, and has not changed in response to this medication. Assessment & Plan (09/08/2021 4:01 PM AUTOMATIC QUILLING MACHINE OPERATOR): Left bundle branch block, without associated bradycardia. We will continue to follow clinically. The patient will follow-up with me in 12 months for an office visit and twelve- lead ECG. Assessment & Plan (09/09/2020 2:02 PM AUTOMATIC QUILLING MACHINE OPERATOR): Of indeterminate clinical significance. There has been [...] msec. Assessment & Plan (09/28/2019 12:45 PM AUTOMATIC QUILLING MACHINE OPERATOR): The patient reported an episode of near-syncope. [...] months. Assessment & Plan (09/14/2018 10:44 AM AUTOMATIC QUILLING MACHINE OPERATOR): She has longstanding left bundle branch block [...] ECG. Assessment & Plan (07/14/2017 12:35 PM AUTOMATIC QUILLING MACHINE OPERATOR): The patient has left bundle branch block pattern is asymptomatic and not associated with LV dysfunction. Assessment & Plan (06/10/2017 7:11 PM AUTOMATIC QUILLING MACHINE OPERATOR): Chronic. Previously assessed and found to be [...] fibrillation Assessment & Plan (09/04/2024 11:21 AM AUTOMATIC QUILLING MACHINE OPERATOR): The patient is 7 years status post ablation for atrial fibrillation, doing well. Maintaining sinus rhythm with flecainide, though this medication was initiated for ventricular ectopy, not recurrent atrial arrhythmia. No changes to management today The patient has a [id number] score of 4. I have therefore recommended continued anticoagulation for thromboprophylaxis. The patient will follow-up with me in 12 months for an office visit and twelve- lead ECG. Assessment & Plan (09/06/2023 1:56 PM AUTOMATIC QUILLING MACHINE OPERATOR): The patient is 6 years status post ablation for atrial fibrillation, doing well. Maintaining sinus rhythm. No changes to management at present. She is on flecainide for ventricular ectopy, and has experienced recurrence of atrial fibrillation specifically. The patient has a [id number] score of 4. She is off anticoagulation per personal preference. The patient will follow-up with me in 12 months for an office visit and twelve- lead ECG. Assessment & Plan (09/19/2022 2:46 PM AUTOMATIC QUILLING MACHINE OPERATOR): Five years status post catheter ablation without recurrence. We will continue to monitor and follow closely, and manage new / recurrent arrhythmia expectantly. Assessment & Plan (09/08/2021 4:01 PM AUTOMATIC QUILLING MACHINE OPERATOR): Paroxysmal atrial fibrillation, 4 years status post catheter ablation. She has not experienced recurrence. Assessment & Plan (09/09/2020 2:02 PM AUTOMATIC QUILLING MACHINE OPERATOR): Highly symptomatic paroxysmal atrial fibrillation, presently 3 [...] 2017. Assessment & Plan (09/28/2019 12:50 PM AUTOMATIC QUILLING MACHINE OPERATOR): No recurrence since her ablation in August 2017. We will continue to monitor and follow closely, and manage new / recurrent arrhythmia expectantly. She is off anticoagulation per personal preference. If she experiences recurrence, we will reinitiate. Assessment & Plan (09/14/2018 10:43 AM AUTOMATIC QUILLING MACHINE OPERATOR): The patient continues to do well 1 [...] expectantly. Assessment & Plan (07/14/2017 12:33 PM AUTOMATIC QUILLING MACHINE OPERATOR): The patient has highly symptomatic paroxysmal atrial [...] months. Assessment & Plan (06/10/2017 7:10 PM AUTOMATIC QUILLING MACHINE OPERATOR): Increasingly frequent episodes of irregular heart rhythm [...] Hypertension Assessment & Plan (09/19/2022 2:48 PM AUTOMATIC QUILLING MACHINE OPERATOR): I gave her a prescription for low-dose amlodipine, and asked her to follow her blood pressure serially. She will follow-up with her coat examiner. Assessment & Plan (06/10/2017 7:10 PM AUTOMATIC QUILLING MACHINE OPERATOR): Blood pressure is adequately controlled on current [...] History Medical History Date Comments Ulcerative colitis Ulcerative Co litis Hypertension Hypertension Asthma Arrhythmia Thyroid disease Atrial [...] on file Legal Sex Female 10:11 AM AUTOMATIC QUILLING MACHINE OPERATOR Gender Identity Female 01/27/2020 11:31 AM CDT Sexual Orientation Straight 01/27/2020 11 :31 AM CDT Obstetrics History Last Filed Vital Signs Vital Sign Reading Time Taken Comments Blood Pressure 130/82 09/04/2024 11:01 AM AUTOMATIC QUILLING MACHINE OPERATOR Pulse 61 09/04/2024 11:01 AM AUTOMATIC QUILLING MACHINE OPERATOR Temperature 36.3 C (97.4 F) 09/10/2017 8:24 AM AUTOMATIC QUILLING MACHINE OPERATOR Respiratory Rate 18 09/06/2022 11:44 AM AUTOMATIC QUILLING MACHINE OPERATOR Oxygen Saturation 98% 09/06/2023 11:01 AM AUTOMATIC QUILLING MACHINE OPERATOR Inhaled Oxygen Concentration - - Weight 73.5 kg (162 lb) 09/04/2024 11:01 AM AUTOMATIC QUILLING MACHINE OPERATOR Height 170.2 cm (5' 7) 09/04/2024 11:01 AM AUTOMATIC QUILLING MACHINE OPERATOR Body Mass Index 25.37 09/04/2024 11:01 AM AUTOMATIC QUILLING MACHINE OPERATOR Plan of Treatment Health Maintenance Due Date Last Done Comments Depression Screening 1945 Fall Risk Assessment 1945 Osteoporosis Screening-Bone Density Scan 1943 DTaP/Tdap/Td Vaccine (1 - Tdap) 1954 Hepatitis B Screening 1961 Zoster Vaccine (1 of 2) 1993 Well Visit 65+ 2008 Pneumococcal vaccine 65+ (2 of 2 - PPSV23) 03/18/2017 03/18/2016 Influenza Vaccine (#1) 2025 9, 05/05/2018, 06/14/2017, Additional history exists Insurance [facility] Advance Directives For more information, please contact: [phone] * Full Code (Latest Code Status on File) Date Activated Date Inactivated Comments 09/09/2017 5:14 PM 09/10/2017 1:09 PM Care Teams Community Mental Health Social Worker Relationship Specialty Start Date End Date Brad Larkin DO PCP - General Internal Medicine 09/06/22
--- OUTSIDE RECORDS SUMMARY | 2025-03-01 12:02 | XMS_ITS | Referral Summary ---
Author Organization [facility] Address [address] [place] [address] Care Team Providers Care Adult Family Home Program Manager Name Role Phone Brad Larkin DO Primary Care Provider [phone]- [phone] Allergies No known active allergies Medications montelukast [...] (IOL) (Dr. 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 We will continue the patient on the same dose and schedule. As long as the patient continues on this medication, an ECG should be performed at least every 6 months to monitor for toxicity. 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 12-lead ECG today does not demonstrate any changes that would prohibit continued use of flecainide. We will continue the patient on the same dose and schedule. As long as the patient continues on this medication, an ECG should be performed at least every 6 months to monitor for toxicity. Assessment & Plan (09/06/2023 1:55 PM CNC SPECIALIST): Presently doing well with low-dose flecainide. 12-lead ECG today does not demonstrate any changes that would prohibit continued use of flecainide. We will continue the patient on the same dose and schedule. As long as the patient continues on this medication, an ECG should be performed at least every 6 months to monitor for toxicity. Assessment & Plan (09/19/2022 2:47 PM CNC SPECIALIST): Minimally symptomatic, well-suppressed with flecainide. 12-lead ECG today does not demonstrate any changes that would prohibit continued use of flecainide. We will continue the patient on the same dose and schedule. As long as the patient continues on this medication, an ECG should be performed at least every 6 months to monitor for toxicity. Assessment & Plan (09/08/2021 4:00 PM CNC SPECIALIST): Symptomatic ventricular ectopy, doing well flecainide. 12-lead ECG today does not demonstrate any changes that would prohibit continued use of flecainide. We will continue the patient on the same dose and schedule. As long as the patient continues on this medication, an ECG should be performed at least every 6 months to monitor for toxicity. Assessment & Plan (09/09/2020 2:01 PM CNC SPECIALIST): Symptomatic ventricular ectopy, suppressed by ongoing [...] considered. Assessment & Plan (09/28/2019 12:50 PM CNC SPECIALIST): Outflow tract ventricular ectopy is completely asymptomatic. No additional therapy is necessary. The patient will follow-up with me in 6 months for an office visit and twelve- lead ECG. S/P ablation of atrial fibrillation 10/24/2017 At risk for amiodarone toxicity with truck terminal manager u se 07/14/2017 Assessment & Plan (07/14/2017 12:34 PM CNC SPECIALIST): As long as the patient continues on this medication, an ECG should be performed at least every 6 months to monitor for toxicity. Liver function tests and thyroid function tests should be performed at least every 6 months, an assessment of pulmonary function will be needed yearly. We will obtain baseline labs. Anticoagulation management encounter 07/14/2017 Assessment & Plan (09/19/2022 2:47 PM CNC SPECIALIST): She is off anticoagulation per personal [...] ablation. Assessment & Plan (07/14/2017 12:34 PM CNC SPECIALIST): The patient has a [id number] score of 3 (annualized risk of stroke 3.2 %). I have therefore recommended that she remain anticoagulated. The patient will follow-up with me in 6 months for an office visit and twelve- lead ECG. LBBB (left bundle branch block) 01/11/2017 Assessment & Plan (09/04/2024 11:22 AM CNC SPECIALIST): Chronic left bundle branch block, not associated with syncope or other symptoms compatible with bradycardia. No symptoms of congestive heart failure. Assessment & Plan (09/19/2022 2:47 PM CNC SPECIALIST): Asymptomatic left bundle branch block, of overall indeterminate clinical significance. No LV dysfunction or symptoms of bradycardia. Her left bundle branch block preceded initiation of flecainide, and has not changed in response to this medication. Assessment & Plan (09/08/2021 4:01 PM CNC SPECIALIST): Left bundle branch block, without associated bradycardia. We will continue to follow clinically. The patient will follow-up with me in 12 months for an office visit and twelve- lead ECG. Assessment & Plan (09/09/2020 2:02 PM CNC SPECIALIST): Of indeterminate clinical significance. There has [...] msec. Assessment & Plan (09/28/2019 12:45 PM CNC SPECIALIST): The patient reported an episode of [...] months. Assessment & Plan (09/14/2018 10:44 AM CNC SPECIALIST): She has longstanding left bundle branch [...] ECG. Assessment & Plan (07/14/2017 12:35 PM CNC SPECIALIST): The patient has left bundle branch block pattern is asymptomatic and not associated with LV dysfunction. Assessment & Plan (06/10/2017 7:11 PM CNC SPECIALIST): Chronic. Previously assessed and found to [...] fibrillation Assessment & Plan (09/04/2024 11:21 AM CNC SPECIALIST): The patient is 7 years status post ablation for atrial fibrillation, doing well. Maintaining sinus rhythm with flecainide, though this medication was initiated for ventricular ectopy, not recurrent atrial arrhythmia. No changes to management today The patient has a [id number] score of 4. I have therefore recommended continued anticoagulation for thromboprophylaxis. The patient will follow-up with me in 12 months for an office visit and twelve- lead ECG. Assessment & Plan (09/06/2023 1:56 PM CNC SPECIALIST): The patient is 6 years status post ablation for atrial fibrillation, doing well. Maintaining sinus rhythm. No changes to management at present. She is on flecainide for ventricular ectopy, and has experienced recurrence of atrial fibrillation specifically. The patient has a [id number] score of 4. She is off anticoagulation per personal preference. The patient will follow-up with me in 12 months for an office visit and twelve- lead ECG. Assessment & Plan (09/19/2022 2:46 PM CNC SPECIALIST): Five years status post catheter ablation without recurrence. We will continue to monitor and follow closely, and manage new / recurrent arrhythmia expectantly. Assessment & Plan (09/08/2021 4:01 PM CNC SPECIALIST): Paroxysmal atrial fibrillation, 4 years status post catheter ablation. She has not experienced recurrence. Assessment & Plan (09/09/2020 2:02 PM CNC SPECIALIST): Highly symptomatic paroxysmal atrial fibrillation, presently [...] 2017. Assessment & Plan (09/28/2019 12:50 PM CNC SPECIALIST): No recurrence since her ablation in August 2017. We will continue to monitor and follow closely, and manage new / recurrent arrhythmia expectantly. She is off anticoagulation per personal preference. If she experiences recurrence, we will reinitiate. Assessment & Plan (09/14/2018 10:43 AM CNC SPECIALIST): The patient continues to do well [...] expectantly. Assessment & Plan (07/14/2017 12:33 PM CNC SPECIALIST): The patient has highly symptomatic paroxysmal [...] months. Assessment & Plan (06/10/2017 7:10 PM CNC SPECIALIST): Increasingly frequent episodes of irregular heart [...] Hypertension Assessment & Plan (09/19/2022 2:48 PM CNC SPECIALIST): I gave her a prescription for low-dose amlodipine, and asked her to follow her blood pressure serially. She will follow-up with her cloth examiner machine. Assessment & Plan (06/10/2017 7:10 PM CNC SPECIALIST): Blood pressure is adequately controlled on [...] on file Legal Sex Female 10:11 AM CNC SPECIALIST Gender Identity Female 01/27/2020 11:31 AM CDT Sexual Orientation Straight 01/27/2020 11 :31 AM CDT Last Filed Vital Signs Vital Sign Reading Time Taken Comments Blood Pressure 130/82 09/04/2024 11:01 AM CNC SPECIALIST Pulse 61 09/04/2024 11:01 AM CNC SPECIALIST Temperature 36.3 C (97.4 F) 09/10/2017 8:24 AM CNC SPECIALIST Respiratory Rate 18 09/06/2022 11:44 AM CNC SPECIALIST Oxygen Saturation 98% 09/06/2023 11:01 AM CNC SPECIALIST Inhaled Oxygen Concentration - - Weight 73.5 kg (162 lb) 09/04/2024 11:01 AM CNC SPECIALIST Height 170.2 cm (5' 7) 09/04/2024 11:01 AM CNC SPECIALIST Body Mass Index 25.37 09/04/2024 11:01 AM CNC SPECIALIST Plan of Treatment Not on file Insurance Member Subscriber Plan / Payer ( fective 2018-Present) Name:FALLON AGARWAL Relation to Subscriber:Self Name:Fallon Agarwal Payer ID:[id number] (NAIC) Type:MEDICARE RISK OTHER Address: [place] [id number] Advance Directives For more information, please contact: [phone] * Full Code (Latest Code Status on File) Date Activated Date Inactivated Comments 09/09/2017 5:14 PM 09/10/2017 1:09 PM Care Teams Adult Family Home Program Manager Relationship Specialty Start Date End Date Brad Larkin DO PCP - General Internal Medicine 09/06/22
--- OUTSIDE RECORDS SUMMARY | 2025-03-01 12:02 | XMS_ITS | Clinical Summary ---
Author Organization [facility] Address [facility] [place] [address] Care Team Providers Care Roller Operator Name Role Phone Unavailable Primary Care Provider [...] Td Vaccines ( 1 - Tdap) 1962 Pneumococcal Vaccine: 50+ Ye ars (1 of 1 - PCV) 1993 Zoster Vaccines (1 of 2) 1993 Annual Medicare Wellness Visit 2008 Dexa Scan (General) 2008 RSV Immunization or 60+ Years (1 - 1-dose 75+ series) 2018 COVID-19 Vaccine (2023-2 5 season) 2024 Meningococcal B Vaccine Aged Out No l onger eligible based on patient's age to complete this topic Meningococcal Vaccine Aged Out No tiffanie cliff eligible based on patient's age to complete this topic RSV Immunizations Under 20 Months Aged Out No longer eligible based on patient's age to complete this topic Insurance ESSENCE
[2025-03-01 15:49] LABS: Thyroid Stimulating Hormone 7.020 uIU/mL (0.465-4.680)
== END 2025-03-01 11:45 | disposition home or self-care (01) ==
LOC: ANHGOSHLAB 11:45
PROVIDERS: PCP Internal Medicine; Visit Provider Clinical Nurse Specialist
DX: E03.9 Hypothyroidism, unspecified (principal)
CPT/HCPCS: 36415; 84443

== ENCOUNTER 2025-03-22 13:19 | Outpatient (CLI) | payer OTHER, SELFPAY ==
--- NOTE | ~2025-03-22 | US_ITS ---
US thyroid INDICATION: Nontoxic thyroid nodules TECHNIQUE: Real-time sonographic images of the thyroid gland were obtained. COMPARISON: Comparison to multiple prior studies sequentially, with oldest reviewed study dated 07/03/2016. FINDINGS: The right thyroid lobe measures 3.5 x 1.3 x 1.3 cm. The left thyroid lobe measures 2.9 x 1.3 x 1.0 cm. In the right thyroid lobe there is a solid wider than tall hypoechoic mass with smooth margins and no echogenic foci measuring 1.5 x 0.8 x 1 cm, TR 4 this is not significantly changed compared with prior study. Also in the right lobe there is a solid wider than tall hyperechoic mass with smooth margins and no echogenic foci measuring 1.3 cm maximum dimension, without significant change. Isthmus measures 2 mm. In the left thyroid lobe there is an oval hypoechoic wider than tall smoothly marginated solid mass without echogenic foci measuring 7 mm, TR 4, likely benign. IMPRESSION: 1. No significant change to multinodular goiter. Consider follow-up ultrasound in 12 months. Reviewed, dictated and finalized at location O.
== END 2025-03-22 13:20 | disposition home or self-care (01) ==
PROVIDERS: PCP Clinical Nurse Specialist; Visit Provider Clinical Nurse Specialist
DX: E04.1 Nontoxic single thyroid nodule (principal); E03.9 Hypothyroidism, unspecified
CPT/HCPCS: 76536

== ENCOUNTER 2025-03-31 09:34 | Outpatient (CLI) | payer OTHER, SELFPAY ==
--- OUTSIDE RECORDS SUMMARY | 2024-04-07 12:30 | XMS_ITS ---
Author Organization [facility] ([address]) Address [address] [place] [address] Care Team Providers Care Electronic Imager Name Role Phone Brad Larkin Primary Care Provider Unavailab Angelita Crowley Unavailable [phone] Gita Vines Unavailable Unavailable Social History Sex Assigned At : Social History Observation Description Sex Assigned At Female Encounters Encounter Location Date Provider Diagnosis [facility] [address] [place] [address] 04/07/2024 Angelita Bello Plan Of Treatment Next Appt Details Provider Name:Angelita leary, 07/13/2025 10:00:00 AM, [address] [facility], [address], [place], [address], Progress Notes * Fallon AGARWAL LDOB: 3 (79 yo F)Acc No.[id number]:04/07/2024 [facility] Patient: Fallon BRUNO Provider: Ronit Bello MD :1945 A ge:78 Y S ex:Female Date:04/07/2024 Address:[address] [place] [address], [place]-[address] Pcp:Brad Larkin Subjective: * Chief Complaints: * * Medical History: Objective: * Vitals: Assessment: Plan: * Treatment: * Billing Information: * Visit Code: * Procedure Codes: * Electronic signature of Trini Bello MD on 03/31/2025 at 10:18 AM CDT Sign off status: Pending * Provider: Ronit Bello MD Date: 04/07/2024 Generated for Anthony fraser/Manuel/Liliana on: 03/31/2025 10:18 AM CDT
--- OUTSIDE RECORDS SUMMARY | 2024-04-21 12:30 | XMS_ITS ---
Author Organization [facility] ([address]) Address [address] [place] [address] Care Team Providers Care Top Lifter Name Role Phone Brad Larkin Primary Care Provider Unavailab Angelita Crowley Unavailable [phone] Gita Vines Unavailable Unavailable Social History Sex Assigned At : Social History Observation Description Sex Assigned At Female Encounters Encounter Location Date Provider Diagnosis [facility] [address] [place] [address] 04/21/2024 Angelita Bello Plan Of Treatment Next Appt Details Provider Name:Angelita leary, 07/13/2025 10:00:00 AM, [address] [employer] [employer] [facility], [address], [place], [address], Progress Notes * Fallon AGARWAL LDOB: 3 (79 yo F)Acc No.[id number]:04/21/2024 [facility] Patient: Fallon BRUNO Provider: Ronit Bello MD :1945 A ge:78 Y S ex:Female Date:04/21/2024 Address:[address] [place] [address], [place], [place] Pcp:Brad Larkin Subjective: * Chief Complaints: * * Medical History: Objective: * Vitals: Assessment: Plan: * Treatment: * Billing Information: * Visit Code: * Procedure Codes: * Electronic signature of Trini Bello MD on 03/31/2025 at 10:18 AM CDT Sign off status: Pending * Provider: Ronit Bello MD Date: 04/21/2024 Generated for Anthony fraser/Manuel/Liliana on: 03/31/2025 10:18 AM CDT
--- OUTSIDE RECORDS SUMMARY | 2025-03-31 10:19 | XMS_ITS | Patient Health Record ---
Author Organization [facility] [employer] [place] ([address]) Address [address] [place] [address] Care Team Providers Care Policeman Name Role Phone Brad Larkin Primary Care Provider Unavailab Angelita Crowley Unavailable [phone] Gita Vines Unavailable Unavailable Allergies Allergen (clinical [...] Provider Speciality Internal M edicine Referred Organization [facility] Referred Provider Angelita Bello Referred Address [address],[place], [place],[address],[place] Referred Provider Specialty Allergy/Immu nology Referral Priority [...] review and pick correct strength-formulat ion from Delivered options. If intended option is not shown, [...] Status Risk Notes Problem Chronic allergic conjunctivitis (48418447) Other chronic allergic conjunctivitis (H10.45) Active confirmed Problem Allergic rhinitis caused by pollen (disorder) (77366325) Allergic rhinitis due to pollen (J30.1) Active confirmed Problem Allergic rhinitis caused by animal hair and dander (012956692516001) Allergic rhinitis due to animal (cat) (dog) hair and dander (J30.81) Active confirmed Problem Allergic rhinitis (61132290) Other allergic rhinitis (J30.89) Active confirmed Problem Chronic pansinusitis (13386340) Chronic pansinusitis (J32.4) Active confirmed Problem Uncomplicated moderate persistent asthma (219165417) Moderate persistent asthma, uncomplicated (J45.40) Active confirmed Problem Dermatitis (335633668) Dermatitis, unspecified (L30.9) Active confirmed Problem Allergic rhinitis caused by pollen (disorder) (76863217) Allergic rhinitis due to pollen (J30.1) Active confirmed Problem Allergic rhinitis caused by animal hair and dander (917956811186765) Allergic rhinitis due to animal (cat) (dog) hair and dander (J30.81) Active confirmed Problem Allergic rhinitis (26170575) Other allergic rhinitis (J30.89) Active confirmed Problem Chronic allergic conjunctivitis (93832104) Other chronic allergic conjunctivitis (H10.45) Active confirmed Problem Allergy status t o other antibiotic agents (Z88.1) Active confirmed Vital Signs Oximetry 99 % 01/19/2025 Blood pressure diastolic 69 mm Hg 01/19/2025 Height 67 in 01/19/2025 Blood pressure systolic 123 mm Hg 01/19/2025 Weight 161.6 lbs 01/19/2025 BMI 25.31 kg/m2 01/19/2025 Encounters Encounter Location Date Provider Diagnosis [facility] [address] [place] [phone] 04/28/2024 Angelita Bello Moderate persistent asthma, uncomplicated J45.40 ; Chronic pansinusitis J32.4 ; Allergy status to other antibiotic agents Z88.1 ; Allergic rhinitis due to pollen J30.1 ; Allergic rhinitis due to animal (cat) (dog) hair and dander J30.81 ; Other allergic rhinitis J30.89 and Other chronic allergic conjunctivitis H10.45 [facility] [address] [place] [phone] 09/08/2024 Angelita Bello Moderate persistent asthma, uncomplicated J45.40 ; Chronic pansinusitis J32.4 ; Allergy status to other antibiotic agents Z88.1 ; Allergic rhinitis due to pollen J30.1 ; Allergic rhinitis due to animal (cat) (dog) hair and dander J30.81 ; Other allergic rhinitis J30.89 and Other chronic allergic conjunctivitis H10.45 [facility] [address] [place] [phone] 01/19/2025 Angelita Bello Moderate persistent asthma, uncomplicated J45.40 ; Chronic pansinusitis J32.4 ; Allergy status to other antibiotic agents Z88.1 ; Allergic rhinitis due to pollen J30.1 ; Allergic rhinitis due to animal (cat) (dog) hair and dander J30.81 ; Other allergic rhinitis J30.89 and Other chronic allergic conjunctivitis H10.[address] [phone] 04/06/2024 Angelita Bello Allergic rhinitis du e to pollen J30.[address] [phone] 04/29/2024 Angelita Bello Moderate persistent asthma, uncomplicated J45.40 [facility] [address] [place] [address] 08/11/2024 Angelita Bello Moderate persistent asthma, uncomplicated J45.40 [facility] [address] [place] [address] 09/09/2024 Angelita Bello Assessments Encounter Date Diagnosis (ICD Code) Assessment Notes Treatment Notes Treatment Clinical Notes Section Notes 04/06/2024 Allergic rhinitis due to pollen (ICD-10 - J30.1) 04/28/2024 Chronic pansinusitis (ICD-10 - J32.4) CT sinus 05-18-22 showed moderate mucosal thickening of the maxillary, ethmoid, sphenoid and frontal sinuses. Sinus surgery was performed . 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 Normal tetanus and HIB. S. Pneumo +13.23 serotypes. She is going to receive Pneumovax at [facility]. Start Zpack for current symptoms. 04/28/2024 [...] Provider Name:Angelita leary, 07/13/2025 10:00:00 AM, [address] [facility], [address], [place], [address], Insurance Providers Payer Name Payer Address Payer Phone Subscriber Number Group Number Insured Name Patient Relationship to Insured Coverage Start Date Coverage End Date [employer] [address] [address] [place] [phone] [id number] Tiffani Agarwala Self - patient is the insured 4 Medical (General) History Medical History History ICD Code Atrial Fibrillation Moderate persistent asthma, uncomplicate d J45.40 Ulcerative Colitis Surgical History Surgery Date(Month/Year) Hysterectomy 1983 Sinus Surgery 2022 iliostomy for ulcerative colitis 1997
--- OUTSIDE RECORDS SUMMARY | 2025-03-31 10:19 | XMS_ITS | Clinical Summary ---
Author Organization [facility] Address [address] [place] [address] Care Team Providers Care Stock Chaser Name Role Phone Brad Larkin DO Primary Care Provider [phone] Allergies No known active allergies Medications montelukast [...] (IOL) (Dr. Everett) Release updated glasses Rx duplication specialist current use of antiarrhythmic drug Assessment & Plan (09/09/2020 2:01 PM NUCLEAR MEDICINE OFFICER): 12-lead ECG today does not demonstrate any changes that would prohibit continued use of flecainide. We will continue the patient on the same dose and schedule. As long as the patient continues on this medication, an ECG should be performed at least every 6 months to monitor for toxicity. Dizziness and giddiness 02/01/2020 Ventricular ectopy 09/28/2019 Assessment & Plan (09/04/2024 11:21 AM NUCLEAR MEDICINE OFFICER): Symptomatic ventricular ectopy, suppressed with flecainide. 12-lead ECG today does not demonstrate any changes that would prohibit continued use of flecainide. We will continue the patient on the same dose and schedule. As long as the patient continues on this medication, an ECG should be performed at least every 6 months to monitor for toxicity. Assessment & Plan (09/06/2023 1:55 PM NUCLEAR MEDICINE OFFICER): Presently doing well with low-dose flecainide. 12-lead ECG today does not demonstrate any changes that would prohibit continued use of flecainide. We will continue the patient on the same dose and schedule. As long as the patient continues on this medication, an ECG should be performed at least every 6 months to monitor for toxicity. Assessment & Plan (09/19/2022 2:47 PM NUCLEAR MEDICINE OFFICER): Minimally symptomatic, well-suppressed with flecainide. 12-lead ECG today does not demonstrate any changes that would prohibit continued use of flecainide. We will continue the patient on the same dose and schedule. As long as the patient continues on this medication, an ECG should be performed at least every 6 months to monitor for toxicity. Assessment & Plan (09/08/2021 4:00 PM NUCLEAR MEDICINE OFFICER): Symptomatic ventricular ectopy, doing well flecainide. 12-lead ECG today does not demonstrate any changes that would prohibit continued use of flecainide. We will continue the patient on the same dose and schedule. As long as the patient continues on this medication, an ECG should be performed at least every 6 months to monitor for toxicity. Assessment & Plan (09/09/2020 2:01 PM NUCLEAR MEDICINE OFFICER): Symptomatic ventricular ectopy, suppressed by ongoing low-dose [...] considered. Assessment & Plan (09/28/2019 12:50 PM NUCLEAR MEDICINE OFFICER): Outflow tract ventricular ectopy is completely asymptomatic. No additional therapy is necessary. The patient will follow-up with me in 6 months for an office visit and twelve- lead ECG. S/P ablation of atrial fibrillation 10/24/2017 At risk for amiodarone toxicity with uptwister tender u se 07/14/2017 Assessment & Plan (07/14/2017 12:34 PM NUCLEAR MEDICINE OFFICER): As long as the patient continues on this medication, an ECG should be performed at least every 6 months to monitor for toxicity. Liver function tests and thyroid function tests should be performed at least every 6 months, an assessment of pulmonary function will be needed yearly. We will obtain baseline labs. Anticoagulation management encounter 07/14/2017 Assessment & Plan (09/19/2022 2:47 PM NUCLEAR MEDICINE OFFICER): She is off anticoagulation per personal preference. [...] ablation. Assessment & Plan (07/14/2017 12:34 PM NUCLEAR MEDICINE OFFICER): The patient has a [id number] score of 3 (annualized risk of stroke 3.2 %). I have therefore recommended that she remain anticoagulated. The patient will follow-up with me in 6 months for an office visit and twelve- lead ECG. LBBB (left bundle branch block) 01/11/2017 Assessment & Plan (09/04/2024 11:22 AM NUCLEAR MEDICINE OFFICER): Chronic left bundle branch block, not associated with syncope or other symptoms compatible with bradycardia. No symptoms of congestive heart failure. Assessment & Plan (09/19/2022 2:47 PM NUCLEAR MEDICINE OFFICER): Asymptomatic left bundle branch block, of overall indeterminate clinical significance. No LV dysfunction or symptoms of bradycardia. Her left bundle branch block preceded initiation of flecainide, and has not changed in response to this medication. Assessment & Plan (09/08/2021 4:01 PM NUCLEAR MEDICINE OFFICER): Left bundle branch block, without associated bradycardia. We will continue to follow clinically. The patient will follow-up with me in 12 months for an office visit and twelve- lead ECG. Assessment & Plan (09/09/2020 2:02 PM NUCLEAR MEDICINE OFFICER): Of indeterminate clinical significance. There has been [...] msec. Assessment & Plan (09/28/2019 12:45 PM NUCLEAR MEDICINE OFFICER): The patient reported an episode of near-syncope. [...] months. Assessment & Plan (09/14/2018 10:44 AM NUCLEAR MEDICINE OFFICER): She has longstanding left bundle branch block [...] ECG. Assessment & Plan (07/14/2017 12:35 PM NUCLEAR MEDICINE OFFICER): The patient has left bundle branch block pattern is asymptomatic and not associated with LV dysfunction. Assessment & Plan (06/10/2017 7:11 PM NUCLEAR MEDICINE OFFICER): Chronic. Previously assessed and found to be [...] fibrillation Assessment & Plan (09/04/2024 11:21 AM NUCLEAR MEDICINE OFFICER): The patient is 7 years status post ablation for atrial fibrillation, doing well. Maintaining sinus rhythm with flecainide, though this medication was initiated for ventricular ectopy, not recurrent atrial arrhythmia. No changes to management today The patient has a [id number] score of 4. I have therefore recommended continued anticoagulation for thromboprophylaxis. The patient will follow-up with me in 12 months for an office visit and twelve- lead ECG. Assessment & Plan (09/06/2023 1:56 PM NUCLEAR MEDICINE OFFICER): The patient is 6 years status post ablation for atrial fibrillation, doing well. Maintaining sinus rhythm. No changes to management at present. She is on flecainide for ventricular ectopy, and has experienced recurrence of atrial fibrillation specifically. The patient has a KKU7VQ3-YKHr score of 4. She is off anticoagulation per personal preference. The patient will follow-up with me in 12 months for an office visit and twelve- lead ECG. Assessment & Plan (09/19/2022 2:46 PM NUCLEAR MEDICINE OFFICER): Five years status post catheter ablation without recurrence. We will continue to monitor and follow closely, and manage new / recurrent arrhythmia expectantly. Assessment & Plan (09/08/2021 4:01 PM NUCLEAR MEDICINE OFFICER): Paroxysmal atrial fibrillation, 4 years status post catheter ablation. She has not experienced recurrence. Assessment & Plan (09/09/2020 2:02 PM NUCLEAR MEDICINE OFFICER): Highly symptomatic paroxysmal atrial fibrillation, presently 3 [...] 2017. Assessment & Plan (09/28/2019 12:50 PM NUCLEAR MEDICINE OFFICER): No recurrence since her ablation in August 2017. We will continue to monitor and follow closely, and manage new / recurrent arrhythmia expectantly. She is off anticoagulation per personal preference. If she experiences recurrence, we will reinitiate. Assessment & Plan (09/14/2018 10:43 AM NUCLEAR MEDICINE OFFICER): The patient continues to do well 1 [...] expectantly. Assessment & Plan (07/14/2017 12:33 PM NUCLEAR MEDICINE OFFICER): The patient has highly symptomatic paroxysmal atrial [...] months. Assessment & Plan (06/10/2017 7:10 PM NUCLEAR MEDICINE OFFICER): Increasingly frequent episodes of irregular heart rhythm [...] Hypertension Assessment & Plan (09/19/2022 2:48 PM NUCLEAR MEDICINE OFFICER): I gave her a prescription for low-dose amlodipine, and asked her to follow her blood pressure serially. She will follow-up with her recruiting operations consultant. Assessment & Plan (06/10/2017 7:10 PM NUCLEAR MEDICINE OFFICER): Blood pressure is adequately controlled on current regimen. No change was made. Assessment & Plan (01/11/2017 1:55 PM CDT): Blood pressure is adequately controlled on current regimen. No change was made. Encounters Date Type Department Care Team Description 03/03/2025 Telephone [facility] [address] [address] Júnior Dupree MD from Last 3 Months Surgical History Surgery [...] on file Legal Sex Female 10:11 AM NUCLEAR MEDICINE OFFICER Gender Identity Female 01/27/2020 11:31 AM CDT Sexual Orientation Straight 01/27/2020 11 :31 AM CDT Obstetrics History Last Filed Vital Signs Vital Sign Reading Time Taken Comments Blood Pressure 130/82 09/04/2024 11:01 AM NUCLEAR MEDICINE OFFICER Pulse 61 09/04/2024 11:01 AM NUCLEAR MEDICINE OFFICER Temperature 36.3 C (97.4 F) 09/10/2017 8:24 AM NUCLEAR MEDICINE OFFICER Respiratory Rate 18 09/06/2022 11:44 AM NUCLEAR MEDICINE OFFICER Oxygen Saturation 98% 09/06/2023 11:01 AM NUCLEAR MEDICINE OFFICER Inhaled Oxygen Concentration - - Weight 73.5 kg (162 lb) 09/04/2024 11:01 AM NUCLEAR MEDICINE OFFICER Height 170.2 cm (5' 7) 09/04/2024 11:01 AM NUCLEAR MEDICINE OFFICER Body Mass Index 25.37 09/04/2024 11:01 AM NUCLEAR MEDICINE OFFICER Plan of Treatment Health Maintenance Due Date Last Done Comments Depression Screening 1945 Fall Risk Assessment 1945 Osteoporosis Screening-Bone Density Scan 1945 DTaP/Tdap/Td Vaccine (1 - Tdap) 1954 Hepatitis B Screening 1961 Zoster Vaccine (1 of 2) 1993 Well Visit 65+ 2008 Pneumococcal vaccine 65+ (2 of 2 - PCV20 or PCV21) 03/18/2017 03/18/2016 Influenza Vaccine (#1) 2025 9, 05/05/2018, 06/14/2017, Additional history exists Insurance [facility] Advance Directives For more information, please contact: [phone] * Full Code (Latest Code Status on File) Date Activated Date Inactivated Comments 09/09/2017 5:14 PM 09/10/2017 1:09 PM Care Teams Stock Chaser Relationship Specialty Start Date End Date Brad Larkin DO PCP - General Internal Medicine 09/06/22
--- OUTSIDE RECORDS SUMMARY | 2025-03-31 10:19 | XMS_ITS | Clinical Summary ---
Author Organization [facility] Address [id number] [place] [address] Care Team Providers Care Safety Relief Valve Technician Name Role Phone Unavailable Primary Care Provider [...]
[2025-03-31 13:58] LABS: Free T3 3.91 pg/mL (2.34-5.61); Free T4 Free Thyroxine 2.02 ng/dL (0.78-2.19)
[2025-03-31 14:04] LABS: Thyroid Stimulating Hormone 0.471 uIU/mL (0.465-4.680)
== END 2025-03-31 09:35 | disposition home or self-care (01) ==
LOC: ANHGOSHLAB 09:35
PROVIDERS: PCP Clinical Nurse Specialist; Visit Provider Clinical Nurse Specialist
DX: E03.9 Hypothyroidism, unspecified (principal)
CPT/HCPCS: 36415; 84439; 84443; 84481

== ENCOUNTER 2025-05-26 10:26 | Outpatient (CLI) | payer OTHER, SELFPAY ==
--- NOTE | ~2025-05-26 | DEXA_ITS ---
Bone Density Report Name: ARGENIS KOEHLER Age: 80 Sex: Female Ethnicity: White Date of : 1945 Indication: postmenopausal osteoporosis; monitoring treatment; inflammatory bowel disease; history of glucocorticoids; asthma or emphysema; hysterectomy; Referring Provider: Sarah Boyer Study: Bone densitometry was performed. Exam Date: May 26, 2025 Accession number: [id number] Bone Density: Region BMD T-score Z-score Classification AP Spine(L1, L2, L3) 0.939 -0.7 2.0 Normal Femoral Neck (Left) 0.632 -2.0 0.4 Osteopenia Total Hip (Left) 0.654 -2.4 -0.2 Osteopenia Femoral Neck (Right) 0.725 -1.1 1.3 Osteopenia Total Hip (Right) 0.636 -2.5 -0.3 Osteoporosis Total Hip Mean 0.645 -2.5 -0.3 Osteopenia World Health Organization criteria for BMD impression classify patients as: Normal (T-score at or above -1.0), Osteopenia (T-score between -1.0 and -2.5), or Osteoporosis (T-score at or below -2.5). 10-year Fracture Risk: FRAX not reported because: Some T-score for Spine Total or Hip Total or Femoral Neck at or below -2.5 Treated for osteoporosis Previous Exams: -- Region Exam Age BMD T-score BMD Change BMD Change Date g/cm2 vs Baseline vs Previous -- AP Spine (L1-L3) 05/26/2025 80 0.939 -0.7 1.6% 1.6% 05/24/2023 78 0.924 -0.9 Total Hip(Left) 05/26/2025 80 0.654 -2.4 -3.7% -3.7% 05/24/2023 78 0.680 -2.2 Total Hip(Right) 05/26/2025 80 0.636 -2.5 -1.0% -1.0% 05/24/2023 78 0.643 -2.5 -- *Denotes significance at 95% confidence level, LSC for AP Spine = 0.022 g/cm2, LSC for Total Hip = 0.027 g/cm2 Clinical Information Provided by Patient: Has taken Glucocorticoids Is being treated for osteoporosis Has used the following medications: Prolia (i.e. denosumab), Vitamin D Has the following medical conditions: Asthma or Emphysema, Inflammatory bowel diseases, Hysterectomy Patient maximum height was 68 Menopause Age: 37 Onset of menses at age 11 Number of children 2 Impression: The patient has osteoporosis, based on the Right Total Hip T-score. The patient has risk factors, including: history of glucocorticoid therapy. No significant bone loss was observed. Discussion: PATIENT UNDER TREATMENT WITH NO SIGNIFICANT BMD LOSS SINCE LAST EXAM. In an untreated patient, BMD typically declines with age. A lack of decline or gain is usually a sign that treatment is efficacious and fracture risk is reduced. It is important to ask patients whether they are taking their medications and to encourage continued and appropriate compliance with their osteoporosis therapies to reduce fracture risk. It is also important to review their risk factors and encourage appropriate calcium and vitamin D intakes, exercise, fall prevention and other lifestyle measures. Follow-Up: Consider a repeat BMD and Vertebral Fracture Assessment (VFA) exam in 2 years or sooner if medically necessary, to reassess this patient's status. Reported by: JACKIE on 05/26/2025 10:46:00 AM. Reviewed, dictated and finalized at location A.
== END 2025-05-26 10:27 | disposition home or self-care (01) ==
LOC: MICIMG 10:27
PROVIDERS: PCP Clinical Nurse Specialist; Visit Provider Clinical Nurse Specialist
DX: Z78.0 Asymptomatic menopausal state (principal); M85.852 Other specified disorders of bone density and structure, left thigh; M85.851 Other specified disorders of bone density and structure, right thigh; M81.0 Age-related osteoporosis without current pathological fracture
CPT/HCPCS: 77080